=== PATIENT | male | born 1935 | race Caucasian/White ===

== ENCOUNTER → 2017-08-08 10:56 | Outpatient (CLI) | payer OTHER, MEDICARE, SELFPAY ==
[2017-08-08 13:11] LABS: Amphetamine Urine VISTA NEGATIVE (<1000 ng/mL); Barbiturate Urine VISTA NEGATIVE (< 200 ng/mL); Benzodiazepine Urine VISTA NEGATIVE (< 200 ng/mL); Cocaine Urine VISTA NEGATIVE (< 300 ng/mL); Ecstacy Urine VISTA NEGATIVE (< 500 ng/mL); Methadone Urine VISTA NEGATIVE (< 300 ng/mL); PCP Urine VISTA NEGATIVE (< 25 ng/mL); THC Urine VISTA NEGATIVE (< 50 ng/mL); Vista UDS pH Range 6
== END ==
PROVIDERS: Family Provider Family Medicine; PCP Family Medicine; Visit Provider Anesthesiology Pain Medicine
DX: F11.20 Opioid dependence, uncomplicated (principal)
CPT/HCPCS: 80307

== ENCOUNTER → 2017-08-26 12:12 | Outpatient (CLI) | payer OTHER, MEDICARE, SELFPAY ==
[2017-08-26 14:03] LABS: Absolute Neutrophil Count 4.4 X10^3/uL (2.0-7.7); Basophil# 0.07 X10^3/uL; Basophil% 0.9 % (0-1); Eosinophil# 0.27 X10^3/uL; Eosinophils% 3.4 % (0-5); Hematocrit 37.7 % (40-54); Hemoglobin 12.6 g/dl (13.0-16.5); Lymphocyte % 24.8 % (19-41); Mean Corp Hgb Conc 33.4 g/gl (32-36); Mean Corpuscular Hgb 29.9 pg (27.0-32.0); Mean Corpuscular Volume 89.5 fL (80-94); Mean Platelet Vol. 9.3 fl (6.2-12.0); Monocyte% 14.9 % (0-10); Neutrophil # 4.42 X10^3/uL (2.7-7.7); Neutrophil % 54.9 % (47-70); POSITIVE COUNT NO; POSITIVE DIFFERENTIAL NO; POSITIVE MORPHOLOGY NO; Platelet Count 464 K/mm3 (150-450); RBC Distribution Width CV 14.6 % (11.6-14.6); RBC Distribution Width SD 46.7 fl (35.1-43.9); Red Blood Count 4.21 M/mm3 (4.6-6.2); White Blood Count 8.1 K/mm3 (4.4-11.0)
[2017-08-26 14:40] LABS: ALB/GLOB Ratio 1.1 RATIO (0.9-2.4); AST(SGOT) 20 U/L (15-37); Alanine Aminotransfer ALT/SGPT 19 U/L (16-61); Albumin, Serum 3.7 g/dL (3.2-5.0); Alkaline Phosphatase 61 U/L (45-117); Anion Gap 9 (5-15); BUN 32 mg/dL (7-18); BUN/Creat Ratio 18.4 RATIO (10-20); Calcium,Total 8.6 mg/dL (8.5-10.1); Chloride 106 mmol/L (98-107); Creatinine, Serum 1.74 mg/dL (0.70-1.30); EST Glomerular Filtration Rate 40 mL/min (>60); Est Glom Filt Rate - Afr Amer 49 mL/min (>60); Globulin 3.3 g/dL (2.2-4.2); Glucose 85 mg/dL (74-106); Potassium 3.9 mmol/L (3.5-5.1); Sodium Level 140 mmol/L (136-145); Thyroid Stim Hormone (TSH) 2.58 uIU/mL (0.358-3.74)
== END ==
PROVIDERS: Family Provider Family Medicine; PCP Family Medicine; Visit Provider Family Medicine
DX: R60.0 Localized edema (principal)
CPT/HCPCS: 36415; 80053; 84443; 85025

== ENCOUNTER → 2017-09-03 14:06 | Outpatient (CLI) | payer OTHER, MEDICARE, SELFPAY ==
--- NOTE | 2017-09-03 14:11 | ECHOD_ITS ---
Reason For Study: PEDAL EDEMA Procedure This was a 2D Doppler, Color Flow transthoracic echocardiogram. The exam was of adequate technical quality. Exam performed in department. Left Ventricle Normal LV size. Mild concentric left ventricular hypertrophy. Left ventricular systolic function is normal. The estimated ejection fraction is 55 %. No evidence for diastolic dysfunction. No regional wall motion abnormalities noted. Right Ventricle Normal RV size. Normal systolic function. Atria Normal left atrium. Normal right atrium. No doppler evidence for ASD. Mitral Valve There is mild mitral annular calcification. Extension of the mitral annular calcification onto the base of the posterior mitral valve leaflet. Mild (1+) mitral valve insufficiency. Tricuspid Valve Normal tricuspid valve. Trivial tricuspid valve insufficiency. Right ventricular systolic pressure estimated to be 26 mmHg. Aortic Valve Trisinus/trileaflet aortic valve. Mild focal aortic valve calcification. Pulmonic Valve The pulmonic valve is not well visualized. Great Vessels Normal sized aortic root. Pericardium/Pleural No pericardial effusion. MMode/2D Measurements & Calculations LVIDd: 4.3 cm IVSd: 1.4 cm Ao root diam: 3.2 cm LVIDs: 3.1 cm LVPWd: 1.5 cm RVDd: 2.9 cm FS: 27.8 % LAV(MOD-bp): 64.0 ml EDV(MOD-sp4): 103.9 ml SV(MOD-sp4): 52.7 ml LAV(MOD-bp) Indexed: 32.4 ml/m2 ESV(MOD-sp4): 51.2 ml LAV(MOD-sp2): 61.5 ml EF(MOD-sp4): 50.7 % LAV(MOD-sp4): 54.3 ml LA A4 area: 19.6 cm2 RA A4 area: 11.0 cm2 Time Measurements MV dec time: 0.22 sec Doppler Measurements & Calculations MV E max andi: 87.5 cm/sec Med Peak E' Andi: 7.7 cm/sec Ao V2 max: 171.2 cm/sec MV A max andi: 126.8 cm/sec E/E' med: 11.4 Ao max P.7 mmHg MV E/A: 0.69 LV V1 max: 86.2 cm/sec PA V2 max: 140.4 cm/sec TR max andi: 237.0 cm/sec LV V1 max P.0 mmHg TR max P.8 mmHg Interpretation Summary Left ventricular systolic function is normal. The estimated ejection fraction is 55 %. Mild concentric left ventricular hypertrophy. There is mild mitral annular calcification. Extension of the mitral annular calcification onto the base of the posterior mitral valve leaflet. Mild (1+) mitral valve insufficiency. Trivial tricuspid valve insufficiency. Mild focal aortic valve calcification. Right ventricular systolic pressure estimated to be 26 mmHg. No evidence for diastolic dysfunction. Ordering Physician: Angeline Batista Referring Physician: Angeline Batista Performed By: Isabel Fowler RDCS
== END ==
PROVIDERS: Family Provider Family Medicine; PCP Family Medicine; Visit Provider Family Medicine
DX: R60.0 Localized edema (principal)
CPT/HCPCS: 93306

== ENCOUNTER → 2017-12-10 11:36 | Outpatient (CLI) | payer OTHER, MEDICARE, SELFPAY ==
[2017-12-10 12:28] LABS: Erythrocyte Sedimentation Rate 11 mm/hr (0-20)
[2017-12-10 12:29] LABS: Hematocrit 40.2 % (40-54); Hemoglobin 13.3 g/dl (13.0-16.5); Mean Corp Hgb Conc 33.1 g/gl (32-36); Mean Corpuscular Hgb 29.9 pg (27.0-32.0); Mean Corpuscular Volume 90.3 fL (80-94); Platelet Count 399 K/mm3 (150-450); RBC Distribution Width CV 15.2 % (11.6-14.6); RBC Distribution Width SD 48.9 fl (35.1-43.9); Red Blood Count 4.45 M/mm3 (4.6-6.2); Scan Indicated on CBC? Y/N NO; White Blood Count 11.2 K/mm3 (4.4-11.0)
[2017-12-10 12:51] LABS: D-Dimer Quantitative (DVT/PE) < 0.27 FEU/ug/m (0.27-0.49)
[2017-12-11 16:34] LABS: Angiotensin Convert Enzyme 24 U/L (14-82)
== END ==
PROVIDERS: Family Provider Family Medicine; PCP Family Medicine; Visit Provider Internal Medicine Pulmonary Disease
DX: D86.9 Sarcoidosis, unspecified (principal); R07.9 Chest pain, unspecified
CPT/HCPCS: 36415; 71046; 71100; 82164; 85027; 85379; 85652

== ENCOUNTER → 2017-12-24 12:14 | Outpatient (CLI) | payer OTHER, MEDICARE, SELFPAY ==
[2017-12-24 14:16] LABS: T4 Total, Thyroxin 12.4 ug/dL (4.5-12.1); Thyroid Stim Hormone (TSH) 0.34 uIU/mL (0.358-3.74)
== END ==
PROVIDERS: Family Provider Family Medicine; PCP Family Medicine; Visit Provider Family Medicine
DX: E03.9 Hypothyroidism, unspecified (principal)
CPT/HCPCS: 36415; 84436; 84443

== ENCOUNTER → 2018-05-06 14:15 | Outpatient (CLI) | payer OTHER, MEDICARE, SELFPAY ==
[2018-05-06 15:59] LABS: Amphetamine Urine VISTA NEGATIVE (<1000 ng/mL); Barbiturate Urine VISTA NEGATIVE (< 200 ng/mL); Benzodiazepine Urine VISTA NEGATIVE (< 200 ng/mL); Cocaine Urine VISTA NEGATIVE (< 300 ng/mL); Ecstacy Urine VISTA NEGATIVE (< 500 ng/mL); Methadone Urine VISTA NEGATIVE (< 300 ng/mL); PCP Urine VISTA NEGATIVE (< 25 ng/mL); THC Urine VISTA NEGATIVE (< 50 ng/mL); Vista UDS pH Range 7
== END ==
PROVIDERS: Family Provider Family Medicine; PCP Family Medicine; Referring Provider Anesthesiology Pain Medicine; Visit Provider Anesthesiology Pain Medicine
DX: F11.20 Opioid dependence, uncomplicated (principal)
CPT/HCPCS: 80307

== ENCOUNTER → 2018-06-23 10:52 | Outpatient (CLI) | payer OTHER, MEDICARE, SELFPAY ==
[2018-06-23 12:35] LABS: Absolute Lymphocyte Count 2.74 X10^3/ul (0.83-4.51); Absolute Neutrophil Count 7.6 X10^3/uL (2.0-7.7); Basophil# 0.06 X10^3/uL; Basophil% 0.5 % (0-1); Eosinophil# 0.31 X10^3/uL; Eosinophils% 2.5 % (0-5); Hematocrit 41.2 % (40-54); Hemoglobin 13.3 g/dl (13.0-16.5); Lymphocyte # 2.74 X10^3/ul (4.0); Lymphocyte % 21.8 % (19-41); Mean Corp Hgb Conc 32.3 g/gl (32-36); Mean Platelet Vol. 9.9 fl (6.2-12.0); Monocyte# 1.77 X10^3/uL; Monocyte% 14.1 % (0-10); Neutrophil # 7.63 X10^3/uL (2.7-7.7); Neutrophil % 60.5 % (47-70); Platelet Count 442 K/mm3 (150-450); RBC Distribution Width CV 14.9 % (11.6-14.6); RBC Distribution Width SD 49.1 fl (35.1-43.9); Red Blood Count 4.58 M/mm3 (4.6-6.2); White Blood Count 12.6 K/mm3 (4.4-11.0)
[2018-06-23 12:38] LABS: Differential Indicated SCAN CRITERIA MET; POSITIVE COUNT NO; POSITIVE DIFFERENTIAL YES; POSITIVE MORPHOLOGY NO
[2018-06-23 13:05] LABS: ALB/GLOB Ratio 1.2 RATIO (0.9-2.4); AST(SGOT) 17 U/L (15-37); Alanine Aminotransfer ALT/SGPT 18 U/L (16-61); Albumin, Serum 3.7 g/dL (3.2-5.0); Alkaline Phosphatase 84 U/L (45-117); Anion Gap 11 (5-15); BUN 31 mg/dL (7-18); BUN/Creat Ratio 17.4 RATIO (10-20); Chloride 103 mmol/L (98-107); Creatinine, Serum 1.78 mg/dL (0.70-1.30); EST Glomerular Filtration Rate 39 mL/min (>60); Est Glom Filt Rate - Afr Amer 47 mL/min (>60); Globulin 3.1 g/dL (2.2-4.2); Glucose 89 mg/dL (74-106); Potassium 4.5 mmol/L (3.5-5.1); Protein, Total 6.8 g/dL (6.4-8.2); Sodium Level 139 mmol/L (136-145); Thyroid Stim Hormone (TSH) 0.17 uIU/mL (0.358-3.74)
[2018-06-24 10:27] LABS: Pathologist Review Reviewed
== END ==
PROVIDERS: Family Provider Family Medicine; PCP Family Medicine; Referring Provider Family Medicine; Visit Provider Family Medicine
DX: R60.0 Localized edema (principal)
CPT/HCPCS: 36415; 80053; 84443; 85025

== ENCOUNTER → 2018-07-11 08:04 | Outpatient (CLI) | payer OTHER, MEDICARE, SELFPAY ==
[2018-07-11 09:39] LABS: Erythrocyte Sedimentation Rate 6 mm/hr (0-20)
[2018-07-16 11:55] LABS: Angiotensin Convert Enzyme 32 U/L (14-82)
== END ==
PROVIDERS: Family Provider Family Medicine; PCP Family Medicine; Referring Provider Internal Medicine Pulmonary Disease; Visit Provider Internal Medicine Pulmonary Disease
DX: D86.9 Sarcoidosis, unspecified (principal); R07.9 Chest pain, unspecified; R60.9 Edema, unspecified
CPT/HCPCS: 36415; 82164; 85652

== ENCOUNTER → 2018-07-21 07:39 | Outpatient (CLI) | payer OTHER, MEDICARE, SELFPAY ==
--- NOTE | 2018-07-21 07:43 | CT_ITS ---
STUDY: CT CHEST WITHOUT CONTRAST REASON FOR EXAM: Male, 83 years old. Left posterior rib pain. RADIATION DOSAGE (If Supplied By Facility): CTDIvol = ( 14.71 ) mGy, DLP = ( 584.57 ) mGycm TECHNIQUE: Transaxial imaging was performed without the administration of intravenous contrast material. Multiplanar coronal and sagittal images were reformatted. Individualized dose optimization techniques were used for this CT. COMPARISON: None. FINDINGS: Focal area of airspace disease in the superior segment of the right upper lobe. There is evidence of a bronchiectasis and increased markings at the lung bases with areas of confluence worse in the right lower lobe suggestive of a chronic scarring. There is no demonstrated pleural abnormality. There are calcifications of the coronary arteries. There are multiple small lymph nodes within the mediastinum, which are normal in size and morphology most compatible with reactive lymph hyperplasia. Normal hilar regions. Normal unenhanced pulmonary arteries. There is atherosclerotic calcification of the aortic arch with tortuosity and elongation of the aortic arch and descending thoracic aorta. There are multi-level degenerative changes of the thoracic spine. There is no demonstrated abnormality of the visualized upper abdomen. CT/Chest without Contrast IMPRESSION: Findings suggestive scarring with bronchiectasis in the lower lobes. Focal area of the airspace disease in the posterior aspect of the right upper lobe. Electronically Signed: Dipak Moran, at 9:16 EDT , Service support ,
== END ==
PROVIDERS: Family Provider Family Medicine; PCP Family Medicine; Referring Provider Internal Medicine Pulmonary Disease; Visit Provider Internal Medicine Pulmonary Disease
DX: R07.81 Pleurodynia (principal); D86.9 Sarcoidosis, unspecified
CPT/HCPCS: 71250

== ENCOUNTER → 2018-11-25 08:35 | Outpatient (CLI) | payer OTHER, MEDICARE, SELFPAY ==
--- NOTE | 2018-11-25 08:38 | RAD_ITS ---
STUDY: X-RAY - ESOPHAGUS (BARIUM SWALLOW) WITH FLUOROSCOPY REASON FOR EXAM: Male, 83 years old. Dysphagia. Recent esophageal dilatation. TECHNIQUE: view(s) of the esophagus were obtained following swallowing of barium. FLUOROSCOPY TIME (if supplied): (0:40) minutes/seconds COMPARISON: Comparison is made with prior study dated November 28, 2010. FINDINGS: There is no demonstrated esophageal foreign body. There is no demonstrated stricture or mucosal abnormality. There is a small hiatal hernia of the fundus of the stomach. The patient ingested a 12 mm tablet of barium. The tablet is temporarily trapped at the gastroesophageal junction. There is atherosclerotic calcification of the aortic arch with tortuosity of the descending aorta. Normal visualized pulmonary parenchyma. Normal visualized osseous structures of the thorax. RAD/Esophagus Only IMPRESSION: Normal plain film x-ray examination (barium swallow) of the esophagus. Electronically Signed: Dipak Moran, at 15:20 EDT , Service support ,
== END ==
PROVIDERS: Family Provider Family Medicine; PCP Family Medicine; Referring Provider Internal Medicine Gastroenterology; Visit Provider Internal Medicine Gastroenterology
DX: R13.10 Dysphagia, unspecified (principal)
CPT/HCPCS: 74220

== ENCOUNTER → 2019-09-08 09:56 | Outpatient (CLI) | payer OTHER, MEDICARE, SELFPAY ==
[2019-09-08 13:16] LABS: T4 Total, Thyroxin 10.3 ug/dL (4.5-12.1); Thyroid Stim Hormone (TSH) 5.28 uIU/mL (0.358-3.74)
== END ==
PROVIDERS: PCP Family Medicine; Visit Provider Family Medicine
DX: E03.9 Hypothyroidism, unspecified (principal)
CPT/HCPCS: 36415; 84436; 84443; 84481

== ENCOUNTER → 2019-10-13 09:57 | Outpatient (CLI) | payer OTHER, MEDICARE, SELFPAY ==
[2019-10-13 10:58] LABS: Amphetamine Urine VISTA NEGATIVE (<1000 ng/mL); Barbiturate Urine VISTA NEGATIVE (< 200 ng/mL); Benzodiazepine Urine VISTA NEGATIVE (< 200 ng/mL); Cocaine Urine VISTA NEGATIVE (< 300 ng/mL); Ecstacy Urine VISTA NEGATIVE (< 500 ng/mL); Methadone Urine VISTA NEGATIVE (< 300 ng/mL); PCP Urine VISTA NEGATIVE (< 25 ng/mL); THC Urine VISTA NEGATIVE (< 50 ng/mL); Vista UDS pH Range 5
== END ==
PROVIDERS: PCP Family Medicine; Referring Provider Anesthesiology Pain Medicine; Visit Provider Anesthesiology Pain Medicine
DX: F11.20 Opioid dependence, uncomplicated (principal)
CPT/HCPCS: 80307

== ENCOUNTER 2019-11-01 12:28 | Emergency (ER) | payer OTHER, MEDICARE, SELFPAY ==
[2019-11-01 12:30] VITALS: BP 149/71; PULSE 84; RESP 17; TEMP 36.6; O2SAT 96; BMI 29.5
--- NOTE | 2019-11-01 12:47 | CT_ITS ---
STUDY: CT CERVICAL SPINE WITHOUT CONTRAST REASON FOR EXAM: Male, 84 years old. PT STATED FALL TODAY, LACERATION TO HEAD, HX C SPINE SURGERY RADIATION DOSAGE (If Supplied By Facility): CTDIvol = ( 24.85 ) mGy, DLP = ( 640.76 ) mGycm TECHNIQUE: High resolution transaxial imaging was performed without contrast material. Sagittal and coronal images were reconstructed. Individualized dose optimization techniques were used for this CT. COMPARISON: CT cervical spine April 27, 2013 FINDINGS: Normal craniovertebral junction. There is hypertrophy of the transverse ligament of the atlas with mild posterior displacement of the superior and inferior longitudinal fibers of the cruciform ligament, producing minimal ventral thecal sac flattening, but without cervical cord impingement. There are mild degenerative changes in the anterior atlantoaxial articulation. Normal odontoid process. There is straightening of the normal cervical lordosis. There is a long cervical spine fusion with bilateral spinal rods and pedicle screws. C3, C4 C5 C6 laminectomy. C2-3: Normal endplates. There is mild disc space narrowing C2-C3 without neural foraminal narrowing or central stenosis.. Normal central canal and intervertebral neuroforamina. C3-4: There is posterior osteophytosis without neural foramina narrowing or central stenosis. C4-5: There is posterior osteophytosis as well as laminectomy. There is no significant central stenosis. C5-6: There is a fused appearance of C5-C6. There is a central osteophyte extending into the canal. There is mild neural foraminal narrowing. There is no significant central stenosis. C6-7: There is a partially calcified disc. There is minimal neural foraminal narrowing no significant central stenosis. C7-T1: There is spondylosis without neural foramina narrowing or central stenosis. There is atherosclerotic disease of the aorta. There are reactive appearing lymph nodes within the upper mediastinum. CT/Spine Cervical without Contras IMPRESSION: Status post cervical spine fusion laminectomy without visualized acute loss of height or alignment. Degenerative change, relatively stable since prior study. Electronically Signed: Saige Acharya MD at 13:34 EDT Tel , Service support ,
--- NOTE | 2019-11-01 12:47 | CT_ITS ---
STUDY: CT BRAIN WITHOUT CONTRAST REASON FOR EXAM: Male, 84 years old. PT STATED FALL TODAY, LACERATION TO HEAD, HX C SPINE SURGERY RADIATION DOSAGE (If Supplied By Facility): CTDIvol = ( 44.99 ) mGy, DLP = ( 762.36 ) mGycm TECHNIQUE: Transaxial CT imaging of the brain was performed without administration of intravenous contrast material. Individualized dose optimization techniques were used for this CT. COMPARISON: None. FINDINGS: There is cerebral atrophy with widening of the extra-axial spaces and ventricular dilatation. There are areas of decreased attenuation within the white matter tracts of the supratentorial brain, consistent with microvascular disease changes. There is no intracranial hemorrhage. There are no findings of an acute ischemic infarction. Normal soft tissue structures. Normal visualized paranasal sinuses. CT/Brain/Head without Contrast IMPRESSION: Chronic involutional changes of the brain. Electronically Signed: Kadeem Jackson MD at 13:23 EDT Tel , Service support ,
--- NOTE | 2019-11-01 12:56 | ED.DCSUM_ITS ---
- ER Visit Summary Date of Service: 11/01/19 Chief Complaint: Fall History of Present Illness: The patient is a [address] Batista. Patient reports that he is difficulties with his balance. Today he lost his balance while planting hoskins. He hit his head on a rock. He denies loss of consciousness. He is not on anticoagulants. He does report he has neck pain, but states that this is chronic from a prior cervical fusion. He denies any back, shoulder, wrist, or hip pain. His tetanus is up-to-date. Physical Examination: Vitals: Stable. Afebrile. Head: 4 cm Y-shaped laceration to the anterior portion of his scalp. There is no hair in this area. The white portion of this is approximately 4 mm wide and does appear to have good blood flow. Neck: Mild diffuse vertebral tenderness. No point tenderness. Limited range of motion secondary to his prior fusion. Back: No vertebral tenderness. General: A&O x 3. NAD. Cardiovascular exam: Regular rate and rhythm, no murmur, rub or gallop. Respiratory exam: Chest nontender. No crepitus. Clear to auscultation bilatera lly. No wheezes or stridor. Abdominal exam: Soft, nontender, nondistended, normal bowel sounds. No pain in RUQ or LUQ specifically. No peritoneal signs. Extremity: Full range of motion of his right wrist without pain. No pain with axial load at the wrist. 4 cm in diameter proximal right forearm skin tear. 8 cm in diameter distal right forearm skin tear that is irregular.. Test Results: Clinical Impression(s) from Imaging Studies Brain CT 11/01/19 12:47 IMPRESSION: Chronic involutional changes of the brain. Electronically Signed: Kadeem Jackson MD at 13:23 EDT Tel , Service support , Cervical Spine CT 11/01/19 12:47 IMPRESSION: Status post cervical spine fusion laminectomy without visualized acute loss of height or alignment. Degenerative change, relatively stable since prior study. Electronically Signed: Saige Acharya MD at 13:34 EDT Tel , Service support , Emergency Department Course and Treatment: Patient is unable to swallow pills due to a prior surgery. He was given Lortab elixir and is resting comfortably. Patient had his wound anesthetized repaired. He tolerated this well. Treatment Plan: Patient will be discharged instructions to follow-up with his primary care physician as needed. Return to the emergency department for any worsening symptoms. Disposition: To home in improved and stable condition. Impression: 1. Fall. 2. Scalp laceration, 4 cm, repaired. 3. Skin tears to right forearm. Procedure note: Wound was cleansed with chlorhexidine soap. Anesthetized with 1% lidocaine without epinephrine. Copiously irrigated with normal saline. Wound was explored there is no foreign material present. It was closed with 8 simple interrupted 5- 0 rapid Vicryl sutures. The patient tolerated it well. This note was generated with [employer] dictation software. It may contain incorrect words, spelling, and punctuation that were not noted in review of the chart prior to signing ED Disposition - Plan for ED Patient: Instructions: ED Wound Care Referrals: Angeline Batista MD [Primary Care Provider] - As Needed
== END 2019-11-01 14:03 | disposition home or self-care (01) ==
PROVIDERS: Emergency Provider Emergency Medicine; PCP Family Medicine
DX: S01.01XA Laceration without foreign body of scalp, initial encounter (principal); S51.811A Laceration without foreign body of right forearm, initial encounter; W01.10XA Fall on same level from slipping, tripping and stumbling with subsequent striking against unspecified object, initial encounter; Y93.H2 Activity, gardening and landscaping; Y92.9 Unspecified place or not applicable; Y99.9 Unspecified external cause status; D86.9 Sarcoidosis, unspecified; R05 Cough; M54.2 Cervicalgia; G89.29 Other chronic pain; Z79.899 Other long term (current) drug therapy; Z79.52 Long term (current) use of systemic steroids; Z98.1 Arthrodesis status
CPT/HCPCS: 12002; 70450; 72125; 99283

== ENCOUNTER → 2019-11-03 16:06 | Outpatient (CLI) | payer OTHER, MEDICARE, SELFPAY ==
[2019-11-01 12:30] VITALS: BMI 29.5
[2019-11-03 18:02] LABS: Anion Gap 5 (5-15); BUN 40 mg/dL (7-18); BUN/Creat Ratio 22.3 RATIO (10-20); Calcium,Total 8.2 mg/dL (8.5-10.1); Chloride 116 mmol/L (98-107); Creatinine, Serum 1.79 mg/dL (0.70-1.30); EST Glomerular Filtration Rate 39 mL/min (>60); Est Glom Filt Rate - Afr Amer 47 mL/min (>60); Glucose 140 mg/dL (74-106); Potassium 4.4 mmol/L (3.5-5.1); Sodium Level 144 mmol/L (136-145)
== END ==
PROVIDERS: PCP Family Medicine; Referring Provider Family Medicine; Visit Provider Family Medicine
DX: R94.4 Abnormal results of kidney function studies (principal)
CPT/HCPCS: 36415; 80048

== ENCOUNTER → 2019-12-15 09:47 | Outpatient (CLI) | payer OTHER, MEDICARE, SELFPAY ==
--- NOTE | 2019-12-15 09:50 | RAD_ITS ---
STUDY: X-RAY - ESOPHAGUS (BARIUM SWALLOW) WITH FLUOROSCOPY REASON FOR EXAM: Male, 84 years old. DYSPHAGIA, PROX ESOPH TECHNIQUE: 30 view(s) of the esophagus were obtained following swallowing of barium. FLUOROSCOPY TIME (if supplied): (0:55) minutes/seconds COMPARISON: Comparison is made with prior study dated 11/25/2018. FINDINGS: There is no demonstrated esophageal foreign body. There is no demonstrated stricture or mucosal abnormality. There is circumferential narrowing of the distal portion of the esophagus at the gastroesophageal junction. The patient was unable to swallow a 12 mm tablet of barium. There is atherosclerotic calcification of the aortic arch with tortuosity of the descending aorta. Normal visualized pulmonary parenchyma. Normal visualized osseous structures of the thorax. RAD/Esophagus Single Contrast IMPRESSION: Circumferential narrowing of the distal esophagus at the gastroesophageal junction. Patient was unable to swallow the 12 mm tablet of barium. Electronically Signed: Dipak Moran, at 9:31 EDT , Service support ,
== END ==
PROVIDERS: PCP Family Medicine; Referring Provider Family Medicine; Visit Provider Family Medicine
DX: R13.11 Dysphagia, oral phase (principal)
CPT/HCPCS: 74220

== ENCOUNTER → 2020-01-07 11:08 | Outpatient (CLI) | payer OTHER, MEDICARE, SELFPAY ==
[2020-01-07 13:25] LABS: Amphetamine Urine VISTA NEGATIVE (<1000 ng/mL); Barbiturate Urine VISTA NEGATIVE (< 200 ng/mL); Benzodiazepine Urine VISTA NEGATIVE (< 200 ng/mL); Cocaine Urine VISTA NEGATIVE (< 300 ng/mL); Ecstacy Urine VISTA NEGATIVE (< 500 ng/mL); Methadone Urine VISTA NEGATIVE (< 300 ng/mL); PCP Urine VISTA NEGATIVE (< 25 ng/mL); THC Urine VISTA NEGATIVE (< 50 ng/mL); Vista UDS pH Range 5
== END ==
PROVIDERS: PCP Family Medicine; Referring Provider Anesthesiology Pain Medicine; Visit Provider Anesthesiology Pain Medicine
DX: F11.20 Opioid dependence, uncomplicated (principal)
CPT/HCPCS: 80307

== ENCOUNTER → 2020-03-08 11:19 | Outpatient (CLI) | payer OTHER, MEDICARE, SELFPAY ==
[2020-03-08 15:28] LABS: ALB/GLOB Ratio 0.9 RATIO (0.9-2.4); AST(SGOT) 17 U/L (15-37); Alanine Aminotransfer ALT/SGPT 25 U/L (16-61); Albumin, Serum 3.3 g/dL (3.2-5.0); Alkaline Phosphatase 78 U/L (45-117); Anion Gap 7 (5-15); BUN 29 mg/dL (7-18); BUN/Creat Ratio 17.9 RATIO (10-20); Calcium,Total 8.5 mg/dL (8.5-10.1); Chloride 107 mmol/L (98-107); Creatinine, Serum 1.62 mg/dL (0.70-1.30); EST Glomerular Filtration Rate 43 mL/min (>60); Est Glom Filt Rate - Afr Amer 52 mL/min (>60); Globulin 3.5 g/dL (2.2-4.2); Glucose 91 mg/dL (74-106); Potassium 4.3 mmol/L (3.5-5.1); Protein, Total 6.8 g/dL (6.4-8.2); Sodium Level 141 mmol/L (136-145)
== END ==
PROVIDERS: PCP Family Medicine; Referring Provider Family Medicine; Visit Provider Family Medicine
DX: R60.9 Edema, unspecified (principal); E55.9 Vitamin D deficiency, unspecified
CPT/HCPCS: 36415; 80053; 82306

== ENCOUNTER → 2020-04-12 14:44 | Outpatient (CLI) | payer OTHER, MEDICARE, SELFPAY ==
[2020-04-12 17:51] LABS: Hematocrit 39.8 % (40-54); Hemoglobin 12.7 g/dL (13.0-16.5); Mean Corp Hgb Conc 31.9 g/dL (32-36); Mean Corpuscular Hgb 29.6 pg (27.0-32.0); Mean Corpuscular Volume 92.8 fL (80-94); Mean Platelet Vol. 9.8 fl (6.2-12.0); Platelet Count 466 K/mm3 (150-450); RBC Distribution Width SD 54.1 fl (35.1-43.9); Red Blood Count 4.29 M/mm3 (4.6-6.2); White Blood Count 10.9 K/mm3 (4.4-11.0)
[2020-04-12 18:28] LABS: Anion Gap 6 (5-15); BUN 35 mg/dL (7-18); BUN/Creat Ratio 19.1 RATIO (10-20); Calcium,Total 8.6 mg/dL (8.5-10.1); Chloride 105 mmol/L (98-107); Creatinine, Serum 1.83 mg/dL (0.70-1.30); EST Glomerular Filtration Rate 38 mL/min (>60); Est Glom Filt Rate - Afr Amer 46 mL/min (>60); Glucose 102 mg/dL (74-106); Potassium 4.2 mmol/L (3.5-5.1); Sodium Level 138 mmol/L (136-145); Thyroid Stim Hormone (TSH) 3.35 uIU/mL (0.358-3.74)
== END ==
PROVIDERS: PCP Family Medicine; Visit Provider Family Medicine
DX: N18.9 Chronic kidney disease, unspecified (principal); E03.9 Hypothyroidism, unspecified
CPT/HCPCS: 36415; 80048; 83735; 84443; 85027

== ENCOUNTER → 2020-04-26 08:22 | Outpatient (CLI) | payer OTHER, MEDICARE, SELFPAY ==
--- NOTE | 2020-04-26 08:39 | ECHOD_ITS ---
Reason For Study: AFIB Procedure This was a 2D Doppler, Color Flow transthoracic echocardiogram. The exam was of adequate technical quality. Exam performed in department. Left Ventricle Normal LV size. Sigmoid septum. Left ventricular systolic function is normal. The estimated ejection fraction is 55 %. Diastolic function is indeterminate. No regional wall motion abnormalities noted. Right Ventricle Normal RV size. Normal systolic function. Atria Normal left atrium. Normal right atrium. No doppler evidence for ASD. Mitral Valve There is mild mitral annular calcification. Extension of the mitral annular calcification onto the base of the posterior mitral valve leaflet. Trivial mitral valve insufficiency. Tricuspid Valve Normal tricuspid valve. Trivial tricuspid valve insufficiency. Right ventricular systolic pressure estimated to be 32 mmHg. Aortic Valve Trisinus/trileaflet aortic valve. Mild diffuse aortic valve thickening. Mild focal aortic valve calcification. Pulmonic Valve The pulmonic valve is not well visualized. Great Vessels Normal sized aortic root. Pericardium/Pleural No pericardial effusion. MMode/2D Measurements & Calculations LVIDd: 5.7 cm IVSd: 1.2 cm Ao root diam: 3.1 cm LVIDs: 4.2 cm LVPWd: 1.3 cm RVDd: 3.5 cm FS: 25.4 % LAV(MOD-bp): 52.0 ml LA A4 area: 18.2 cm2 LA dimension(2D): 4.0 cm LAV(MOD-bp) Indexed: 26.0 ml/m2 LAV(MOD-sp2): 56.3 ml LAV(MOD-sp4): 48.7 ml RA A4 area: 15.5 cm2 Time Measurements MV dec time: 0.21 sec Doppler Measurements & Calculations MV E max andi: 91.0 cm/sec Lat Peak E' Andi: 6.4 cm/sec Med Peak E' Andi: 5.1 cm/sec MV A max andi: 110.0 cm/sec E/E' lat: 14.2 E/E' med: 17.8 MV E/A: 0.83 Ao V2 max: 159.2 cm/sec LV V1 max: 76.6 cm/sec PA V2 max: 131.1 cm/sec Ao max P.1 mmHg LV V1 max P.3 mmHg TR max andi: 268.9 cm/sec TR max P.9 mmHg Interpretation Summary Left ventricular systolic function is normal. The estimated ejection fraction is 55 %. Sigmoid septum. Extension of the mitral annular calcification onto the base of the posterior mitral valve leaflet. Trivial mitral valve insufficiency. Trivial tricuspid valve insufficiency. Mild diffuse aortic valve thickening. Mild focal aortic valve calcification. Right ventricular systolic pressure estimated to be 32 mmHg. Diastolic function is indeterminate. Ordering Physician: Marciano Guaman Referring Physician: Marciano Guaman Performed By: Garth, Elsie, RDCS, RVT
== END ==
PROVIDERS: PCP Family Medicine; Referring Provider Family Medicine; Visit Provider Family Medicine
DX: I48.91 Unspecified atrial fibrillation (principal)
CPT/HCPCS: 93306

== ENCOUNTER → 2020-05-02 12:12 | Outpatient (CLI) | payer OTHER, MEDICARE, SELFPAY ==
[2020-05-02 14:00] VITALS: PULSE 72; PULSE 80; PULSE 83; PULSE 84; PULSE 85; PULSE 87; PULSE 88; O2SAT 89; O2SAT 90; O2SAT 92; O2SAT 93; O2SAT 94; O2SAT 95
--- NOTE | 2020-05-03 09:07 | PCM.PSN.6M ---
PSN 6 Minute Walk Test - 6 Minute Walk Test 6 Minute Walk Test: 6 Minute Walk Test PSN:6-Minute Walk Test Start: 05/02/20 14:00 Freq: Status: Active Protocol: RESP.6MINW Document 05/02/20 14:00 [facility] (Rec: 05/02/20 14:03 [facility] [id number]) 6 Minute Walk Test Date Performed 05/02/20 Time Performed 12:30 Height 5 ft 7.5 in Weight: 190 lb Weight in Pounds 190.[address]: Mickey Adames Assistive device used: None Pre-test Oxygen Delivery Method Room Air Pulse Ox (%) 95 Pulse Rate (60-100 beats/min) 72 Dyspnea Carmen Scale (0-10) 3 Reported Symptoms Increased Work of Breathing 1st minute Oxygen Delivery Method Room Air Pulse Ox (%) 93 Pulse Rate (60-100 beats/min) 80 Dyspnea Carmen Scale (0-10) 3 Number of Rests Taken 0 Reported Symptoms Increased Work of Breathing 2nd minute Oxygen Delivery Method Room Air Pulse Ox (%) 92 Pulse Rate (60-100 beats/min) 83 Dyspnea Carmen Scale (0-10) 3 Number of Rests Taken 0 Reported Symptoms Increased Work of Breathing 3rd minute Oxygen Delivery Method Room Air Pulse Ox (%) 93 Pulse Rate (60-100 beats/min) 85 Dyspnea Carmen Scale (0-10) 3 Number of Rests Taken 1 Reported Symptoms Increased Work of Breathing 4th minute Oxygen Delivery Method Room Air Pulse Ox (%) 94 Pulse Rate (60-100 beats/min) 84 Dyspnea Carmen Scale (0-10) 3 Number of Rests Taken 0 Reported Symptoms Increased Work of Breathing 5th minute Oxygen Delivery Method Room Air Pulse Ox (%) 90 Pulse Rate (60-100 beats/min) 87 Dyspnea Carmen Scale (0-10) 3 Number of Rests Taken 1 Reported Symptoms Increased Work of Breathing 6th minute Oxygen Delivery Method Room Air Pulse Ox (%) 89 Pulse Rate (60-100 beats/min) 88 Dyspnea Carmen Scale (0-10) 3 Number of Rests Taken 0 Reported Symptoms Increased Work of Breathing Post-test Oxygen Delivery Method Room Air Pulse Ox (%) 94 Pulse Rate (60-100 beats/min) 83 Dyspnea Carmen Scale (0-10) 3 Reported Symptoms Increased Work of Breathing Full Laps Walked 8 Partial Lap, Number of Tiles Walked 13 Total Distance Walked (ft) 485 - Interpretation Interpretation: The patient ambulated 485 feet over the course of 6 minutes beginning on room air without any assistive devices. Pretesting oxygen saturation was noted to be 95% on room air. With ambulation, the naya oxygen saturation was 89% at minute 6 of testing. This testing indicates the presence of impaired walk distance and significant exertional oxygen desaturation, consistent with a pulmonary limitation to exercise tolerance. - Recommendations Recommendations: There is no indication for the use of supplemental oxygen at this time. However, close interval follow-up is recommended, given the degree of oxygen desaturation noted during the study.
== END ==
PROVIDERS: PCP Family Medicine; Referring Provider Internal Medicine Critical Care Medicine; Visit Provider Internal Medicine Critical Care Medicine
DX: D86.9 Sarcoidosis, unspecified (principal)
CPT/HCPCS: 94618

== ENCOUNTER → 2020-05-03 08:16 | Outpatient (CLI) | payer OTHER, MEDICARE, SELFPAY ==
--- NOTE | 2020-05-05 13:11 | PFT ---
INTRODUCTION: The patient is an 85-year-old male that presents for pulmonary function studies secondary to a diagnosis of sarcoidosis. Respiratory therapy reported that the patient had difficulty comprehending and following proper technique to obtain lung volume data. Bronchodilators were used during testing. INTERPRETATION: Forced expiration spirometry demonstrates the presence of a mild large airways obstructive ventilatory defect. There was no significant response to aerosolized bronchodilators. Lung volumes are unable to be interpreted. Diffusing capacity by single breath CO was reduced at 53% of predicted. IMPRESSION: Irreversible mild large airways obstructive ventilatory defect with disproportionate reduction in diffusing capacity. Lung volumes were unable to be interpreted. There are no previous pulmonary function studies available for comparison.
== END ==
PROVIDERS: PCP Family Medicine; Visit Provider Internal Medicine Critical Care Medicine
DX: D86.9 Sarcoidosis, unspecified (principal)
CPT/HCPCS: 94060; 94726; 94729

== ENCOUNTER → 2020-06-21 13:28 | Outpatient (CLI) | payer OTHER, MEDICARE, SELFPAY ==
[2020-05-10 12:26] VITALS: BMI 30.2
[2020-06-21 14:20] LABS: Amphetamine Urine VISTA NEGATIVE (<1000 ng/mL); Barbiturate Urine VISTA NEGATIVE (< 200 ng/mL); Benzodiazepine Urine VISTA NEGATIVE (< 200 ng/mL); Cocaine Urine VISTA NEGATIVE (< 300 ng/mL); Ecstacy Urine VISTA NEGATIVE (< 500 ng/mL); Methadone Urine VISTA NEGATIVE (< 300 ng/mL); PCP Urine VISTA NEGATIVE (< 25 ng/mL); THC Urine VISTA NEGATIVE (< 50 ng/mL); Vista UDS pH Range 5
== END ==
PROVIDERS: PCP Family Medicine; Referring Provider Anesthesiology Pain Medicine; Visit Provider Anesthesiology Pain Medicine
DX: F11.20 Opioid dependence, uncomplicated (principal)
CPT/HCPCS: 80307

== ENCOUNTER → 2020-09-27 05:54 | Outpatient (CLI) | payer MEDICARE, SELFPAY ==
[2020-09-22 10:37] VITALS: BMI 26.2
--- NOTE | 2020-09-27 08:58 | STRESSREP ---
Stress Test Report Date: 09-27-2020 Procedure: Pharmacologic stress nuclear imaging study Indications: Abnormal ECG; atrial fibrillation; shortness of breath/dyspnea on exertion Consent: Per the patient Procedure: The patient underwent pharmacologic (Regadenoson 0.4mg ) evaluation with a peak heart rate of 88 beats per minute (65%predicted maximal heart rate) and a peak blood pressure of 138/82 mmHg. The baseline ECG demonstrated sinus rhythm/sinus arrhythmia. The peak pharmacologic ECG demonstrated no obvious ECG changes. There was a rare PAC/PVC during recovery. There was no complaint of chest discomfort during pharmacologic infusion or recovery. The examination was discontinued secondary to completion of protocol. Impression: 1. Pharmacologic (Regadenoson) evaluation 2. Peak pharmacologic ECG with no obvious ECG changes. 3. There was a rare PAC/PVC during recovery. 4. Nuclear images pending Myocardial perfusion imaging study: Technique: The patient was injected with 11.7 millicuries of technetium 99m Cardiolite and subsequently rest SPECT Cardiolite nuclear imaging was obtained in the horizontal long, vertical long, and short axis views. The patient underwent pharmacologic (Regadenoson) evaluation with a peak heart rate of 88 beats per minute (65% percent predicted maximal heart rate) and a peak blood pressure of 138/82 mmHg. The patient was injected with 32 point millicuries of technetium 99m Cardiolite and subsequently stress SPECT Cardiolite nuclear imaging was obtained in the horizontal long, vertical long, and short axis views. A gated Cardiolite study at peak stress was obtained. Interpretation: Rest and stress SPECT Cardiolite nuclear imaging status post realignment, normalization, and attenuation correction demonstrate relative uniform tracer uptake and myocardial perfusion appearing within normal limits. There is end systolic thickening and brightening. The gated Cardiolite study demonstrates myocardial thickening and inward wall motion. The reported LVEF is 69%. Impression: 1. Rest and stress SPECT Cardiolite nuclear imaging demonstrate relative uniform tracer uptake and myocardial perfusion appearing within normal limits. 2. The gated Cardiolite study reports an LVEF of 69%. This note was generated with [employer] software. It may contain incorrect words, spelling, and punctuation that were not noted in checking the note before signing.
== END ==
PROVIDERS: PCP Family Medicine; Referring Provider Internal Medicine Cardiovascular Disease; Visit Provider Internal Medicine Cardiovascular Disease
DX: I49.1 Atrial premature depolarization (principal); I48.91 Unspecified atrial fibrillation; I10 Essential (primary) hypertension; R06.00 Dyspnea, unspecified
CPT/HCPCS: 78452; 93017; 93225; 93226; A9500; A4216; J2785

== ENCOUNTER → 2020-10-25 15:54 | Outpatient (CLI) | payer MEDICARE, SELFPAY ==
[2020-10-25 06:03] VITALS: BMI 24.0
--- NOTE | 2020-10-25 15:56 | RAD_ITS ---
STUDY: X-RAY CHEST REASON FOR EXAM: Male, 85 years old. WEIGHT LOSS TECHNIQUE: PA and lateral views of the chest. COMPARISON: Comparison is made with prior study dated 12/10/2017. FINDINGS: Stable elevation of the right hemidiaphragm. Stable increased linear markings at the lung bases more prominent on the left side. This is suggestive of scarring. There is also evidence of a prior aspiration of barium in the left lower lobe. There is no demonstrated pleural abnormality. Normal size heart. Normal mediastinum and maurisio. Normal visualized pulmonary arteries. There is atherosclerotic calcification of the aortic arch with tortuosity. There are diffuse degenerative changes of the visualized thoracic spine. Normal visualized ribs, clavicles, and shoulders. There is no demonstrated abnormality of the visualized soft tissue structures of the upper abdomen. RAD/Chest PA and Lateral IMPRESSION: Stable examination suggests with scarring at the lung bases more prominent on the left side with evidence of prior barium aspiration in the left lower lobe. Electronically Signed: Dipak Moran MD at 13:35 EDT , Service support ,
[2020-10-25 18:16] LABS: Absolute Lymphocyte Count 2.86 X10^3/uL (0.83-4.51); Absolute Neutrophil Count 9.5 X10^3/uL (2.0-7.7); Basophil# 0.09 X10^3/uL; Basophil% 0.6 % (0-1); Eosinophil# 0.23 X10^3/uL; Eosinophils% 1.6 % (0-5); Hematocrit 36.2 % (40-54); Hemoglobin 11.4 g/dL (13.0-16.5); Lymphocyte # 2.86 X10^3/ul (0.83-4.51); Lymphocyte % 19.7 % (19-41); Mean Corp Hgb Conc 31.5 g/dL (32-36); Mean Corpuscular Hgb 29.2 pg (27.0-32.0); Mean Corpuscular Volume 92.6 fL (80-94); Mean Platelet Vol. 9.4 fl (6.2-12.0); Monocyte# 1.53 X10^3/uL; Monocyte% 10.6 % (0-10); NRBC Flagged by Analyzer 0 % (0-5); Neutrophil # 9.45 X10^3/uL (2.7-7.7); Neutrophil % 65.2 % (47-70); POSITIVE DIFFERENTIAL YES; Platelet Count 529 K/mm3 (150-450); RBC Distribution Width CV 15.9 % (11.6-14.6); RBC Distribution Width SD 53.7 fl (35.1-43.9); Red Blood Count 3.91 M/mm3 (4.6-6.2); White Blood Count 14.5 K/mm3 (4.4-11.0)
[2020-10-25 18:42] LABS: ALB/GLOB Ratio 0.7 RATIO (0.9-2.4); AST(SGOT) 21 U/L (15-37); Alanine Aminotransfer ALT/SGPT 23 U/L (16-61); Albumin, Serum 2.9 g/dL (3.2-5.0); Alkaline Phosphatase 103 U/L (45-117); Anion Gap 7 (5-15); BUN 36 mg/dL (7-18); BUN/Creat Ratio 24.2 RATIO (10-20); Calcium,Total 8.6 mg/dL (8.5-10.1); Chloride 106 mmol/L (98-107); Creatinine, Serum 1.49 mg/dL (0.70-1.30); EST Glomerular Filtration Rate 48 mL/min (>60); Est Glom Filt Rate - Afr Amer 58 mL/min (>60); Glucose 95 mg/dL (74-106); PSA,Total - Annual Screen 0.23 ng/mL (0.00-4.00); Potassium 4.3 mmol/L (3.5-5.1); Protein, Total 6.9 g/dL (6.4-8.2); Sodium Level 139 mmol/L (136-145)
[2020-10-25 18:50] LABS: Differential Indicated SCAN CRITERIA MET
[2020-10-25 19:03] LABS: Differential Comment SCANNED; Erythrocyte Sedimentation Rate 27 mm/hr (0-20)
[2020-10-26 12:10] LABS: Pathologist Review Reviewed
== END ==
PROVIDERS: PCP Family Medicine; Referring Provider Family Medicine; Visit Provider Family Medicine
DX: R63.4 Abnormal weight loss (principal); R60.9 Edema, unspecified; Z12.5 Encounter for screening for malignant neoplasm of prostate
CPT/HCPCS: 36415; 71046; 80053; 84153; 85025; 85652; 86141; G0103

== ENCOUNTER → 2020-11-01 | Outpatient (CLI) | payer MEDICARE, SELFPAY ==
[2020-10-25 06:03] VITALS: BMI 24.0
--- NOTE | 2020-11-01 13:15 | TISS_PTH ---
PATIENT: DEMETRIUS BURNS LOC: SUNDAY U#:[id number] AGE/SX: 85/M ROOM: RE11/01/[address]: Dr. Lars Carrington MD : [id number] BED: DIS: 11/01/2020 SPEC #: [id number] RECD: 11/01/20 17:59 STATUS: LUIS EDUARDO ALVAREZStaci #: [id number] MALA: 11/01/20 13:[address]: Lars Carrington DEPT: SURGICAL PATHOLOGY RECD BY: Aden Perez Tissues: Skin of eyelid, NOS Procedures: Surgery Specimen Level IV HEADER OPERATION: Pterygium left eye PRE-OP DIAGNOSIS: Increased size of left eye pterygium TISSUE SUBMITTED: Pterygium left eye MICROSCOPIC DIAGNOSIS Pterygium left eye, excision: Consistent with pterygium with focal calcifications. REGI:carolyn 11/03/2020 MICROSCOPIC DESCRIPTION Slides are reviewed. GROSS DESCRIPTION Received in fixative is one container labeled with the patient's name and designated pterygium left eye. The specimen consists of a piece of blackburn-white soft tissue measuring 0.3 x 0.2 x 0.1 cm. The entire specimen is submitted in one cassette. / SJ:carolyn 11/02/20 TC:5 CPT: [id number]
== END | disposition home or self-care (01) ==
LOC: LABSPEC 11-02 08:10
PROVIDERS: Referring Provider Ophthalmology; Visit Provider Ophthalmology
DX: H11.002 Unspecified pterygium of left eye (principal)
CPT/HCPCS: 88305

== ENCOUNTER → 2020-11-08 13:44 | Outpatient (CLI) | payer MEDICARE, SELFPAY ==
[2020-10-25 06:03] VITALS: BMI 24.0
--- NOTE | 2020-11-08 15:10 | ST.MBS ---
Modified Barium Swallow - Patient Information Study Date: 11/08/20 Study Time: 14:00 Direct Billable Minutes: 150 Total Minutes procedure & reportin Diagnosis: Dysphagia, unspecified Referring Physician: Angeline Batista Reason for Referral: Objectively assess swallow function and risk for aspiration. Medical History: The patient is a 85 year old male who reported the following PMH: swallowing difficulty lasting the past 10 years, multiple esophageal balloon dilations, s/p thyroid cancer with iodine treatment, 30 pound weight loss in the past 2-3 months, cervical fusion of C3-C6 (2002), and recent falls. He denies history of reflux or pneumonia. He has never been seen by speech therapy for dysphagia. He reported he primarily has trouble swallowing foods and stated he feels food become stuck in his throat often. 10/26/20 Chest X-ray IMPRESSION: Stable examination suggests with scarring at the lung bases more prominent on the left side with evidence of prior barium aspiration in the left lower lobe. Mental Status: WNL - Patient able to follow commands for trialing strategies with min repetition. Respiratory Status: Oxygenating on Room Air - Study Findings Consistencies: Thin Liquid, [place] Thick Liquid, Honey Thick Liquid, Pudding, Cookie - Penetration-Aspiration Scale Penetration-Aspiration Scale: OBJECTIVE ASSESSMENT OF SWALLOW FUNCTION (QUANTITATIVE ? PER TRIAL): PENETRATION / ASPIRATION SCALE (CARVER): 1 = does not enter airway 2 = enters airway/above vocal folds/ejected 3 = enters airway/above vocal folds/not ejected 4 = enters airway/contacts vocal folds/ejected 5 = enters airway/contacts vocal folds/not ejected 6 = enters airway/below vocal folds/ejected 7 = enters airway/below vocal folds/not ejected despite effort 8 = enters airway/below vocal folds/no effort VIDEOFLOROSCOPIC SCALE SCORE (CARVER): Grade I = aspiration of material that has penetrated into the laryngeal vestibule, intact cough reflex Grade II = aspiration < 10 % of the bolus, intact cough reflex Grade III = aspiration of < 10 % of the bolus, reduced cough reflex or aspiration of > 10 % of the bolus, intact cough reflex Grade IV = aspiration of > 10 % of the bolus, reduced cough reflex - Penetration-Aspiration Scale Score Thin Liquid via teaspoon Result: 7= enters airways/below vocal folds/not ejected despite effort Comment: Weak, ineffective cough observed Thin Liquid via 1/2 teaspoon with effortful swallow Result: 3= enters airways/above vocal folds/not ejected Thin Liquid via 1/2 teaspoon with effortful swallow Trial 2 Result: 2= enter airway/above vocal folds/ejected Thin Liquid via small single sip from cup Result: 3= enters airways/above vocal folds/not ejected [place] Thick Liquid via teaspoon Effortful swallow Result: 3= enters airways/above vocal folds/not ejected [place] Thick Liquid via small single sip from cup Result: 3= enters airways/above vocal folds/not ejected - SOLVENT PROCESS EXTRACTOR OPERATOR cued cough and re-swallow; however, cough was ineffective to clear contrast from airway. [place] Thick Liquid via small single sip from cup Chin tuck Result: 3= enters airways/above vocal folds/not ejected Thin Liquid via small single sip from cup Chin tuck Result: 3= enters airways/above vocal folds/not ejected Thin Liquid via small single sip from cup Super Supraglottic swallow Result: 3= enters airways/above vocal folds/not ejected Honey Thick Liquid via 1/2 teaspoon with multiple (3), effortful swallows Result: 2= enter airway/above vocal folds/ejected Pudding with multiple (3) swallows Result: 3= enters airways/above vocal folds/not ejected 1/4 Shortbread cookie coated in barium pudding Result: 5= enters airways/contacts vocal folds/not ejected - Pudding contrast appeared to penetrate to the vocal folds and no cough was elicited. Honey Liquid via 1/2 teaspoon Result: 3= enters airways/above vocal folds/not ejected [place] Liquid via 1/2 teaspoon Trial Result: 3= enters airways/above vocal folds/not ejected - Oral Phase Labial Seal: Interlabial escape, no progression to anterior lip Tongue Control During Bolus Hold: Posterior escape of less than half of bolus Bolus Preparation/Mastication: Disorganized chewing/mashing with solid pieces of bolus unchewed Bolus Transport/Lingual Motion: Repetitive/disorganized tongue motion Oral Residue: Residue collection on oral structures - Pharyngeal Phase Initiation of Pharyngeal Swallow: Bolus head in pyriforms Soft Palate Elevation: Trace column of contrast/air between soft palate and pharyngeal wall Laryngeal Elevation: Partial superior movement thyroid cart/partial apprx aryt-epig petiole Anterior Hyoid Excursion: Partial anterior movement Epiglottic Movement: Partial inversion Laryngeal Vestibule Closure at Height of Swallow: Incomplete; narrow column of air/contrast in laryngeal vestibule Pharyngeal Stripping Wave: Absent Pharyngoesophageal Segment Opening: Minimal distension and minimal duration; marked obstruction of flow Tongue Base Retraction: Wide column of contrast between tongue base & post. pharyngeal wall Pharyngeal Residue: Majority of contrast within or on pharyngeal structures - Treatment Strategies Effects of treatment strategies attemped:: Super-supraglottic swallow = not effective. Chin tuck = not effective. Multiple swallows = somewhat effective. Decreased bolus size = effective. - Diagnosis/Impression Diagnosis: Severe oropharyngeal dysphagia (R13.12) Impression: The oral phase is primarily marked by decreased bolus control due to decreased lingual coordination and strength resulting in premature posterior loss of bolus prior to swallow onset. The patient also has decreased mastication and presented with what appeared to be portions of unchewed cookie bolus in the vallecula after the swallow. He had mild oral residues observed after the swallow. The pharyngeal phase is primarily marked by decreased pharyngeal contraction, hyolaryngeal elevation and excursion, and UES opening/duration resulting in decreased airway closure and severe pharyngeal residues in the vallecula and pyriform sinuses after the swallow. The patient demonstrated aspiration of the initial teaspoon sip of thin liquids before and during the swallow with a weak, delayed, and ineffective cough reflex. The patient frequently demonstrated penetration of various consistencies when completing subsequent swallows to clear pharyngeal residues. Unable to determine if penetration of various consistencies fully ejected from the airway during the study, as the patient was unable to consistently clear contrast from the laryngeal vestibule, vocal folds, and airway with use of coughs and re-swallows. Could not rule out post prandial aspiration of thin, nectar, honey, and pudding thick residues. - Recommendations Diet: Puree Textures, Thin Liquids Compensatory Strategies: Small Bites, Small Sips, Liquid by Teaspoon Only - 1/2 Teaspoon sips, Multiple Swallows - At least 3 effortful swallows per each sip/bite, Alternate bites/solids and sips/liquids, Sitting upright, Remain sitting upright for 30 minutes after PO intake, Assist with verbal cues to use recommended strategies Supervision: Assist as needed Recommend Repeat Modified Barium Swallow: Yes - Would recommend repeat MBS study in 6-8 weeks. Need for Skilled Speech Therapy Services: Yes Comment: Patient requires intensive skilled speech-language intervention targeting ? continued diet texture management and preparation training ? training and implementation of recommended compensatory strategies - the patient may benefit from use of bolus control cup to maintain small sip size. ? training and implementation of recommended oropharyngeal strengthening exercises to facilitate improved lingual control / strength, swallow onset timing, hyolaryngeal elevation, pharyngeal motility, and UES opening/duration. Would consider patient for oropharyngeal strengthening in junction with neuromuscular electrical stimulation (NMES) / VitalStim. Would additionally consider training, implementation, and patient education regarding implementation of a modified FFWP consuming small sips by cup with use of multiple, effortful swallows at least 30-60 minutes following a meal to encourage improved hydration throughout his day. Recommended Referrals: GI Consult - Severe pharyngeal residues likely a result of poor opening/duration of the UES during the swallow., Dietitian Consult - Concerns for patient's ability to get sufficient caloric intake and nutrition by mouth given the severity of the patient's dysphagia and recent 30 pound weight loss. Education Completed: 1. Described result of evaluation., 4. Family/caregivers understand evaluation & agree w/ goals & tx plan. - Spoke with patient's , Gabriella, on the phone to review results of MBS study and recommendations., 7. Pt requires further education on strategies & risks. - Status Active ST Patient: Active - Contact Information [facility] Speech Therapy:: Jocy Kaye M.A., [facility] PROCESS EXTRACTOR OPERATOR Speech Language Pathologist [facility] [address] [place] [address] [email or web address] [phone]
== END ==
PROVIDERS: PCP Family Medicine; Referring Provider Family Medicine; Visit Provider Family Medicine
DX: R13.11 Dysphagia, oral phase (principal)
CPT/HCPCS: 74230; 92611

== ENCOUNTER 2020-11-08 18:03 | Inpatient (IN) | payer MEDICARE, SELFPAY ==
[2020-10-25 06:03] VITALS: BMI 24.0
--- NOTE | 2020-11-08 | CT_ITS ---
STUDY: CT BRAIN WITHOUT CONTRAST REASON FOR EXAM: Male, 85 years old. trauma RADIATION DOSAGE (If Supplied By Facility): CTDIvol = ( 44.99 ) mGy, DLP = ( 779.24 ) mGycm TECHNIQUE: Transaxial CT imaging of the brain was performed without administration of intravenous contrast material. Individualized dose optimization techniques were used for this CT. COMPARISON: 11/01/2019. FINDINGS: Normal soft tissue structures. Normal calvarium. Calcific plaquing of the cavernous carotids. Mild atrophy and periventricular white matter ischemic changes.. Normal basal ganglia and thalami. Normal brainstem. Normal cerebellum. There is no intracranial hemorrhage. There are no findings of an acute ischemic infarction. Postsurgical changes of the orbits. Normal visualized paranasal sinuses. CT/Brain/Head without Contrast IMPRESSION: Mild atrophy and periventricular white matter ischemic changes.. No evidence for acute intracranial bleed Electronically Signed: Lars Simmons MD at 20:21 EDT , Service support ,
[2020-11-08 18:04] VITALS: BP 165/78; PULSE 48; RESP 16; TEMP 38.7; O2SAT 94; BMI 26.4
--- NOTE | 2020-11-08 18:21 | EKG12_ITS ---
Test Reason : FALL Blood Pressure : / mmHG Vent. Rate : 114 BPM Atrial Rate : 114 BPM P-R Int : 160 ms QRS Dur : 076 ms QT Int : 330 ms P-R-T Axes : 059 029 046 degrees QTc Int : 454 ms Sinus tachycardia with frequent Premature ventricular complexes Otherwise normal ECG Confirmed by ANGELLA BERG, STEVE ([id number]), editor news JANETT AMBRIZ ([id number]) on 11/11/2020 10:01:20 AM Referred By: HEYDI Confirmed By:STEVE PERALES MD
--- NOTE | 2020-11-08 18:26 | EDS_ITS ---
HPI HPI - Fall History of Present Illness Chief Complaint: Fall Informant: patient Occured/Mechanism Occurred: Today Mechanism/Context: Yes same level fall Narrative: States he got out of the car and took a step backward, falling to the ground backwards Pain/Injury Pain Location: head and other (Tailbone) Quality of Pain: Aching Current Severity: Mild Maximum Severity: Mild Worsened by: Palpation Relieved by: Leaving alone Associated Symptoms Associated Symptoms: Negative for Parasthesias, Weakness, Loss of function, Inability to ambulate, Loss of consciousness and Amnesia Narrative Narrative: Patient states he took a step backwards and lost his balance falling to the ground. No systemic symptoms or prodromal symptoms. This is his third fall in several weeks/months. He and his state we should never have gotten our Covid vaccines back in June, this is all clearly related. He has had a cough lately, he was scheduled for a swallow evaluation for the possibility of aspiration. He denies any dyspnea, fevers at home although he has when here in triage, trouble urinating, or change in his cough recently, which waxes and wanes. [facility] Medical History Abnormal EKG Anemia Atrial fibrillation Cat bite Chronic steroid use CRF (chronic renal failure) Elevated serum creatinine Essential hypertension GERD (gastroesophageal reflux disease) History of esophageal stricture History of thyroid cancer Hyperglycemia Hypothyroidism Osteoarthritis PAC (premature atrial contraction) Sarcoid arthropathy Sarcoidosis Sarcoidosis of lung Home Medications famotidine 20 mg tablet 40 mg PO DAILY tab 04/12/20 [History Last Taken Unknown] levothyroxine 200 mcg tablet 200 mcg PO DAILY 04/12/20 [History Last Taken Unknown] oxycodone 5 mg capsule 5 mg PO BID PRN 04/12/20 [History Last Taken Unknown] pantoprazole 40 mg tablet,delayed release 40 mg PO DAILY 04/12/20 [History Last Taken Unknown] apixaban 2.5 mg tablet 2.5 mg PO BID 09/20/20 [History Last Taken Unknown] furosemide 20 mg tablet 20 mg PO DAILY PRN 09/20/20 [History Last Taken Unknown] metoprolol succinate 25 mg tablet,extended release 24 hr 25 mg PO BID 09/20/20 [History Last Taken Unknown] oxybutynin chloride 5 mg tablet 5 mg PO BID tab 09/20/20 [History Last Taken Unknown] azithromycin 250 mg PO QHS #4 tablet 11/08/20 [Rx Last Taken Unknown] Allergy/AdvReac Type Severity Reaction Status Date / Time No Known Allergies Allergy Verified 11/08/20 18:04 Family History Other CVA (cerebral vascular accident) Surgical History History of spinal surgery History of thyroidectomy S/P TURP (status post transurethral resection of prostate) Social History Smoking Status: Never smoker alcohol intake: current details: occasional substance use type: does not use caffeine: Yes Type: coffee Number of servings: 4 ROS ROS ED Constitutional Constitutional ED: Denies chills or fever(s) Eyes Eyes: Denies change in vision or diplopia ENT ENT ED: Denies rhinorrhea or sore throat Cardiovascular Cardiovascular: Denies chest pain or palpitations Respiratory/Chest Respiratory/Chest: Reports as per HPI, cough and other Details: 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 ; Denies dyspnea Gastrointestinal Gastrointestinal: Denies abdominal pain, diarrhea, nausea or vomiting Genitourinary Genitourinary ED: Denies dysuria or hematuria Musculoskeletal Musculoskeletal: Reports back pain; Denies neck pain Integumentary Reports laceration; Denies abscess or rash Neurologic Neurologic: Reports headache(s); Denies paresthesias or weakness Psychiatric Psychiatric: Denies anxiety or suicidal thoughts EXAM Physical Exam Const Vital Signs: 11/08/20 18:04 11/08/20 18:11 Temperature 101.6 F H Temperature Source Oral Pulse Rate 48 L Respiratory Rate 16 Respiratory Effort Normal Respiratory Depth Normal Respiratory Pattern Normal Blood Pressure 165/78 H Blood Pressure Mean 107 Pulse Ox 94 Oxygen Delivery Method Room Air Room Air Positive well nourished and well developed General Appearance ED: well developed and NAD HEENT Reports moist mucous membranes normocephalic and atraumatic Eyes PERRL and EOMs intact bilaterally Neck full ROM and supple General: Negative for tenderness Resp normal respiratory effort and clear to auscultation bilaterally Cardio regular rate, regular rhythm and no murmurs Cardio Narrative: Occasional irregularity in rhythm GI non-tender and non-distended Auscultation: normoactive bowel sounds Palpation: soft Back/Spine no CVA tenderness Back/Spine Narrative: Mildly tender at coccyx without deformity or bleeding, no other midline spinal tenderness General Back: other FROM Extremity normal to inspection General Extremety ED: Negative for edema, pulses abnormal or tenderness General Extremity: Negative for edema or pulses abnormal Neuro oriented x3, CN's II-XII intact bilaterally and no sensory deficits noted Tamera Coma Scale: document GCS findings Spontaneous Obeys Commands Oriented 15 Sensorium / Orientation: awake and alert Motor Exam: strength 5/5 throughout Skin no rashes or lesions noted and no wounds Skin Narrative: 5 cm full-thickness irregular, stellate laceration left occipital scalp without crepitance or depression MDM MDM MDM Narrative Medical decision making narrative: From an injury standpoint, CT head and neck are unremarkable, x-ray of his coccyx and sacrum were also unremarkable. His chest x-ray shows a left lower lobe infiltrate, this may explain his fever and minor cough. He is not hypoxic, and feeling relatively well and not acutely dyspneic. His temperature was treated with Tylenol, he was started on antibiotics Rocephin and Zithromax. He meets criteria for sepsis, however he feels well, is not hypoxic, is not dyspneic at rest, and although I offered admission does not want to stay. He will be prescribed Zithromax to finish the course, advised to follow-up with his doctor in 5 days for reevaluation of his pneumonia, vital signs, and his wound to have tiana possibly removed. Lab Data Attestation: I reviewed the patient's lab results. Labs: Laboratory Results - last 24 hr 11/08/20 11/08/20 11/08/20 18:55 18:55 18:55 WBC 17.0 H RBC 3.71 L Hgb 10.7 L Hct 33.6 L MCV 90.6 MCH 28.8 MCHC 31.8 L RDW Std Deviation 50.1 H RDW Coeff of Juan 15.2 H Plt Count 449 MPV 8.7 Immature Gran % (Auto) 2.600 H Neut % (Auto) 68.7 Lymph % (Auto) 16.8 L [place] % (Auto) 10.8 H Eos % (Auto) 0.6 Baso % (Auto) 0.5 Absolute Neuts (auto) 11.7 H Absolute Lymphs (auto) 2.86 Nucleated RBC % 0 Differential Comment Diff Path Review May foll Sodium 138 Potassium 4.0 Chloride 103 Carbon Dioxide 29.0 Anion Gap 6 BUN 22 H Creatinine 1.28 Estim Creat Clear Calc 39.45 Est GFR (MDRD) Af Amer 69 Est GFR (MDRD) Non-Af 57 L BUN/Creatinine Ratio 17.2 Glucose 118 H Lactic Acid 1.1 Calcium 8.3 L Troponin I High Sens 23.3 Urine Color Urine Clarity Urine pH Ur Specific [place] Urine Protein Urine Glucose (UA) Urine Ketones Urine Occult Blood Urine Nitrite Urine Bilirubin Urine Urobilinogen Ur Leukocyte Esterase Urine RBC Urine WBC Ur Squamous Epith Cells Urine Bacteria Urine Mucus 11/08/20 19:40 WBC RBC Hgb Hct MCV MCH MCHC RDW Std Deviation RDW Coeff of Juan Plt Count MPV Immature Gran % (Auto) Neut % (Auto) Lymph % (Auto) [place] % (Auto) Eos % (Auto) Baso % (Auto) Absolute Neuts (auto) Absolute Lymphs (auto) Nucleated RBC % Differential Comment Diff Path Review Sodium Potassium Chloride Carbon Dioxide Anion Gap BUN Creatinine Estim Creat Clear Calc Est GFR (MDRD) Af Amer Est GFR (MDRD) Non-Af BUN/Creatinine Ratio Glucose Lactic Acid Calcium Troponin I High Sens Urine Color Yellow Urine Clarity Clear Urine pH 5.0 Ur Specific [place] 1.010 Urine Protein 15 H Urine Glucose (UA) Normal Urine Ketones Negative Urine Occult Blood Negative Urine Nitrite Negative Urine Bilirubin Negative Urine Urobilinogen Normal Ur Leukocyte Esterase 25 H Urine RBC 0 SEEN Urine WBC 0-5 SEEN Ur Squamous Epith Cells 0 SEEN Urine Bacteria 0 SEEN Urine Mucus 0 SEEN Radiography Diagnostic Testing: Radiology Impression Brain CT 11/08/20 00:00 IMPRESSION: Mild atrophy and periventricular white matter ischemic changes.. No evidence for acute intracranial bleed Electronically Signed: Lars Simmons MD at 20:21 EDT , Service support , Sacrum and Coccyx X-Ray 11/08/20 18:26 IMPRESSION: Normal x-rays of the sacrum and coccyx. Electronically Signed: Lars Simmons MD at 20:31 EDT , Service support , Cervical Spine CT 11/08/20 19:06 IMPRESSION: No evidence for acute fracture or other significant bony pathology. Status post multilevel laminectomy and posterior fusion. Electronically Signed: Lars Simmons MD at 20:27 EDT , Service support , Chest X-Ray 11/08/20 19:20 IMPRESSION: Left lower lobe pneumonic infiltrate Electronically Signed: Lars Simmons MD at 20:31 EDT , Service support , EKG Initial EKG: Attestation: I personally reviewed and interpreted this EKG as follows: Interpretation: No Acute Injury Pattern and Sinus Tachycardia Comments: Frequent PVCs Procedures Lacerations Occipital scalp: Length: 5 cm Depth: Sub Q (Down to but not involving galea) Shape: Stellate Prep: Sterile Conditions and Chlorhexadine Laceration repair: Lidocaine with epi (4 cc) and Local Irrigated (ml): 50 Number of Sutures/Tiana: 7 Suture Information: - (Skin tiana) Discharge Plan Triage Chief Complaint: Fall ED Provider: Solis Holcomb Dx/Rx/DC Orders Clinical Impression: Sepsis due to pneumonia, Accidental fall, Closed head injury without loss of consciousness, Occipital scalp laceration, Coccygeal contusion Instructions: ED Head Injury (Adult), ED Laceration Scalp Stitches or [place], ED Pneumonia (Adult) Prescriptions: New azithromycin [azithromycin] 250 MG tablet 250 mg PO QHS Qty: 4 RF: 0 No Action levothyroxine 200 mcg tablet 200 mcg PO DAILY RF: 0 pantoprazole 40 mg tablet,delayed release (DR/EC) 40 mg PO DAILY RF: 0 famotidine 20 mg tablet 40 mg PO DAILY RF: 0 oxycodone 5 mg capsule 5 mg PO BID PRNRF: 0 furosemide 20 mg tablet 20 mg PO DAILY PRN (Reason: edema) RF: 0 oxybutynin chloride 5 mg tablet 5 mg PO BID RF: 0 Eliquis 2.5 mg tablet 2.5 mg PO BID RF: 0 metoprolol succinate 25 mg tablet extended release 24 hr 25 mg PO BID RF: 0 Primary Care Provider: Angeline Batista Referrals: Angeline Batista MD [Primary Care Provider] - 5 Days for suture removal Disposition Disposition: Home, Self Care
--- NOTE | 2020-11-08 18:26 | RAD_ITS ---
STUDY: X-RAY - SACRUM/COCCYX REASON FOR EXAM: Male, 85 years old. fall/injury TECHNIQUE: 4 view(s) of the sacrum and coccyx were obtained. COMPARISON: None. FINDINGS: Normal bilateral sacroiliac joints. Normal visualized sacral ala and fused sacral bodies. Normal sacrococcygeal junction with a normal angulation. Normal coccygeal segments. The presacral soft tissue structures are unremarkable. RAD/Sacrum-Coccyx min 2 Views IMPRESSION: Normal x-rays of the sacrum and coccyx. Electronically Signed: Lars Simmons MD at 20:31 EDT , Service support ,
[2020-11-08] MEDS: Acetaminophen 325 MG Tablet 650 MG PO (18:43)
[2020-11-08] MEDS: Lidocaine/Epi/Tetracaine 50 ML 1 APPLIC TOPICAL (18:51)
[2020-11-08 19:05] LABS: Absolute Lymphocyte Count 2.86 X10^3/uL (0.83-4.51); Absolute Neutrophil Count 11.7 X10^3/uL (2.0-7.7); Basophil# 0.09 X10^3/uL; Basophil% 0.5 % (0-1); Eosinophils% 0.6 % (0-5); Hematocrit 33.6 % (40-54); Hemoglobin 10.7 g/dL (13.0-16.5); Lymphocyte # 2.86 X10^3/ul (0.83-4.51); Lymphocyte % 16.8 % (19-41); Mean Corp Hgb Conc 31.8 g/dL (32-36); Mean Corpuscular Hgb 28.8 pg (27.0-32.0); Mean Corpuscular Volume 90.6 fL (80-94); Mean Platelet Vol. 8.7 fl (6.2-12.0); Monocyte# 1.84 X10^3/uL; Monocyte% 10.8 % (0-10); NRBC Flagged by Analyzer 0 % (0-5); Neutrophil # 11.65 X10^3/uL (2.7-7.7); Neutrophil % 68.7 % (47-70); POSITIVE DIFFERENTIAL YES; Platelet Count 449 K/mm3 (150-450); RBC Distribution Width CV 15.2 % (11.6-14.6); RBC Distribution Width SD 50.1 fl (35.1-43.9); Red Blood Count 3.71 M/mm3 (4.6-6.2)
--- NOTE | 2020-11-08 19:06 | CT_ITS ---
STUDY: CT CERVICAL SPINE WITHOUT CONTRAST REASON FOR EXAM: Male, 85 years old. fall RADIATION DOSAGE (If Supplied By Facility): CTDIvol = ( 16.30 ) mGy, DLP = ( 348.85 ) mGycm TECHNIQUE: High resolution transaxial imaging was performed without contrast material. Sagittal and coronal images were reconstructed. Individualized dose optimization techniques were used for this CT. COMPARISON: 11/01/2019 FINDINGS: Normal craniovertebral junction. Normal anterior atlantoaxial articulation. Normal odontoid process. 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 Decreased cervical lordosis. Normal vertebral bodies and posterior osseous elements. C2-3: Normal endplates. Normal disc height and morphology. Normal central canal and intervertebral neuroforamina. C3-4: Normal endplates. Normal disc height and morphology. Normal central canal and intervertebral neuroforamina. C4-5: Normal endplates. Normal disc height and morphology. Mild central canal stenosis secondary to posterior longitudinal ligament ossification. Normal bilateral intervertebral neuroforamina. C5-6: Normal endplates. Normal disc height and morphology. Mild central canal stenosis secondary to ossification of posterior longitudinal ligament. Mild bilateral neuroforaminal encroachment secondary to bony hypertrophy. C6-7: Normal endplates. Normal disc height and morphology. Normal central canal. Minor bilateral neuroforaminal encroachment secondary to bony hypertrophy C7-T1: Mild endplate spurring.. Normal disc height and morphology. Normal central canal and intervertebral neuroforamina. Normal visualized soft tissue structures. CT/Spine Cervical without Contras IMPRESSION: No evidence for acute fracture or other significant bony pathology. Status post multilevel laminectomy and posterior fusion. Electronically Signed: Lars Simmons MD at 20:27 EDT , Service support ,
--- NOTE | 2020-11-08 19:20 | RAD_ITS ---
STUDY: X-RAY CHEST REASON FOR EXAM: Male, 85 years old. cough, fever TECHNIQUE: AP portable COMPARISON: 10/25/2020 FINDINGS: Elevated right hemidiaphragm and mild basilar atelectasis. Focal atelectasis or infiltrate in left lower lobe.. There is no demonstrated pleural abnormality. Normal size heart. Normal mediastinum and maurisio. Normal visualized pulmonary arteries. Mildly calcified aortic arch and descending thoracic aorta. Dorsal spine and shoulders demonstrate degenerative change Normal visualized ribs and, clavicles. Residual contrast noted within the transverse colon.. RAD/Chest 1 View (Portable) IMPRESSION: Left lower lobe pneumonic infiltrate Electronically Signed: Lars Simmons MD at 20:31 EDT , Service support ,
[2020-11-08 19:41] LABS: Lactic Acid 1.1 mmol/L (0.4-1.9)
[2020-11-08 19:43] LABS: Anion Gap 6 (5-15); BUN 22 mg/dL (7-18); BUN/Creat Ratio 17.2 RATIO (10-20); Calcium,Total 8.3 mg/dL (8.5-10.1); Chloride 103 mmol/L (98-107); Creatinine, Serum 1.28 mg/dL (0.70-1.30); EST Glomerular Filtration Rate 57 mL/min (>60); Est Glom Filt Rate - Afr Amer 69 mL/min (>60); Estimated Creatinine Clearance 39.45 ml/min; Glucose 118 mg/dL (74-106); Sodium Level 138 mmol/L (136-145); Troponin-I HS 23.3 pg/mL (3.0-78.5)
[2020-11-08 19:45] LABS: Bacteria 0 SEEN /hpf (None Seen); Mucous, Urine 0 SEEN /hpf (<or=2+); Red Blood Cells-Urine 0 SEEN /hpf (0-5); Squamous Epithelial Cells - UA 0 SEEN /hpf (0-5)
[2020-11-08 19:55] LABS: Differential Indicated SCAN CRITERIA MET
[2020-11-08 20:01] LABS: Color, Urine Yellow (Yellow); Glucose, Dipstick Normal (Normal); Ketone-Dipstick Negative (Negative); Leukocyte Esterase-Dipstick 25 /ul (Negative); Nitrite-Dipstick Negative (Negative); Occult Blood-Urine Negative /ul (Negative); Protein-Dipstick 15 mg/dl (Negative); Urine Bilirubin Dipstick Negative (Negative); Urine Clarity Clear (Clear); Urine Urobilinogen Normal (Normal)
[2020-11-08 20:11] LABS: White Blood Cells 0-5 SEEN /hpf (0-5)
[2020-11-08] MEDS: Lidocaine 1% /Epi 1:100 (50ml) 50 ML VIAL INFILT (22:34)
[2020-11-08 22:36] VITALS: BP 158/68; PULSE 73; RESP 18; O2SAT 96
[2020-11-08 23:07] VITALS: BP 161/80; PULSE 81; RESP 17; TEMP 37.2; O2SAT 96
--- NOTE | 2020-11-08 23:18 | HP.PCM.HOS_ITS ---
HPI - General General Date of Admission: 11/08/20 HPI Narrative DEMETRIUS BURNS, is a 85 M with a significant history of hypertension; atrial fibrillation and Sarcoidosis who presents to the emergency department with fall. Patient got up from the car and he fell backwards hitting and injuring his head. His head was stapled at the emergency department. Also patient reports a chronic cough and chronic shortness of breath. At the emergency part the patient was found to have a fever; leukocytosis and abnormal chest x-ray. The plan was to discharge patient home. However patient was too weak to stand and a decision was made to admit patient. [facility] Medical History Abnormal EKG Anemia Atrial fibrillation Cat bite Chronic steroid use CRF (chronic renal failure) Elevated serum creatinine Essential hypertension GERD (gastroesophageal reflux disease) History of esophageal stricture History of thyroid cancer Hyperglycemia Hypothyroidism Osteoarthritis PAC (premature atrial contraction) Sarcoid arthropathy Sarcoidosis Sarcoidosis of lung Home Medications famotidine 20 mg tablet 40 mg PO DAILY tab 04/12/20 [History Last Taken Unknown] levothyroxine 200 mcg tablet 200 mcg PO DAILY 04/12/20 [History Last Taken Unknown] oxycodone 5 mg capsule 5 mg PO BID PRN 04/12/20 [History Last Taken Unknown] pantoprazole 40 mg tablet,delayed release 40 mg PO DAILY 04/12/20 [History Last Taken Unknown] apixaban 2.5 mg tablet 2.5 mg PO BID 09/20/20 [History Last Taken Unknown] furosemide 20 mg tablet 20 mg PO DAILY PRN 09/20/20 [History Last Taken Unknown] metoprolol succinate 25 mg tablet,extended release 24 hr 25 mg PO BID 09/20/20 [History Last Taken Unknown] oxybutynin chloride 5 mg tablet 5 mg PO BID tab 09/20/20 [History Last Taken Unknown] azithromycin 250 mg PO QHS #4 tablet 11/08/20 [Rx Last Taken Unknown] Allergy/AdvReac Type Severity Reaction Status Date / Time No Known Allergies Allergy Verified 11/08/20 18:04 Family History Other CVA (cerebral vascular accident) Surgical History History of spinal surgery History of thyroidectomy S/P TURP (status post transurethral resection of prostate) Social History Smoking Status: Never smoker alcohol intake: current details: occasional substance use type: does not use caffeine: Yes Type: coffee Number of servings: 4 ROS ROS Narrative 12 point review of system is negative except as stated in HPI. Vital Signs Vital Signs Vital Signs: 11/08/20 18:04 11/08/20 18:11 11/08/20 22:36 Temperature 101.6 F H Temperature Source Oral Pulse Rate 48 L 73 Respiratory Rate 16 18 Respiratory Effort Normal Respiratory Depth Normal Respiratory Pattern Normal Blood Pressure 165/78 H 158/68 H Blood Pressure Mean 107 98 Pulse Ox 94 96 Oxygen Delivery Method Room Air Room Air Room Air 11/08/20 23:07 Temperature 99 F Temperature Source Oral Pulse Rate 81 Respiratory Rate 17 Respiratory Effort Respiratory Depth Respiratory Pattern Blood Pressure 161/80 H Blood Pressure Mean 107 Pulse Ox 96 Oxygen Delivery Method Room Air Weight Weight: 76.5 kg Body Mass Index (BMI) 26.4 Physical Exam Narrative Physical exam: General: Well-nourished, well-developed, no acute distress Head: Normocephalic, stapled parietal area Eyes: PERRLA, EOMI ENT, no trauma, moist mucous membranes, no rhinorrhea Neck: Nontender, full range of motion, no spinal tenderness, deformities, step- off CVS: Regular rate and rhythm Respiratory no acute distress, clear to auscultation bilaterally, chest wall n ontender, no wheezing Abdomen: Soft, nontender, nondistended, normal bowel sounds, no masses : Deferred Extremities: Nontender full range of motion, no trauma. 3+ bilateral leg edema. Skin: Normal color, no trauma, abrasions Neuro: Alert, oriented, cranial nerves II through XII grossly intact. Results Lab / Micro Data Result Diagrams: 11/08/20 18:55 11/08/20 18:55 Labs: Laboratory Results - last 24 hr 11/08/20 18:55: WBC 17.0 H, RBC 3.71 L, Hgb 10.7 L, Hct 33.6 L, MCV 90.6, MCH 28.8, MCHC 31.8 L, RDW Std Deviation 50.1 H, RDW Coeff of Juan 15.2 H, Plt Count 449, MPV 8.7, Immature Gran % (Auto) 2.600 H, Neut % (Auto) 68.7, Lymph % (Auto) 16.8 L, [place] % (Auto) 10.8 H, Eos % (Auto) 0.6, Baso % (Auto) 0.5, Absolute Neuts (auto) 11.7 H, Absolute Lymphs (auto) 2.86, Nucleated RBC % 0, Differential Comment , Diff Path Review August11/08/20 18:55: Sodium 138, Potassium 4.0, Chloride 103, Carbon Dioxide 29.0, Anion Gap 6, BUN 22 H, Creatinine 1.28, Estim Creat Clear Calc 39.45, Est GFR (MDRD) Af Amer 69, Est GFR (MDRD) Non-Af 57 L, BUN/Creatinine Ratio 17.2, Glucose 118 H, Calcium 8.3 L, Troponin I High Sens 23.3 11/08/20 18:55: Lactic Acid 1.1 11/08/20 19:40: Urine Color Yellow, Urine Clarity Clear, Urine pH 5.0, Ur Specific [place] 1.010, Urine Protein 15 H, Urine Glucose (UA) Normal, Urine Ketones Negative, Urine Occult Blood Negative, Urine Nitrite Negative, Urine Bilirubin Negative, Urine Urobilinogen Normal, Ur Leukocyte Esterase 25 H, Urine RBC 0 SEEN, Urine WBC 0-5 SEEN, Ur Squamous Epith Cells 0 SEEN, Urine Bacteria 0 SEEN, Urine Mucus 0 SEEN Radiology Impression Brain CT 11/08/20 00:00 IMPRESSION: Mild atrophy and periventricular white matter ischemic changes.. No evidence for acute intracranial bleed Electronically Signed: Lars Simmons MD at 20:21 EDT , Service support , Sacrum and Coccyx X-Ray 11/08/20 18:26 IMPRESSION: Normal x-rays of the sacrum and coccyx. Electronically Signed: Lars Simmons MD at 20:31 EDT , Service support , Cervical Spine CT 11/08/20 19:06 IMPRESSION: No evidence for acute fracture or other significant bony pathology. Status post multilevel laminectomy and posterior fusion. Electronically Signed: Lars Simmons MD at 20:27 EDT , Service support , Chest X-Ray 11/08/20 19:20 IMPRESSION: Left lower lobe pneumonic infiltrate Electronically Signed: Lars Simmons MD at 20:31 EDT , Service support , Assessment & Plan Assessment/Plan (1) Sepsis due to pneumonia: (2) Accidental fall: QUALIFIERS: Encounter type: initial encounter Qualified Code(s): W19.XXXA - Unspecified fall, initial encounter (3) Debility: PLAN: Sepsis secondary pneumonia Gram-positive or gram-negative. SIRS criteria: Temperature of 101.6 Fahrenheit; white count of 17.0 with 2.6% bandemia. Review of records show that on 10/25/2020 his white count was 14.5 and with a 2.3% bandemia. Impression of chest x-ray by radiology: Left lower lobe pneumonic infiltrate. Actual chest x-ray image independently visualized and compared to previous was not remarkable. Will check procalcitonin. Lactic acid: 1.1 Blood culture ?2 is pending; follow. Urinalysis was unrevealing. Antibiotics: Received ceftriaxone and azithromycin in the emergency department and continued. Albuterol as needed Legionella antigen screen and Strep antigen ordered CBC and BMP ordered. Accidental fall/debility Cervical spine CT with no acute abnormality. Sacrum and coccyx x-ray: No acute abnormality. Patient has no remember his last tetanus shot. Tdap ordered. PT and OT to work with patient. Atrial fibrillation Stable Eliquis continued. Bilateral lower extremity swelling Patient is on home Lasix as needed. Home Lasix ordered. Supplement potassium. DVT prophylaxis: Not indicated since patient is on Eliquis. Charges/Coding Multi Select Codes Visit Charges Visit Charges: 96942 Init Hosp L3
[2020-11-09] VITALS (14 sets, daily range): BP systolic 111–145; BP diastolic 53–111; PULSE 95–114; RESP 16–18; TEMP 36.9–37.3; O2SAT 95–100; BMI 24.0
--- NOTE | 2020-11-09 01:17 | NURSING ---
Pt had Covid vaccine at [facility], doesn't remember which vaccine but think he had it done in July. can bring it in.
[2020-11-09] MEDS: oxyCODONE 5 MG Tablet PO ×3 (01:37→22:41)
[2020-11-09] MEDS: Diphth,Pertuss(Acell),Tet Vac 0.5 ML Vial IM (03:15)
[2020-11-09] MEDS: Levothyroxine 100 MCG Tablet 200 MCG PO (05:07)
[2020-11-09] MEDS: Senna/Docusate Sodium 1 Tablet 2 TABLET PO (05:07)
--- NOTE | 2020-11-09 06:34 | NURSING ---
Lab called floor to make RN aware that when data transcriber was drawing pt's AM labs the CBC was not able to be collected with the first stick. Pt refused a second attempt. Notified Hospitalist, aware of situation.
[2020-11-09 06:50] LABS: Anion Gap 6 (5-15); BUN 19 mg/dL (7-18); BUN/Creat Ratio 16.1 RATIO (10-20); Calcium,Total 8.1 mg/dL (8.5-10.1); Chloride 104 mmol/L (98-107); Creatinine, Serum 1.18 mg/dL (0.70-1.30); EST Glomerular Filtration Rate 62 mL/min (>60); Est Glom Filt Rate - Afr Amer 75 mL/min (>60); Glucose 114 mg/dL (74-106); Potassium 4.1 mmol/L (3.5-5.1); Sodium Level 135 mmol/L (136-145)
[2020-11-09] MEDS: Acetaminophen 325 MG Tablet 650 MG PO ×2 (07:52→20:27)
[2020-11-09] MEDS: Potassium Chloride Oral Tablet 10 MEQ PO (08:27)
[2020-11-09 08:37] LABS: Procalcitonin 0.19 ng/mL (0.00-0.09)
[2020-11-09] MEDS: guaiFENesin 1,200 MG Tablet 1200 MG PO ×2 (09:18→21:20)
[2020-11-09] MEDS: Furosemide 20 MG Tablet PO (09:18)
[2020-11-09] MEDS: Metoprolol(XL)Succ 25 MG Tablet PO ×2 (09:18→21:20)
[2020-11-09] MEDS: Famotidine 20 MG Tablet 40 MG PO (09:18)
[2020-11-09] MEDS: Oxybutynin 5 MG Tablet PO ×2 (09:18→21:20)
[2020-11-09] MEDS: APIXABAN 2.5 MG TABLET PO ×2 (09:18→21:20)
--- NOTE | 2020-11-09 09:20 | PCM.PN.HOSP ---
Subjective Subjective Patient was seen and made. He complains of feeling sore. He admits to a syncopal episode prior to fall. History of monitoring with Holter. EKG shows sinus tachycardia with PVCs. Objective Data Objective Data Vital Signs: Vital Signs Temp Pulse Resp BP Pulse Ox 98.9 F 98 16 134/53 H 96 11/09/20 05:10 11/09/20 05:10 11/09/20 05:10 11/09/20 05:10 11/09/20 05:10 Oxygen Delivery Method Room Air Weight: 69.3 kg Body Mass Index (BMI) 24.0 Intake & Output: Intake and Output for Last 24 Hours 11/07/20 11/08/20 11/09/20 23:59 23:59 23:59 Intake Total 50 / 50 555 / 555 Balance 50 555 / 555 Lab / Micro Data Result Diagrams: 11/08/20 18:55 11/09/20 05:48 Labs: Laboratory Results - last 24 hr 11/08/20 18:55: WBC 17.0 H, RBC 3.71 L, Hgb 10.7 L, Hct 33.6 L, MCV 90.6, MCH 28.8, MCHC 31.8 L, RDW Std Deviation 50.1 H, RDW Coeff of Juan 15.2 H, Plt Count 449, MPV 8.7, Immature Gran % (Auto) 2.600 H, Neut % (Auto) 68.7, Lymph % (Auto) 16.8 L, [place] % (Auto) 10.8 H, Eos % (Auto) 0.6, Baso % (Auto) 0.5, Absolute Neuts (auto) 11.7 H, Absolute Lymphs (auto) 2.86, Nucleated RBC % 0, Differential Comment , Diff Path Review August11/08/20 18:55: Sodium 138, Potassium 4.0, Chloride 103, Carbon Dioxide 29.0, Anion Gap 6, BUN 22 H, Creatinine 1.28, Estim Creat Clear Calc 39.45, Est GFR (MDRD) Af Amer 69, Est GFR (MDRD) Non-Af 57 L, BUN/Creatinine Ratio 17.2, Glucose 118 H, Calcium 8.3 L, Troponin I High Sens 23.3 11/08/20 18:55: Lactic Acid 1.1 11/08/20 19:40: Urine Color Yellow, Urine Clarity Clear, Urine pH 5.0, Ur Specific [place] 1.010, Urine Protein 15 H, Urine Glucose (UA) Normal, Urine Ketones Negative, Urine Occult Blood Negative, Urine Nitrite Negative, Urine Bilirubin Negative, Urine Urobilinogen Normal, Ur Leukocyte Esterase 25 H, Urine RBC 0 SEEN, Urine WBC 0-5 SEEN, Ur Squamous Epith Cells 0 SEEN, Urine Bacteria 0 SEEN, Urine Mucus 0 SEEN 11/09/20 05:48: Procalcitonin 0.19 H 11/09/20 05:48: Sodium 135 L, Potassium 4.1, Chloride 104, Carbon Dioxide 25.0, Anion Gap 6, BUN 19 H, Creatinine 1.18, Estim Creat Clear Calc 41.30, Est GFR (MDRD) Af Amer 75, Est GFR (MDRD) Non-Af 62, BUN/Creatinine Ratio 16.1, Glucose 114 H, Calcium 8.1 L Radiography Diagnostic Testing: Radiology Impression Brain CT 11/08/20 00:00 IMPRESSION: Mild atrophy and periventricular white matter ischemic changes.. No evidence for acute intracranial bleed Electronically Signed: Lars Simmons MD at 20:21 EDT , Service support , Sacrum and Coccyx X-Ray 11/08/20 18:26 IMPRESSION: Normal x-rays of the sacrum and coccyx. Electronically Signed: Lars Simmons MD at 20:31 EDT , Service support , Cervical Spine CT 11/08/20 19:06 IMPRESSION: No evidence for acute fracture or other significant bony pathology. Status post multilevel laminectomy and posterior fusion. Electronically Signed: Lars Simmons MD at 20:27 EDT , Service support , Chest X-Ray 11/08/20 19:20 IMPRESSION: Left lower lobe pneumonic infiltrate Electronically Signed: aLrs Simmons MD at 20:31 EDT , Service support , Physical Exam Narrative Physical exam: General: Alert, Oriented x3, Cooperative, No apparent distress, Well developed HEENT: Dressing over occiput Oral: Moist Mucosa Neck: Supple Lungs: Clear to auscultation Cardiovascular: HS I+II, regular, no murmurs Abdomen: Bowel Sounds Present, Soft, Non Tender Extremities: Bilateral leg edema +1 Assessment & Plan Assessment/Plan (1) Sepsis due to pneumonia: (2) Debility: (3) Coccygeal contusion: QUALIFIERS: Encounter type: subsequent encounter Qualified Code(s): S30.0XXD - Contusion of lower back and pelvis, subsequent encounter (4) Occipital scalp laceration: QUALIFIERS: Encounter type: subsequent encounter Qualified Code(s): S01.01XD - Laceration without foreign body of scalp, subsequent encounter (5) Closed head injury without loss of consciousness: QUALIFIERS: Encounter type: subsequent encounter Qualified Code(s): S09.90XD - Unspecified injury of head, subsequent encounter (6) Syncope: QUALIFIERS: Syncope type: unspecified Qualified Code(s): R55 - Syncope and collapse (7) Sarcoidosis of lung: (8) Essential hypertension: (9) Hypothyroidism: QUALIFIERS: Hypothyroidism type: postoperative Qualified Code(s): E89.0 - Postprocedural hypothyroidism PLAN: 1. 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 Sepsis secondary to pneumonia, continue on IV ceftriaxone and azithromycin 3. Hypomagnesemia, magnesium is 1.6, replaced 4. Debility, multifactorial, likely related to #2 and 3, PT and OT to evaluate and treat 5. Rest of chronic medical conditions remained stable including sarcoidosis, hypertension, paroxysmal atrial fibrillation, hypothyroidism Continue on apixaban, Charges/Coding Visit Charges Inpatient E&M: 70272 Subs Hosp L3
--- NOTE | 2020-11-09 09:38 | EKG12_ITS ---
Test Reason : NEAR SYCOPE Blood Pressure : / mmHG Vent. Rate : 116 BPM Atrial Rate : 116 BPM P-R Int : 164 ms QRS Dur : 076 ms QT Int : 316 ms P-R-T Axes : 057 040 070 degrees QTc Int : 439 ms Sinus tachycardia with Premature supraventricular complexes Otherwise normal ECG When compared with ECG of 08-NOV-2020 18:37, MANUAL COMPARISON REQUIRED, DATA IS UNCONFIRMED Confirmed by ESTHELA BERG, PATRICK ([id number]), international editorial producer JANETT AMBRIZ ([id number]) on 11/11/2020 10:26:13 AM Referred By: Confirmed By:PATRICK PROCTOR MD
--- NOTE | 2020-11-09 12:19 | CASEMGMT ---
CAROL MCCORMICK Assessment: Face to Face with pt for initial transition planning/care coordination assessment. RN JACE introduced self and role at [facility], pt voices understanding and consents to assessment. Pt is A/O x4 and answers all questions appropriately at this time. Pt sitting up in chair with lunch on side table. Pt had been napping. Care providers, pharmacy, and demographics verified/updated. 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 LNOK: Gabriella Burnette, Living Arrangements: Pt lives with in a two story apartment with no steps to enter. Pt states he is I in ADL's and denies concerns at home. Transportation: Pt does not drive but transports him to medical appts. DME/HHC/SNF: Pt has a cane at home. He is aware that therapy recommended a walker but he denies need for this. Pt denies previous HHC or SNF stays. Pt states he does not feel he needs any therapy at home. Discussed the option of therapy coming to the home. He declined. He is aware that should he get home and change his mind he can call to see about getting it ordered. He verbalized understanding. Pt states no concerns with going home at time of dc. Pt states no further concerns/needs. CM to follow. Advised pt to ask CM if any further question/concerns/needs arise, voices understanding. Pt Goal: Home Plan: Home with support.
[2020-11-09] MEDS: 0.9% Normal Saline 1,000 ML 75 ML IV (13:24)
[2020-11-09] MEDS: 0.9% Saline Lock 10 ML Syringe IV (13:25)
[2020-11-09 13:34] LABS: Magnesium 1.6 mg/dL (1.6-2.6)
[2020-11-09 13:49] LABS: Pathologist Review Reviewed
[2020-11-09] MEDS: Ceftriaxone 1 GM/50 ML BAG IV (21:06)
[2020-11-10] VITALS (10 sets, daily range): BP systolic 104–144; BP diastolic 52–73; PULSE 73–107; RESP 12–18; TEMP 36.9–37.2; O2SAT 93–98
[2020-11-10] MEDS: oxyCODONE 5 MG Tablet PO (05:01)
[2020-11-10] MEDS: Levothyroxine 100 MCG Tablet 200 MCG PO (05:01)
[2020-11-10 06:24] LABS: Absolute Lymphocyte Count 3.05 X10^3/uL (0.83-4.51); Basophil# 0.06 X10^3/uL; Basophil% 0.3 % (0-1); Eosinophils% 1.2 % (0-5); Hematocrit 33.3 % (40-54); Hemoglobin 10.6 g/dL (13.0-16.5); Lymphocyte # 3.05 X10^3/ul (0.83-4.51); Lymphocyte % 17.6 % (19-41); Mean Corp Hgb Conc 31.8 g/dL (32-36); Mean Platelet Vol. 9.2 fl (6.2-12.0); Monocyte# 1.69 X10^3/uL; Monocyte% 9.7 % (0-10); NRBC Flagged by Analyzer 0 % (0-5); Neutrophil # 11.96 X10^3/uL (2.7-7.7); POSITIVE DIFFERENTIAL YES; Platelet Count 455 K/mm3 (150-450); RBC Distribution Width CV 15.1 % (11.6-14.6); RBC Distribution Width SD 50.4 fl (35.1-43.9); Red Blood Count 3.66 M/mm3 (4.6-6.2); White Blood Count 17.4 K/mm3 (4.4-11.0)
[2020-11-10 06:31] LABS: Differential Indicated SCAN CRITERIA MET
[2020-11-10 06:55] LABS: Differential Comment SCANNED
[2020-11-10 07:07] LABS: BUN 26 mg/dL (7-18); Creatinine, Serum 1.38 mg/dL (0.70-1.30); Estimated Creatinine Clearance 35.32 ml/min; Glucose 102 mg/dL (74-106)
[2020-11-10 07:08] LABS: ALB/GLOB Ratio 0.5 RATIO (0.9-2.4); AST(SGOT) 15 U/L (15-37); Alanine Aminotransfer ALT/SGPT 18 U/L (16-61); Albumin, Serum 2.1 g/dL (3.2-5.0); Alkaline Phosphatase 92 U/L (45-117); Anion Gap 6 (5-15); BUN/Creat Ratio 18.8 RATIO (10-20); Calcium,Total 8.3 mg/dL (8.5-10.1); Chloride 100 mmol/L (98-107); EST Glomerular Filtration Rate 52 mL/min (>60); Est Glom Filt Rate - Afr Amer 63 mL/min (>60); Globulin 4.1 g/dL (2.2-4.2); Magnesium 2.2 mg/dL (1.6-2.6); Protein, Total 6.2 g/dL (6.4-8.2); Sodium Level 135 mmol/L (136-145)
[2020-11-10] MEDS: guaiFENesin 1,200 MG Tablet 1200 MG PO (08:40)
[2020-11-10] MEDS: Oxybutynin 5 MG Tablet PO (08:40)
[2020-11-10] MEDS: APIXABAN 2.5 MG TABLET PO (08:40)
[2020-11-10] MEDS: Furosemide 20 MG Tablet PO (08:40)
[2020-11-10] MEDS: Metoprolol(XL)Succ 25 MG Tablet PO (08:40)
[2020-11-10] MEDS: Potassium Chloride Oral Tablet 10 MEQ PO (08:40)
[2020-11-10] MEDS: Famotidine 20 MG Tablet 40 MG PO (08:40)
--- NOTE | 2020-11-10 10:10 | PCM.DC ---
Discharge Instructions Diet Discharge Diet: Low fat / Low cholesterol and 2000 mg Sodium Diet Activity Discharge Activity: Return to Normal Activity Follow Up Care Test Results: Test results from this visit will be discussed in further detail at your follow-up appointment, if applicable. Discharge Plan Admission Admit Date/Time: 11/08/20 23:17 Primary Reason for Your Visit: Sepsis secondary to pneumonia Attending Provider: Becki Casper Primary Care Provider: Angeline Batista Instructions Patient Instructions: ED Head Injury (Adult), ED Laceration Scalp Stitches or [place], ED Pneumonia (Adult) Additional Instructions / Restrictions: Complete your antibiotics. Keep yourself hydrated. You will be discharged with a 30-day monitor. Follow-up with cardiology in 1 month. Discharge Orders/Prescriptions Prescriptions: New azithromycin [azithromycin] 250 MG tablet 250 mg PO QHS Qty: 4 RF: 0 amoxicillin-pot clavulanate [Augmentin] 875-125 mg tablet 1 tab PO BID Qty: 10 RF: 0 Continued levothyroxine 200 mcg tablet 200 mcg PO DAILY RF: 0 pantoprazole 40 mg tablet,delayed release (DR/EC) 40 mg PO DAILY RF: 0 famotidine 20 mg tablet 40 mg PO DAILY RF: 0 oxycodone 5 mg capsule 5 mg PO BID PRN (Reason: Pain) RF: 0 furosemide 20 mg tablet 20 mg PO DAILY PRN (Reason: edema) RF: 0 oxybutynin chloride 5 mg tablet 5 mg PO BID RF: 0 Eliquis 2.5 mg tablet 2.5 mg PO BID RF: 0 metoprolol succinate 25 mg tablet extended release 24 hr 25 mg PO BID RF: 0 Referrals / Follow Up: Angeline Batista MD [Primary Care Provider] - 5 Days for suture removal Disposition Disposition (needs filled in before D/C Order can be placed): Home, Self Care
--- NOTE | 2020-11-10 10:19 | DS.PCM_ITS ---
Providers Date of Admission: 11/08/20 Date of Discharge: 11/10/20 Primary Care Physician: Dr. Angeline Batista MD Reason For Visit: SEPSIS SECONDARY TO PNEUMONIA Diagnosis Discharge Diagnosis (1) Sepsis due to pneumonia: Status: Acute Code(s): J18.9 - Pneumonia, unspecified organism; A41.9 - Sepsis, unspecified organism (2) Debility: Status: Acute Code(s): R53.81 - Other malaise (3) Coccygeal contusion: Status: Acute Code(s): S30.0XXA - Contusion of lower back and pelvis, initial encounter Qualifiers: Encounter type: subsequent encounter Qualified Code(s): S30.0XXD - Contusion of lower back and pelvis, subsequent encounter (4) Occipital scalp laceration: Status: Acute Code(s): S01.01XA - Laceration without foreign body of scalp, initial encounter Qualifiers: Encounter type: subsequent encounter Qualified Code(s): S01.01XD - Laceration without foreign body of scalp, subsequent encounter (5) Closed head injury without loss of consciousness: Status: Acute Code(s): S09.90XA - Unspecified injury of head, initial encounter Qualifiers: Encounter type: subsequent encounter Qualified Code(s): S09.90XD - Unspecified injury of head, subsequent encounter (6) Syncope: Status: Acute Code(s): R55 - Syncope and collapse Qualifiers: Syncope type: unspecified Qualified Code(s): R55 - Syncope and collapse (7) Sarcoidosis of lung: Status: Acute Code(s): D86.0 - Sarcoidosis of lung (8) Essential hypertension: Status: Acute Code(s): I10 - Essential (primary) hypertension (9) Hypothyroidism: Status: Chronic Code(s): E03.9 - Hypothyroidism, unspecified Qualifiers: Hypothyroidism type: postoperative Qualified Code(s): E89.0 - Postprocedural hypothyroidism Medications at Discharge Home Medications famotidine 20 mg tablet 40 mg PO DAILY tab 04/12/20 levothyroxine 200 mcg tablet 200 mcg PO DAILY 04/12/20 oxycodone 5 mg capsule 5 mg PO BID PRN 04/12/20 pantoprazole 40 mg tablet,delayed release 40 mg PO DAILY 04/12/20 apixaban 2.5 mg tablet 2.5 mg PO BID 06/01/21 furosemide 20 mg tablet 20 mg PO DAILY PRN 09/20/20 metoprolol succinate 25 mg tablet,extended release 24 hr 25 mg PO BID 09/20/20 oxybutynin chloride 5 mg tablet 5 mg PO BID tab 09/20/20 azithromycin 250 mg PO QHS #4 tablet 11/08/20 amoxicillin-pot clavulanate [Augmentin] 1 tab PO BID #10 tab 11/10/20 Hospital Course Operations None Procedures None Summary of Care Provided Minutes Spent on Discharge: 55 Hospital Course: 85-year-old male with past medical history of hypertension, paroxysmal atrial fibrillation, sarcoidosis, history of neck surgery, walks with a walker who presents after a fall. Patient was getting out of her car, he stepped backwards and fell hitting his head. He had a laceration on the occipital aspect of his head. This was stapled in the emergency department. Work-up in the ED was significant for fever and leukocytosis. Chest x-ray showed a left lower lobe pneumonia. Patient was admitted to the [facility] floor and managed as sepsis secondary to pneumonia. He was started on IV ceftriaxone azithromycin. Patient continued to improve. He was without oxygen. An EKG done on the floor showed normal sinus rhythm, PVCs. His magnesium was 1.6. This was replaced. Patient continued to improve and was discharged the next day on Augmentin. He was also discharged with a 30-day monitor. Follow-up with cardiology in a month. He needs to follow-up with his primary care doctor within a week. Physical Exam Narrative Physical exam: General: Alert, Oriented x3, Cooperative, No apparent distress, Well developed HEENT: Tiana over his occiput Oral: Moist Mucosa Neck: Supple Lungs: Clear to auscultation Cardiovascular: HS I+II, regular, no murmurs Abdomen: Bowel Sounds Present, Soft, Non Tender Extremities: Bilateral leg edema +1 Medical Records Data Medical Nutrition Assessment Dietitian: Nutrition Therapy Diagnosis Start: 11/09/20 13:42 Freq: Status: Active Protocol: Document 11/09/20 15:26 AG (Rec: 11/09/20 15:27 [id number]) Nutrition Malnutrition Evidence of Malnutrition Exists Yes Malnutrition (severe): Acute Illness/Injury Evidenced By Suboptimal Energy Intake ( Severe),Weight Loss (Severe) Clinical Problem Acute Disease or Injury Related Malnutrition Etiology severe malnutrition r/t inadequate oral intake d/t swallowing difficulty Signs/Symptoms as evidenced by pt meeting </= 50% of estimated energy needs x45 days, unintended weight loss of 35#/18% x45 days. Status Active Problem Recommendation Dietitian Recommendations/Changes Continue regular/general diet- texture/consistency modifications per [employer] SALES REPRESENTATIVE. Continue ensure enlive 120mL PO 4x/day at [email or web address]. Magic Cup w/dinners. Weight / BMI Weight Weight: 69.3 kg Body Mass Index (BMI) 24.0 ABG / Lab / Microbiology Data Result Diagrams: 11/10/20 05:30 11/10/20 05:30 Laboratory: Laboratory Results - last 24 hr 11/08/20 18:55: Diff Path Review Reviewed 11/09/20 05:48: Magnesium 1.6 11/10/20 05:30: WBC 17.4 H, RBC 3.66 L, Hgb 10.6 L, Hct 33.3 L, MCV 91.0, MCH 29.0, MCHC 31.8 L, RDW Std Deviation 50.4 H, RDW Coeff of Juan 15.1 H, Plt Count 455 H, MPV 9.2, Immature Gran % (Auto) 2.200 H, Neut % (Auto) 69.0, Lymph % (Auto) 17.6 L, [place] % (Auto) 9.7, Eos % (Auto) 1.2, Baso % (Auto) 0.3, Absolute Neuts (auto) 12.0 H, Absolute Lymphs (auto) 3.05, Nucleated RBC % 0, Differential Comment SCANNED, Diff Path Review August11/10/20 05:30: Sodium 135 L, Potassium 4.0, Chloride 100, Carbon Dioxide 29.0, Anion Gap 6, BUN 26 H, Creatinine 1.38 H, Estim Creat Clear Calc 35.32, Est GFR (MDRD) Af Amer 63, Est GFR (MDRD) Non-Af 52 L, BUN/Creatinine Ratio 18.8, Glucose 102, Calcium 8.3 L, Magnesium 2.2, Total Bilirubin 0.40, AST 15, ALT 18, Alkaline Phosphatase 92, Total Protein 6.2 L, Albumin 2.1 L, Globulin 4.1, Albumin/Globulin Ratio 0.5 L Microbiology: Microbiology 11/09/20 17:08 Interface Orders Streptococcus pneumoniae Antigen (M - Final 11/09/20 17:08 Interface Orders Legionella Antigen - Final D/C Instructions Discharge Diet: Low fat / Low cholesterol and 2000 mg Sodium Diet Meaningful Use Info Meaningful Use Diagnoses (Choose all that apply): None applicable Discharge Plan Admission Admit Date/Time: 11/08/20 23:17 Primary Reason for Your Visit: Sepsis secondary to pneumonia Attending Provider: Becki Casper Primary Care Provider: Angeline Batista Instructions Patient Instructions: ED Head Injury (Adult), ED Laceration Scalp Stitches or Tiana, ED Pneumonia (Adult) Additional Instructions / Restrictions: Complete your antibiotics. Keep yourself hydrated. You will be discharged with a 30-day monitor. Follow-up with cardiology in 1 month. Discharge Orders/Prescriptions Prescriptions: New azithromycin [azithromycin] 250 MG tablet 250 mg PO QHS Qty: 4 RF: 0 amoxicillin-pot clavulanate [Augmentin] 875-125 mg tablet 1 tab PO BID Qty: 10 RF: 0 Continued levothyroxine 200 mcg tablet 200 mcg PO DAILY RF: 0 pantoprazole 40 mg tablet,delayed release (DR/EC) 40 mg PO DAILY RF: 0 famotidine 20 mg tablet 40 mg PO DAILY RF: 0 oxycodone 5 mg capsule 5 mg PO BID PRN (Reason: Pain) RF: 0 furosemide 20 mg tablet 20 mg PO DAILY PRN (Reason: edema) RF: 0 oxybutynin chloride 5 mg tablet 5 mg PO BID RF: 0 Eliquis 2.5 mg tablet 2.5 mg PO BID RF: 0 metoprolol succinate 25 mg tablet extended release 24 hr 25 mg PO BID RF: 0 Other Ambulatory Orders: 30-Day Event Recorder (Routine) Location: None Selected Ordered By: Dr. Becki Casper Referrals / Follow Up: Angeline Batista MD [Primary Care Provider] - 5 Days for suture removal (HAVE CALL PER [facility] IN [facility].) Arnaldo Meek MD [STAFF PHYSICIAN] - Within 2 Weeks Disposition Disposition (needs filled in before D/C Order can be placed): Home, Self Care Charges/Coding Visit Charges Inpatient E&M: 13308 Disch Hosp
--- NOTE | 2020-11-10 11:25 | CASEMGMT ---
RN CM updated that patient would like outpatient therapy and FWW at discharge. RN CM received scripts for outpatient therapy and FWW. RN CM in to discuss with patient. Patient was provided a list of DME providers including quality and resource use data and consistent with the patient?s preferred geographic region, medical needs, and insurance network. Patient prefers that RN CM discuss with , Julia. CAROL MCCORMICK called Julia to discuss DME and outpatient therapy. CAROL MCCORMICK provided list of in-network providers for DME and agreeable to [facility]. Julia voiced understanding of following up with [facility] to schedule outpatient therapy. CAROL CM faxed referral to [facility] and arranged for walker to be delivered to patient's room. , Julia had no further questions or concerns at this time.
[2020-11-10 12:35] LABS: Pathologist Review Reviewed
--- NOTE | 2020-11-10 14:23 | NURSING ---
This RN reviewed SN charting
== END 2020-11-10 14:40 | disposition home or self-care (01) | DRG 983 ==
LOC: ED 22:40 → MS3 23:22
PROVIDERS: Admitting Provider Hospitalist; Emergency Provider Emergency Medicine; PCP Family Medicine; Visit Provider Internal Medicine
DX: J18.9 Pneumonia, unspecified organism (principal); R13.11 Dysphagia, oral phase; S01.01XA Laceration without foreign body of scalp, initial encounter; S30.0XXA Contusion of lower back and pelvis, initial encounter; Z23 Encounter for immunization; E83.42 Hypomagnesemia; I49.1 Atrial premature depolarization; D86.0 Sarcoidosis of lung; D86.86 Sarcoid arthropathy; I48.0 Paroxysmal atrial fibrillation; I12.9 Hypertensive chronic kidney disease with stage 1 through stage 4 chronic kidney disease, or unspecified chronic kidney disease; N18.9 Chronic kidney disease, unspecified; I49.3 Ventricular premature depolarization; E89.0 Postprocedural hypothyroidism; M19.90 Unspecified osteoarthritis, unspecified site; K21.9 Gastro-esophageal reflux disease without esophagitis; V48.4XXA Person boarding or alighting a car injured in noncollision transport accident, initial encounter; Y93.9 Activity, unspecified; Y92.9 Unspecified place or not applicable; Y99.9 Unspecified external cause status; Z68.24 Body mass index [BMI] 24.0-24.9, adult; Z79.01 Long term (current) use of anticoagulants; Z79.52 Long term (current) use of systemic steroids; Z79.890 Hormone replacement therapy; Z79.899 Other long term (current) drug therapy; Z85.850 Personal history of malignant neoplasm of thyroid
CPT/HCPCS: 36415; 70450; 71045; 72125; 72220; 74230; 80048; 80053; 81001; 83605; 83735; 84145; 84484; 85025; 87040; 87449; 90715; 92610; 92611; 93005; 97110; 97162; 97166; 97530; 97802; 99285; J7030; A4216; J0696

== ENCOUNTER → 2020-11-16 14:29 | Outpatient (CLI) | payer MEDICARE, SELFPAY ==
[2020-11-09 00:53] VITALS: BMI 24.0
--- NOTE | 2020-11-16 14:31 | RAD_ITS ---
STUDY: X-RAY CHEST REASON FOR EXAM: Male, 85 years old. PNEUMONIA TECHNIQUE: PA and lateral views of the chest. COMPARISON: Comparison is made with prior study dated 11/08/2020. FINDINGS: Stable elevation of the right hemidiaphragm. There has been improved aeration of the right lung base as compared to prior study. Mild residual changes are seen in the left lung base. This may be related to scarring. There is no demonstrated pleural abnormality. Normal size heart. Normal mediastinum and maurisio. Normal visualized pulmonary arteries. There is atherosclerotic calcification of the aortic arch with tortuosity. There are diffuse degenerative changes of the visualized thoracic spine. Normal visualized ribs, clavicles, and shoulders. There is no demonstrated abnormality of the visualized soft tissue structures of the upper abdomen. RAD/Chest PA and Lateral IMPRESSION: Improved aeration of the left lung base as compared to prior study. Electronically Signed: Dipak Moran MD at 22:30 EDT , Service support ,
== END ==
PROVIDERS: PCP Family Medicine; Referring Provider Family Medicine; Visit Provider Family Medicine
DX: J18.9 Pneumonia, unspecified organism (principal)
CPT/HCPCS: 71046

== ENCOUNTER 2020-11-23 11:07 | Inpatient (IN) | payer MEDICARE, SELFPAY ==
[2020-11-09 00:53] VITALS: BMI 24.0
[2020-11-23] VITALS (11 sets, daily range): BP systolic 124–144; BP diastolic 61–90; PULSE 89–120; RESP 16–22; TEMP 36.6–37.2; O2SAT 94–97; BMI 25.5; BMI 24.6
--- NOTE | 2020-11-23 11:20 | EKG12_ITS ---
Test Reason : WEAKNESS Blood Pressure : / mmHG Vent. Rate : 090 BPM Atrial Rate : 090 BPM P-R Int : 186 ms QRS Dur : 066 ms QT Int : 352 ms P-R-T Axes : 073 059 064 degrees QTc Int : 430 ms Sinus rhythm with Premature atrial complexes Septal infarct , age undetermined Abnormal ECG Confirmed by ANGELLA BERG, STEVE ([id number]), editor book JANETT AMBRIZ ([id number]) on 11/28/2020 9:34:39 AM Referred By: DICK Confirmed By:STEVE PERALES MD
--- NOTE | 2020-11-23 11:21 | EDS_ITS ---
HPI History of Present Illness Chief Complaint: Weakness Detail of Chief Complaint: Generalized weakness x4 days Informant: patient and spouse/S.O. Narrative Narrative: Patient presents to the emergency department via EMS from home. Patient has been having hard time getting out of a chair over the last 4 days. states she cannot care for him as she cannot lift him and cannot leave him alone at home. She called primary care physician who told him to come to the ER for evaluation. Patient was admitted to this hospital 3 weeks ago for sepsis pneumonia. He has history of sarcoid but denies being any more short of breath than usual. He is not on home O2. He denies fever. He denies urinary symptoms. Patient has had his Covid vaccines. He denies any chest pain. Patient denies abdominal pain. He denies blood in stool or black tarry stools. Patient is on apixaban for history of A. fib. Prior similar symptoms: No PFSH [facility] Medical History (Updated 11/23/20 @ 15:[address] Mariela Wells, ) Abnormal EKG Anemia Atrial fibrillation Cancer Cat bite Chest pain Chronic pain Chronic steroid use CRF (chronic renal failure) Elevated serum creatinine Essential hypertension Former smoker GERD (gastroesophageal reflux disease) History of esophageal stricture History of thyroid cancer Hyperglycemia Hypothyroidism Irregular heart beat Osteoarthritis PAC (premature atrial contraction) Sarcoid arthropathy Sarcoidosis Sarcoidosis of lung Home Medications famotidine 20 mg tablet 40 mg PO DAILY tab 04/12/20 [History Last Taken Unknown] levothyroxine 200 mcg tablet 200 mcg PO DAILY 04/12/20 [History Last Taken Unknown] oxycodone 5 mg capsule 5 mg PO BID PRN 04/12/20 [History Last Taken Unknown] pantoprazole 40 mg tablet,delayed release 40 mg PO DAILY 04/12/20 [History Last Taken Unknown] apixaban 2.5 mg tablet 2.5 mg PO BID 09/20/20 [History Last Taken Unknown] furosemide 20 mg tablet 20 mg PO DAILY PRN 09/20/20 [History Last Taken Unknown] metoprolol succinate 25 mg tablet,extended release 24 hr 25 mg PO BID 09/20/20 [History Last Taken Unknown] oxybutynin chloride 5 mg tablet 5 mg PO BID tab 09/20/20 [History Last Taken Unknown] azithromycin 250 mg PO QHS #4 tablet 11/08/20 [Rx Last Taken Unknown] amoxicillin-pot clavulanate [Augmentin] 1 tab PO BID #10 tab 11/10/20 [Rx Last Taken Unknown] Allergy/AdvReac Type Severity Reaction Status Date / Time No Known Allergies Allergy Verified 11/23/20 11:13 Family History Other CVA (cerebral vascular accident) Surgical History History of spinal surgery History of thyroidectomy S/P TURP (status post transurethral resection of prostate) Social History Smoking Status: Former smoker alcohol intake: current details: occasional substance use type: does not use caffeine: Yes Type: coffee Number of servings: 4 ROS ROS ED ROS Narrative Generalized weakness Constitutional Constitutional ED: Reports systems reviewed and no addt'l complaints, except as documented; Denies body ache(s), change in weight or chills Eyes Eyes: Denies acute decrease in peripheral vision, change in vision, double vision or loss of vision ENT ENT ED: Reports none; Denies ear pain, lip swelling, loss taste/smell, neck pain, otalgia or sore throat Cardiovascular Cardiovascular: Reports none; Denies abdominal pain, chest pain with activity, leg edema, lightheadedness, palpitations, rapid heart rate or syncope Respiratory/Chest Respiratory/Chest: Reports none; Denies change in mental status, dry cough, dyspnea, hemoptysis, shortness of breath at rest or shortness of breath with exertion Gastrointestinal Gastrointestinal: Reports none; Denies abdominal pain, change in stool character, diarrhea, hematemesis, hematochezia, melena, rectal bleeding or vomiting Genitourinary Genitourinary ED: Reports none; Denies abdominal discomfort, anuria, dysuria, genital pain or polyuria Musculoskeletal Musculoskeletal: Reports none; Denies arthralgias, back pain, difficulty walking, extremity pain, muscle weakness or myalgias Integumentary Reports none; Denies abscess or rash Neurologic Neurologic: Reports none; Denies abnormal gait, confusion, focal weakness, frequent falls, headache(s), loss of vision, numbness, paresthesias, radicular pain, vertigo or weakness Psychiatric Psychiatric: Reports systems reviewed and no addt'l complaints, except as documented and none; Denies behavioral changes, confusion, difficulty concentrating, hallucinations, suicidal ideation, tactile hallucinations or visual hallucinations Endocrine Endocrinology: Denies none, cold intolerance, excessive sweating, fatigue or heat intolerance Hematologic/Lymphatic Hematologic/Lymphatic: Reports none; Denies anemia, easy bleeding or easy bruising Allergic/Immunologic Allergic/Immunologic ED: Denies as per HPI, none, lip swelling, mouth swelling, throat swelling, tongue swelling or hives EXAM Physical Exam Const Vital Signs: 11/23/20 11:08 11/23/20 11:13 11/23/20 11:35 Temperature 98 F 98.9 F Temperature Source Oral Temporal Pulse Rate 96 93 Respiratory Rate 18 19 H Respiratory Effort Short of Breath Blood Pressure 142/66 H 144/65 H Blood Pressure Mean 91 91 Pulse Ox 94 97 Oxygen Delivery Method Room Air Room Air 11/23/20 12:39 11/23/20 13:56 Temperature 98.3 F 98.7 F Temperature Source Temporal Oral Pulse Rate 89 104 H Respiratory Rate 18 21 H Respiratory Effort Blood Pressure 124/61 H 141/70 H Blood Pressure Mean 82 93 Pulse Ox 97 97 Oxygen Delivery Method Room Air Room Air Positive well nourished and well developed General Appearance ED: well developed and NAD HEENT Reports TM's clear and moist mucous membranes normocephalic and atraumatic; Negative for trauma or tenderness Tympanic Membrane ED: Yes TM's clear Eyes PERRL and EOMs intact bilaterally General Eye ED: Negative for pale conjunctiva or scleral icterus Neck no lymphadenopathy, supple and no JVD General: Negative for tenderness Chest Wall inspection of chest normal and palpation of chest normal Chest: Negative for tenderness Resp normal respiratory effort and clear to auscultation bilaterally Effort and Inspection: Negative for respiratory distress or pain with movement Auscultation: Negative for rhonchi, wheezes or diminished lung sounds Cardio S1 normal heart sound, S2 normal heart sound and no murmurs Rate: other Other Details: Irregularly irregular Peripheral Pulses: pulses 2+ throughout GI normal to inspection, nondistended, normoactive bowel sounds, soft to palpation, non-tender, non-distended and no masses Back/Spine no CVA tenderness and no thoracic nor lumbar tenderness Extremity normal to inspection Extremity Narrative: Patient has +2 edema left lower extremity and +1 edema right lower extremity. General Extremety ED: Negative for edema General Extremity: Negative for edema Neuro oriented x3, CN's II-XII intact bilaterally, no sensory deficits noted and gait normal Sensorium / Orientation: awake, alert, oriented to person, oriented to place and oriented to time Motor Exam: strength 5/5 throughout and strength abnormal Psych mental status grossly normal Skin no rashes or lesions noted and no wounds MDM MDM MDM Narrative Medical decision making narrative: Results discussed with patient. Etiology of his weakness is unclear. Patient does have signs of acute kidney injury and states he is just not been eating or drinking last couple of days. Patient will be admitted for possible placement. Lab Data Attestation: I reviewed the patient's lab results. Labs: Laboratory Results - last 24 hr 11/23/20 11/23/20 11/23/20 09:25 09:25 11:25 WBC 14.8 H RBC 3.55 L Hgb 10.2 L Hct 33.1 L MCV 93.2 MCH 28.7 MCHC 30.8 L RDW Std Deviation 52.1 H RDW Coeff of Juan 15.1 H Plt Count 658 H MPV 8.8 Immature Gran % (Auto) 2.000 H Neut % (Auto) 68.6 Lymph % (Auto) 15.2 L [place] % (Auto) 12.6 H Eos % (Auto) 1.0 Baso % (Auto) 0.6 Absolute Neuts (auto) 10.2 H Absolute Lymphs (auto) 2.25 Nucleated RBC % 0 Differential Comment SCANNED Diff Path Review May foll Sodium 137 Potassium 4.0 Chloride 101 Carbon Dioxide 33.0 H Anion Gap 3 L BUN 48 H Creatinine 2.13 H Estim Creat Clear Calc 23.71 Est GFR (MDRD) Af Amer 38 L Est GFR (MDRD) Non-Af 32 L BUN/Creatinine Ratio 22.5 H Glucose 112 H Lactic Acid 1.7 Calcium 8.7 Total Bilirubin 0.40 AST 29 ALT 26 Alkaline Phosphatase 148 H Troponin I High Sens 27.1 Total Protein 7.5 Albumin 2.4 L Globulin 5.1 H Albumin/Globulin Ratio 0.5 L Urine Color Urine Clarity Urine pH Ur Specific [place] Urine Protein Urine Glucose (UA) Urine Ketones Urine Occult Blood Urine Nitrite Urine Bilirubin Urine Urobilinogen Ur Leukocyte Esterase Urine RBC Urine WBC Ur Squamous Epith Cells Urine Bacteria Urine Mucus 11/23/20 13:54 WBC RBC Hgb Hct MCV MCH MCHC RDW Std Deviation RDW Coeff of Juan Plt Count MPV Immature Gran % (Auto) Neut % (Auto) Lymph % (Auto) [place] % (Auto) Eos % (Auto) Baso % (Auto) Absolute Neuts (auto) Absolute Lymphs (auto) Nucleated RBC % Differential Comment Diff Path Review Sodium Potassium Chloride Carbon Dioxide Anion Gap BUN Creatinine Estim Creat Clear Calc Est GFR (MDRD) Af Amer Est GFR (MDRD) Non-Af BUN/Creatinine Ratio Glucose Lactic Acid Calcium Total Bilirubin AST ALT Alkaline Phosphatase Troponin I High Sens Total Protein Albumin Globulin Albumin/Globulin Ratio Urine Color Yellow Urine Clarity Clear Urine pH 5.0 Ur Specific [place] 1.015 Urine Protein Negative Urine Glucose (UA) Normal Urine Ketones Negative Urine Occult Blood Negative Urine Nitrite Negative Urine Bilirubin Negative Urine Urobilinogen Normal Ur Leukocyte Esterase Negative Urine RBC 0 SEEN Urine WBC 0-5 SEEN Ur Squamous Epith Cells 0-5 SEEN Urine Bacteria RARE Urine Mucus 0 SEEN Radiography Chest X-Ray - ED: 1 View Diagnostic Testing: Radiology Impression Chest X-Ray 11/23/20 12:05 IMPRESSION: Normal x-ray examination of the chest. Electronically Signed: Bert Peterson MD at 12:53 EDT Tel , Service support , 1 view chest x-ray obtained interpreted by myself as no acute disease process. Radiology in agreement. EKG Initial EKG: Attestation: I personally reviewed and interpreted this EKG as follows: Comments: Sinus rhythm with occasional PACs and old septal infarct Discharge Plan Triage Chief Complaint: Weakness ED Provider: Mariela Wells Dx/Rx/DC Orders Clinical Impression: Weakness, Acute kidney injury Prescriptions: No Action levothyroxine 200 mcg tablet 200 mcg PO DAILY RF: 0 pantoprazole 40 mg tablet,delayed release (DR/EC) 40 mg PO DAILY RF: 0 famotidine 20 mg tablet 40 mg PO DAILY RF: 0 oxycodone 5 mg capsule 5 mg PO BID PRN (Reason: Pain) RF: 0 furosemide 20 mg tablet 20 mg PO DAILY PRN (Reason: edema) RF: 0 oxybutynin chloride 5 mg tablet 5 mg PO BID RF: 0 Eliquis 2.5 mg tablet 2.5 mg PO BID RF: 0 metoprolol succinate 25 mg tablet extended release 24 hr 25 mg PO BID RF: 0 azithromycin [azithromycin] 250 MG tablet 250 mg PO QHS Qty: 4 RF: 0 amoxicillin-pot clavulanate [Augmentin] 875-125 mg tablet 1 tab PO BID Qty: 10 RF: 0 Primary Care Provider: Angeline Batista Referrals: Angeline Batista MD [Primary Care Provider] - Disposition Disposition: Acute Care Hospital [facility]
[2020-11-23 11:28] LABS: Absolute Lymphocyte Count 2.25 X10^3/uL (0.83-4.51); Absolute Neutrophil Count 10.2 X10^3/uL (2.0-7.7); Basophil# 0.09 X10^3/uL; Basophil% 0.6 % (0-1); Eosinophil# 0.15 X10^3/uL; Hematocrit 33.1 % (40-54); Hemoglobin 10.2 g/dL (13.0-16.5); Lymphocyte # 2.25 X10^3/ul (0.83-4.51); Lymphocyte % 15.2 % (19-41); Mean Corp Hgb Conc 30.8 g/dL (32-36); Mean Corpuscular Hgb 28.7 pg (27.0-32.0); Mean Corpuscular Volume 93.2 fL (80-94); Mean Platelet Vol. 8.8 fl (6.2-12.0); Monocyte# 1.87 X10^3/uL; Monocyte% 12.6 % (0-10); NRBC Flagged by Analyzer 0 % (0-5); Neutrophil # 10.16 X10^3/uL (2.7-7.7); Neutrophil % 68.6 % (47-70); POSITIVE DIFFERENTIAL YES; Platelet Count 658 K/mm3 (150-450); RBC Distribution Width CV 15.1 % (11.6-14.6); RBC Distribution Width SD 52.1 fl (35.1-43.9); Red Blood Count 3.55 M/mm3 (4.6-6.2); White Blood Count 14.8 K/mm3 (4.4-11.0)
[2020-11-23 11:31] LABS: Differential Indicated SCAN CRITERIA MET
[2020-11-23] MEDS: 0.9% Normal Saline 1,000 ML 150 ML IV ×2 (11:34→17:23)
[2020-11-23 11:46] LABS: Differential Comment SCANNED
[2020-11-23 11:50] LABS: ALB/GLOB Ratio 0.5 RATIO (0.9-2.4); AST(SGOT) 29 U/L (15-37); Alanine Aminotransfer ALT/SGPT 26 U/L (16-61); Albumin, Serum 2.4 g/dL (3.2-5.0); Alkaline Phosphatase 148 U/L (45-117); Anion Gap 3 (5-15); BUN 48 mg/dL (7-18); BUN/Creat Ratio 22.5 RATIO (10-20); Calcium,Total 8.7 mg/dL (8.5-10.1); Chloride 101 mmol/L (98-107); Creatinine, Serum 2.13 mg/dL (0.70-1.30); EST Glomerular Filtration Rate 32 mL/min (>60); Est Glom Filt Rate - Afr Amer 38 mL/min (>60); Estimated Creatinine Clearance 23.71 ml/min; Globulin 5.1 g/dL (2.2-4.2); Glucose 112 mg/dL (74-106); Protein, Total 7.5 g/dL (6.4-8.2); Sodium Level 137 mmol/L (136-145); Troponin-I HS 27.1 pg/mL (3.0-78.5)
[2020-11-23 11:59] LABS: Lactic Acid 1.7 mmol/L (0.4-1.9)
--- NOTE | 2020-11-23 12:05 | RAD_ITS ---
STUDY: X-RAY CHEST REASON FOR EXAM: Male, 85 years old. weakness TECHNIQUE: Single PA view of the chest. COMPARISON: 11/16/2020 FINDINGS: The lungs are clear and expanded. There is no demonstrated pleural abnormality. Normal size heart. Normal mediastinum and maurisio. Normal visualized pulmonary arteries. Normal visualized aortic arch and descending thoracic aorta. Normal visualized thoracic spine. Normal visualized ribs, clavicles, and shoulders. There is no demonstrated abnormality of the visualized soft tissue structures of the upper abdomen. RAD/Chest 1 View (Portable) IMPRESSION: Normal x-ray examination of the chest. Electronically Signed: Bert Peterson MD at 12:53 EDT Tel , Service support ,
--- NOTE | 2020-11-23 12:43 | ED.RN ---
sepsis alert activated. dr patel made aware. no source at this time. [place] [id number]
[2020-11-23 13:59] LABS: Mucous, Urine 0 SEEN /hpf (<or=2+); Red Blood Cells-Urine 0 SEEN /hpf (0-5)
[2020-11-23 14:04] LABS: Color, Urine Yellow (Yellow); Glucose, Dipstick Normal (Normal); Ketone-Dipstick Negative (Negative); Leukocyte Esterase-Dipstick Negative /ul (Negative); Nitrite-Dipstick Negative (Negative); Occult Blood-Urine Negative /ul (Negative); Protein-Dipstick Negative (Negative); Specific Gravity, Urine 1.015 (1.002-1.030); Urine Bilirubin Dipstick Negative (Negative); Urine Clarity Clear (Clear); Urine Urobilinogen Normal (Normal)
[2020-11-23 14:11] LABS: Bacteria RARE /hpf (None Seen); Squamous Epithelial Cells - UA 0-5 SEEN /hpf (0-5); White Blood Cells 0-5 SEEN /hpf (0-5)
--- NOTE | 2020-11-23 15:33 | HP.PCM.HOS_ITS ---
HPI - General General Date of Service: 11/23/20 Chief Complaint: weakness HPI Narrative DEMETRIUS BURNS, is a 85 M who presents with weakness. Patient has been having difficulty getting up over the past 4 days.. Patient's is been unable to get him up to the walker. Patient was admitted recently with pneumonia and had fallen and sustained a head contusion. He was ordered to get a an event monitor which he had just recently received has not had a chance to use that yet. They say the day after he was discharged he had fallen while going to the bathroom gas station. He has had no further falls but is using a walker but over the past several days, he has been having more and more difficulty getting up. He denies any fever chills just feels weak. Over the past few days, he is also just not eaten much. [facility] Medical History Abnormal EKG Anemia Atrial fibrillation Cancer Cat bite Chest pain Chronic pain Chronic steroid use CRF (chronic renal failure) Elevated serum creatinine Essential hypertension Former smoker GERD (gastroesophageal reflux disease) History of esophageal stricture History of thyroid cancer Hyperglycemia Hypothyroidism Irregular heart beat Osteoarthritis PAC (premature atrial contraction) Sarcoid arthropathy Sarcoidosis Sarcoidosis of lung Home Medications famotidine 20 mg tablet 40 mg PO DAILY tab 04/12/20 [History Last Taken 11/23/20] levothyroxine 200 mcg tablet 200 mcg PO DAILY 04/12/20 [History Last Taken 11/23/20] apixaban 2.5 mg tablet 2.5 mg PO BID 09/20/20 [History Last Taken Unknown] furosemide 20 mg tablet 20 mg PO DAILY PRN 09/20/20 [History Last Taken 11/23/20] metoprolol succinate 25 mg tablet,extended release 24 hr 25 mg PO BID 09/20/20 [History Last Taken 11/23/20] oxybutynin chloride 5 mg tablet 5 mg PO BID tab 09/20/20 [History Last Taken 11/23/20] acetaminophen [Tylenol Extra Strength] 500 mg PO BID 11/23/20 [History Last Taken 11/23/20] oxycodone 5 mg PO BID 11/23/20 [History Last Taken 11/23/20] Allergy/AdvReac Type Severity Reaction Status Date / Time No Known Allergies Allergy Verified 11/23/20 11:13 Family History Other CVA (cerebral vascular accident) Surgical History History of spinal surgery History of thyroidectomy S/P TURP (status post transurethral resection of prostate) Social History Smoking Status: Former smoker alcohol intake: current details: occasional substance use type: does not use caffeine: Yes Type: coffee Number of servings: 4 ROS ROS Narrative No fever chills. Intermittent chronic chest pain. No shortness of breath. No abdominal pain, no nausea or vomiting. Patient does have lower extremity edema. ROS Vital Signs Vital Signs Vital Signs: 11/23/20 11:08 11/23/20 11:13 11/23/20 11:35 Temperature 36.6 C 37.2 C Temperature Source Oral Temporal Pulse Rate 96 93 Respiratory Rate 18 19 H Respiratory Effort Short of Breath Blood Pressure 142/66 H 144/65 H Blood Pressure Mean 91 91 Pulse Ox 94 97 Oxygen Delivery Method Room Air Room Air 11/23/20 12:39 11/23/20 13:56 11/23/20 15:00 Temperature 36.8 C 37.1 C 37.1 C Temperature Source Temporal Oral Temporal Pulse Rate 89 104 H 103 H Respiratory Rate 18 21 H 21 H Respiratory Effort Blood Pressure 124/61 H 141/70 H 128/69 H Blood Pressure Mean 82 93 88 Pulse Ox 97 97 97 Oxygen Delivery Method Room Air Room Air Room Air Weight Weight: 74 kg Body Mass Index (BMI) 25.5 Physical Exam Const alert General Appearance: cooperative HEENT normocephalic HEENT Narrative: Mucous membranes dry Eyes Eyes Narrative: No icterus Neck no lymphadenopathy Neck Narrative: No thyromegaly Resp normal respiratory effort, no retractions, no use of accessory muscles and clear to auscultation bilaterally Cardio regular rate, regular rhythm, S1 normal heart sound and S2 normal heart sound GI normal to inspection, nondistended, normoactive bowel sounds, soft to palpation and non-distended Extremity Extremity Narrative: Bilateral 2+ lower extremity edema. Skin Skin Narrative: Skin abrasions on right arm. Neuro no focal motor deficits Sensorium / Orientation: awake and alert Speech: speech normal Psych affect normal Results Lab / Micro Data Attestation: I reviewed the patient's lab results. Result Diagrams: 11/23/20 09:25 11/23/20 09:25 Labs: Laboratory Results - last 24 hr 11/23/20 09:25: WBC 14.8 H, RBC 3.55 L, Hgb 10.2 L, Hct 33.1 L, MCV 93.2, MCH 28.7, MCHC 30.8 L, RDW Std Deviation 52.1 H, RDW Coeff of Juan 15.1 H, Plt Count 658 H, MPV 8.8, Immature Gran % (Auto) 2.000 H, Neut % (Auto) 68.6, Lymph % (Auto) 15.2 L, [place] % (Auto) 12.6 H, Eos % (Auto) 1.0, Baso % (Auto) 0.6, Absolute Neuts (auto) 10.2 H, Absolute Lymphs (auto) 2.25, Nucleated RBC % 0, Differential Comment SCANNED, Diff Path Review May foll 11/23/20 09:25: Sodium 137, Potassium 4.0, Chloride 101, Carbon Dioxide 33.0 H, Anion Gap 3 L, BUN 48 H, Creatinine 2.13 H, Estim Creat Clear Calc 23.71, Est GFR (MDRD) Af Amer 38 L, Est GFR (MDRD) Non-Af 32 L, BUN/Creatinine Ratio 22.5 H , Glucose 112 H, Calcium 8.7, Total Bilirubin 0.40, AST 29, ALT 26, Alkaline Phosphatase 148 H, Troponin I High Sens 27.1, Total Protein 7.5, Albumin 2.4 L, Globulin 5.1 H, Albumin/Globulin Ratio 0.5 L 11/23/20 11:25: Lactic Acid 1.7 11/23/20 13:54: Urine Color Yellow, Urine Clarity Clear, Urine pH 5.0, Ur Specific [place] 1.015, Urine Protein Negative, Urine Glucose (UA) Normal, Urine Ketones Negative, Urine Occult Blood Negative, Urine Nitrite Negative, Urine Bilirubin Negative, Urine Urobilinogen Normal, Ur Leukocyte Esterase Negative, Urine RBC 0 SEEN, Urine WBC 0-5 SEEN, Ur Squamous Epith Cells 0-5 SEEN, Urine Bacteria RARE, Urine Mucus 0 SEEN Radiology Impression Chest X-Ray 11/23/20 12:05 IMPRESSION: Normal x-ray examination of the chest. Electronically Signed: Bert Peterson MD at 12:53 EDT Tel , Service support , Assessment & Plan Assessment/Plan (1) Acute kidney injury: (2) Weakness: PLAN: 1. Acute kidney injury Creatinine 2.13, up from 1.38 on 722 Clinically, I suspect that this is likely prerenal Plan: Hold furosemide and give a liter of IV fluids and reevaluate. 2. Debility This is likely a progression the patient that is already debilitated using a walker and has just not been eating much over the past few days and is clinically dehydrated. PT OT evaluate and treat Did discuss a fci facility with the patient and his that that may be necessary. 3. Paroxysmal atrial fibrillation Currently in sinus rhythm. Continue with apixaban and metoprolol succinate 4. Hypothyroidism Stable Continue levothyroxine 5. VTE prophylaxis: Not indicated as patient is already on anticoagulation 6. Advanced directives: Discussed with the patient. Patient was to be full CODE STATUS at this time. Anticipated hospitalization will be 48 to 72 hours. Charges/Coding Visit Charges Inpatient E&M: 23613 Init Hosp L3
[2020-11-23] MEDS: Metoprolol(XL)Succ 25 MG Tablet PO (21:46)
[2020-11-23] MEDS: Oxybutynin 5 MG Tablet PO (21:46)
[2020-11-23] MEDS: oxyCODONE 5 MG Tablet PO (21:46)
[2020-11-23] MEDS: Acetaminophen 500 MG Tablet PO (21:46)
[2020-11-24] VITALS (15 sets, daily range): BP systolic 108–146; BP diastolic 46–75; PULSE 70–124; RESP 16–20; TEMP 36.7–37.7; O2SAT 95–100
[2020-11-24] MEDS: Metoprolol Tartrate 25 MG Tablet PO (00:21)
[2020-11-24] MEDS: Levothyroxine 100 MCG Tablet 200 MCG PO (05:25)
[2020-11-24 06:41] LABS: Absolute Lymphocyte Count 2.08 X10^3/uL (0.83-4.51); Basophil# 0.05 X10^3/uL; Basophil% 0.4 % (0-1); Eosinophil# 0.08 X10^3/uL; Eosinophils% 0.6 % (0-5); Hemoglobin 9.7 g/dL (13.0-16.5); Lymphocyte # 2.08 X10^3/ul (0.83-4.51); Lymphocyte % 15.7 % (19-41); Mean Corp Hgb Conc 31.3 g/dL (32-36); Mean Corpuscular Hgb 28.3 pg (27.0-32.0); Mean Corpuscular Volume 90.4 fL (80-94); Mean Platelet Vol. 8.9 fl (6.2-12.0); Monocyte# 1.88 X10^3/uL; Monocyte% 14.2 % (0-10); NRBC Flagged by Analyzer 0 % (0-5); Neutrophil # 8.99 X10^3/uL (2.7-7.7); Neutrophil % 67.7 % (47-70); POSITIVE DIFFERENTIAL YES; Platelet Count 607 K/mm3 (150-450); RBC Distribution Width CV 15.2 % (11.6-14.6); Red Blood Count 3.43 M/mm3 (4.6-6.2); White Blood Count 13.3 K/mm3 (4.4-11.0)
[2020-11-24 06:48] LABS: Differential Indicated SCAN CRITERIA MET
[2020-11-24 07:07] LABS: Anion Gap 9 (5-15); BUN 44 mg/dL (7-18); BUN/Creat Ratio 27.3 RATIO (10-20); Calcium,Total 8.3 mg/dL (8.5-10.1); Chloride 104 mmol/L (98-107); Creatinine, Serum 1.61 mg/dL (0.70-1.30); EST Glomerular Filtration Rate 44 mL/min (>60); Est Glom Filt Rate - Afr Amer 53 mL/min (>60); Estimated Creatinine Clearance 31.36 ml/min; Glucose 120 mg/dL (74-106); Magnesium 1.8 mg/dL (1.6-2.6); Potassium 3.7 mmol/L (3.5-5.1); Sodium Level 140 mmol/L (136-145)
--- NOTE | 2020-11-24 10:05 | CASEMGMT ---
Addendum entered by Rosa Moreland 11/24/20 13:32: Dr. Gomez is agreeable to palliative referral. Order placed and referral faxed. Katarina MEDINA CM Original Note: Readmission chart review: Pt was came in on 11/08/20 for fall w/ recent hx of same and found to be SOB with sepsis secondary to pna and was admitted to [facility] for same. See CM assessment completed by Jerica MEDINA CM on 11/09/20. Therapy recommended OP/HHC and FWW, which pt initially declined all but then agreed to OP and FWW. Pt was to f/u with PCP in 5 days to get felton removed from head s/p fall. Pt was sent back to [facility] ED by Dr. Anthony on 11/23/20 for increased weakness x2 weeks, incontinent stool/urine. Per , she is unable to get pt up at home. Sarai Harris SW aware and CM to follow PT/OT evals and for any further discharge planning/needs. Pt does qualify for palliative referral and this RN CM will f/u with Dr. Gomez regarding same. Katarina MEDINA CM
--- NOTE | 2020-11-24 10:43 | PN.HOSP_ITS ---
Documented by User: MATTHIEU Hobbs 11/24/20 11:06 Subjective Subjective Patient seen and examined. Patient states that he is overall feeling better however he is having increased neck pain Objective Data Objective Data Vital Signs: Vital Signs Temp Pulse Resp BP Pulse Ox 98.5 F 94 16 131/65 H 97 11/24/20 10:41 11/24/20 10:41 11/24/20 10:41 11/24/20 10:41 11/24/20 10:41 Oxygen Delivery Method Room Air Weight: 157 lb 3.033 oz Body Mass Index (BMI) 24.6 Intake & Output: Intake and Output for Last 24 Hours 11/22/20 11/23/20 11/24/20 23:59 23:59 23:59 Intake Total 1692.5 / 1692.5 Balance 1692.5 / 1692.5 Lab / Micro Data Result Diagrams: 11/24/20 06:20 11/24/20 06:20 Labs: Laboratory Results - last 24 hr 11/23/20 09:25: WBC 14.8 H, RBC 3.55 L, Hgb 10.2 L, Hct 33.1 L, MCV 93.2, MCH 28.7, MCHC 30.8 L, RDW Std Deviation 52.1 H, RDW Coeff of Juan 15.1 H, Plt Count 658 H, MPV 8.8, Immature Gran % (Auto) 2.000 H, Neut % (Auto) 68.6, Lymph % (Auto) 15.2 L, [place] % (Auto) 12.6 H, Eos % (Auto) 1.0, Baso % (Auto) 0.6, Absolute Neuts (auto) 10.2 H, Absolute Lymphs (auto) 2.25, Nucleated RBC % 0, Differential Comment SCANNED, Diff Path Review August11/23/20 09:25: Sodium 137, Potassium 4.0, Chloride 101, Carbon Dioxide 33.0 H, Anion Gap 3 L, BUN 48 H, Creatinine 2.13 H, Estim Creat Clear Calc 23.71, Est GFR (MDRD) Af Amer 38 L, Est GFR (MDRD) Non-Af 32 L, BUN/Creatinine Ratio 22.5 H , Glucose 112 H, Calcium 8.7, Total Bilirubin 0.40, AST 29, ALT 26, Alkaline Phosphatase 148 H, Troponin I High Sens 27.1, Total Protein 7.5, Albumin 2.4 L, Globulin 5.1 H, Albumin/Globulin Ratio 0.5 L 11/23/20 11:25: Lactic Acid 1.7 11/23/20 13:54: Urine Color Yellow, Urine Clarity Clear, Urine pH 5.0, Ur Specific [place] 1.015, Urine Protein Negative, Urine Glucose (UA) Normal, Urine Ketones Negative, Urine Occult Blood Negative, Urine Nitrite Negative, Urine Bilirubin Negative, Urine Urobilinogen Normal, Ur Leukocyte Esterase Negative, Urine RBC 0 SEEN, Urine WBC 0-5 SEEN, Ur Squamous Epith Cells 0-5 SEEN, Urine Bacteria RARE, Urine Mucus 0 SEEN 11/24/20 06:20: WBC 13.3 H, RBC 3.43 L, Hgb 9.7 L, Hct 31.0 L, MCV 90.4, MCH 28.3, MCHC 31.3 L, RDW Std Deviation 50.0 H, RDW Coeff of Juan 15.2 H, Plt Count 607 H, MPV 8.9, Immature Gran % (Auto) 1.400 H, Neut % (Auto) 67.7, Lymph % (Auto) 15.7 L, [place] % (Auto) 14.2 H, Eos % (Auto) 0.6, Baso % (Auto) 0.4, Absolute Neuts (auto) 9.0 H, Absolute Lymphs (auto) 2.08, Nucleated RBC % 0, Diff Path Review August11/24/20 06:20: Sodium 140, Potassium 3.7, Chloride 104, Carbon Dioxide 27.0, Anion Gap 9, BUN 44 H, Creatinine 1.61 H, Estim Creat Clear Calc 31.36, Est GFR (MDRD) Af Amer 53 L, Est GFR (MDRD) Non-Af 44 L, BUN/Creatinine Ratio 27.3 H, Glucose 120 H, Calcium 8.3 L, Magnesium 1.8 Micro: Microbiology 11/23/20 15:47 Mucosa - Nose SARS-CoV-2 Antigen (Rapid) - Final Radiography Diagnostic Testing: Radiology Impression Chest X-Ray 11/23/20 12:05 IMPRESSION: Normal x-ray examination of the chest. Electronically Signed: Bert Peterson MD at 12:53 EDT Tel , Service support , Physical Exam Const alert, oriented x3 and no apparent distress General Appearance: cooperative HEENT normocephalic and head/scalp atraumatic Eyes conjunctivae normal and no scleral icterus Eyes Narrative: No icterus Neck supple and no JVD Neck Narrative: No thyromegaly General: trachea midline Chest inspection of chest normal and palpation of chest normal Resp normal respiratory effort, normal air movement and clear to auscultation bilaterally Cardio regular rate, regular rhythm, S1 normal heart sound and S2 normal heart sound Peripheral Pulses: pulses 2+ throughout GI normal to inspection, nondistended, normoactive bowel sounds, soft to palpation and non-tender Extremity normal to inspection, full ROM, normal capillary refill and no clubbing, cyanosis or edema Extremity Narrative: Bilateral 2+ lower extremity edema. Skin Skin Narrative: Skin abrasions on right arm. Wound Narrative: Skin abrasions to right arm Neuro oriented x3, moves all extremities, no focal motor deficits and no sensory deficits noted Sensorium / Orientation: awake and alert Speech: speech normal Psych mental status grossly normal, thought process normal, cooperative, affect normal and speech normal Assessment & Plan Assessment/Plan (1) Acute kidney injury: (2) Weakness: PLAN: 1. Acute kidney injury -Creatinine improved to 1.61 today, will continue daily BMP to trend -Due to improvement with IV fluids and holding furosemide most likely source is prerenal from dehydration 2. Debility -Likely progression of patient's already debilitated state, as patient has histo ry of multiple falls and injuries. -PT/OT evaluate and treat -Discussed a group home facility with the patient and patient seems receptive. 3. Paroxysmal atrial fibrillation -Patient currently sinus rhythm upon review of telemetry -Eliquis and metoprolol 4. Hypothyroidism -Continue levothyroxine DVT prophylaxis: No pharmacological prophylaxis due to chronic anticoagulation Documented by User: Dr. Den Gomez DO 11/24/20 14:34 Objective Data Lab / Micro Data Result Diagrams: 11/24/20 06:20 11/24/20 06:20 Physical Exam Const alert General Appearance: cooperative and comfortable Eyes PERRL and EOMs intact bilaterally Neck no lymphadenopathy and no meningeal signs Chest inspection of chest normal Resp normal respiratory effort, normal air movement, no retractions and no use of accessory muscles Cardio regular rate, regular rhythm, S1 normal heart sound and S2 normal heart sound GI normal to inspection, nondistended, normoactive bowel sounds, non-tender and non-distended Extremity Extremity Narrative: edema in LE Neuro oriented x3 Sensorium / Orientation: awake and alert Assessment & Plan Assessment/Plan (1) Acute kidney injury: PLAN: 1. Acute kidney injury improved Creatinine 2.13, up from 1.38 on 11/10 Clinically, I suspect that this is likely prerenal Plan: Hold furosemide and give a liter of IV fluids and reevaluate. 2. Debility This is likely a progression the patient that is already debilitated using a walker and has just not been eating much over the past few days and is clinically dehydrated. PT OT evaluate and treat Did discuss a group home facility with the patient and his that that may be necessary. 3. Paroxysmal atrial fibrillation Currently in sinus rhythm. Continue with apixaban and metoprolol succinate 4. Hypothyroidism Stable Continue levothyroxine 5. VTE prophylaxis: Not indicated as patient is already on anticoagulation 6. Advanced directives: Discussed with the patient. Patient was to be full CODE STATUS at this time. 7. Dysphagia has had issues swallowing following his cervical spine surgery Discussed comfort feeds with modified diet v NPO and alternate means of nutrition (i.e., PEG). I discouraged PEG, he agrees. Start thickened liquids with pureed foods. Continue ST. Charges/Coding Visit Charges Inpatient E&M: 93341 Subs Hosp L3
[2020-11-24] MEDS: Menthol/Lanolin/Calamine/Znox 113 GM Tube 1 APPLIC TOPICAL ×2 (10:52→21:49)
[2020-11-24] MEDS: Nystatin Powder 15gm Bottle 1 APPLIC TOPICAL ×2 (10:52→21:48)
[2020-11-24 11:58] LABS: Pathologist Review Reviewed
[2020-11-24 11:59] LABS: Pathologist Review Reviewed
[2020-11-24] MEDS: Metoprolol(XL)Succ 50 MG Tablet PO ×2 (12:23→21:48)
[2020-11-24] MEDS: oxyCODONE 5 MG Tablet PO ×2 (12:23→21:46)
[2020-11-24] MEDS: Acetaminophen 500 MG Tablet PO ×2 (12:24→21:47)
[2020-11-24] MEDS: Oxybutynin 5 MG Tablet PO ×2 (12:24→21:48)
[2020-11-24] MEDS: Famotidine 20 MG Tablet PO (12:24)
--- NOTE | 2020-11-24 14:45 | CASEMGMT ---
Social Work Referral: Placement Referral Source: RN JACE. Met with patient in room. Introduced self and social work coordinator role. Patient is agreeable to speaking with this social work coordinator. This social work coordinator broached topic of [facility] placement for patient. Patient agrees that patient needs therapy. Therapy evaluations are currently pending BUT patient was unable to get up at home and has been using a walker for the past few days. Patient reports to have been independent prior. This social work coordinator provide patient with in-network nursing facilities in relationship to patient geographical region. Patient request TCU at [facility] to be first choice. Patient agreeable to this social work coordinator contacting patient spouse, Gabriella in regards to discharge plan pending therapy evaluations. Telephone call to Gabriella Quiroz updated on above information. Gabriella agreeable to discharge plan and also expresses concerns of patient being able to function in the home. Telephone call to [facility]. Referral made. No open beds until Saturday. Patient currently not medically cleared. Celia to place patient on list. Will continue to follow. Sarai BUTTS, MELISSA
--- NOTE | 2020-11-24 15:15 | CASEMGMT ---
Social Work Per therapy, patient requires intermediate home placement for strengthening and endurance. Will continue to follow for placement. Sarai Harris MSW, MAME-S
[2020-11-24] MEDS: APIXABAN 2.5 MG TABLET PO (21:48)
[2020-11-25] VITALS (13 sets, daily range): BP systolic 113–148; BP diastolic 57–80; PULSE 89–115; RESP 16–18; TEMP 36.8–37; O2SAT 93–98
[2020-11-25] MEDS: Levothyroxine 100 MCG Tablet 200 MCG PO (05:10)
[2020-11-25] MEDS: oxyCODONE 5 MG Tablet PO ×2 (10:26→21:16)
[2020-11-25] MEDS: Acetaminophen 500 MG Tablet PO ×2 (10:26→21:08)
[2020-11-25] MEDS: Metoprolol(XL)Succ 50 MG Tablet PO ×2 (10:26→21:08)
[2020-11-25] MEDS: Famotidine 20 MG Tablet PO (10:26)
[2020-11-25] MEDS: Oxybutynin 5 MG Tablet PO ×2 (10:27→21:08)
[2020-11-25] MEDS: Menthol/Lanolin/Calamine/Znox 113 GM Tube 1 APPLIC TOPICAL ×2 (10:27→21:09)
[2020-11-25] MEDS: APIXABAN 2.5 MG TABLET PO ×2 (10:27→21:08)
[2020-11-25] MEDS: Nystatin Powder 15gm Bottle 1 APPLIC TOPICAL ×2 (10:27→21:09)
--- NOTE | 2020-11-25 11:18 | PCM.CONS.P ---
Assessment & Plan Assessment/Plan (1) Acute kidney injury: (2) Debility: (3) Generalized weakness: (4) Atrial fibrillation: QUALIFIERS: Atrial fibrillation type: unspecified Qualified Code(s): I48.91 - Unspecified atrial fibrillation (5) GERD (gastroesophageal reflux disease): QUALIFIERS: Esophagitis presence: without esophagitis Qualified Code(s): K21.9 - Gastro-esophageal reflux disease without esophagitis (6) Sarcoidosis of lung: (7) Essential hypertension: (8) CRF (chronic renal failure): QUALIFIERS: Chronic kidney disease stage: stage 3 (moderate) Chronic kidney disease stage 3 subtype: stage 3b (GFR 30-44) Qualified Code(s): N18.32 - Chronic kidney disease, stage 3b (9) History of esophageal stricture: (10) Hyperglycemia: (11) Hypothyroidism: QUALIFIERS: Hypothyroidism type: postoperative Qualified Code(s): E89.0 - Postprocedural hypothyroidism (12) Osteoarthritis: QUALIFIERS: Osteoarthritis location: multiple joints Osteoarthritis type: unspecified Qualified Code(s): M15.9 - Polyosteoarthritis, unspecified (13) History of thyroid cancer: (14) Chronic steroid use: (15) Anemia: QUALIFIERS: Anemia type: unspecified type Qualified Code(s): D64.9 - Anemia, unspecified (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 Seen today for palliative care consultation regarding his weakness and chronic comorbid conditions. 1. Weakness and debility: He is participating in therapy and plans to go to TCU upon discharge. Then plans on returning home with his . Suggested palliative could assist with care coordination and close follow-up when he returns home with his . He states his handles most everything, so talk to her. Goals would be to reduce symptoms, improve overall quality of life, and avoid hospitalizations if possible. 2. Weight loss: Patient has very poor appetite. He is becoming weaker. Has some dysphagia issues and does not like altered diet. He will continue with speech therapy at this time. 3. Chronic back and neck pain: He has had surgery in the past. Follows with Dr. Taylor for pain management. He has oxycodone 5 mg twice daily scheduled here in the hospital. Defer management to Dr. Taylor. 4. OA/esophageal stricture/hypothyroidism/CKD stage III/HTN/sarcoidosis/chronic A. fib/anemia/history of thyroid cancer/chronic steroid use: Complicates overall care, management, recovery, and prognosis. Continue follow-up with PCP and specialist. We will assist with chronic symptom management as indicated. Patient would benefit from supportive care through palliative. Thank you for the opportunity to participate in this patient's care, please do not hesitate to contact [facility] with any further questions or concerns. Palliative direct line is [phone]. We will follow up after discharge and will discuss palliative services further at that time. Patient would like us to call his , Gabriella. A community health planning director will be in touch soon. Greater than 50% of F2F visit dedicated to education and counseling of palliative care services, medications, comorbid conditions and potential assistance with management, and plan of care moving forward. Start time: 1118 End time: 1150 HPI Consult Data Date of Consult: 11/25/20 HPI Narrative HPI Narrative: DEMETRIUS BURNS, is a 85 M who presents to [facility] 11/23/2020 with complaints of generalized weakness for several days. He was unable to get up out of his chair and could not care for him. Patient was just discharged 11/10 for sepsis pneumonia, as well as syncope with head contusion. He was ordered an event monitor at that time, however has not yet been utilized. Chest x-ray in the ED showed nothing acute. Patient was admitted to PCU for further evaluation and management of his weakness. He did have an YONIS. Patient has very poor appetite and has been dehydrated. He is a full code. Yesterday he was having increased neck pain. He has a history of cervical spine surgery with subsequent dysphagia. He is on thickened liquids and pur?ed foods and following with speech therapy. He has declined a PEG tube. [facility]. Patient lives with spouse in a two-story apartment, no steps to enter. States he is typically independent with his ADLs. He does not drive but is able to transport him to appointments. Patient follows with a formula clerk but unclear who that may be. Uses [facility] for pharmacy. Patient denies any N/V/D. Denies constipation or abdominal pain. Denies shortness of breath, cough, chest pain, sputum production. Says he wheezes on occasion. No dizziness or syncope since his last episode. States his appetite is pretty good. Eating better recently. Has some occasional numbness and tingling to his feet. He does have chronic lower extremity edema which is pitting. There is some discoloration and coolness to his legs, which is also chronic. Denies dysuria, does have some chronic frequency but takes oxybutynin. [facility] Medical History Abnormal EKG Anemia Atrial fibrillation Cancer Cat bite Chest pain Chronic pain Chronic steroid use CRF (chronic renal failure) Elevated serum creatinine Essential hypertension Former smoker GERD (gastroesophageal reflux disease) History of esophageal stricture History of thyroid cancer Hyperglycemia Hypothyroidism Irregular heart beat Osteoarthritis PAC (premature atrial contraction) Sarcoid arthropathy Sarcoidosis Sarcoidosis of lung Home Medications famotidine 20 mg tablet 40 mg PO DAILY tab 04/12/20 [History Last Taken 11/23/20] levothyroxine 200 mcg tablet 200 mcg PO DAILY 04/12/20 [History Last Taken 11/23/20] apixaban 2.5 mg tablet 2.5 mg PO BID 09/20/20 [History Last Taken Unknown] furosemide 20 mg tablet 20 mg PO DAILY PRN 09/20/20 [History Last Taken 11/23/20] metoprolol succinate 25 mg tablet,extended release 24 hr 25 mg PO BID 09/20/20 [History Last Taken 11/23/20] oxybutynin chloride 5 mg tablet 5 mg PO BID tab 09/20/20 [History Last Taken 11/23/20] acetaminophen [Tylenol Extra Strength] 500 mg PO BID 11/23/20 [History Last Taken 11/23/20] oxycodone 5 mg PO BID 11/23/20 [History Last Taken 11/23/20] Allergy/AdvReac Type Severity Reaction Status Date / Time No Known Allergies Allergy Verified 11/23/20 11:13 Family History Other CVA (cerebral vascular accident) Surgical History History of spinal surgery History of thyroidectomy S/P TURP (status post transurethral resection of prostate) Social History Smoking Status: Former smoker alcohol intake: current details: occasional substance use type: does not use caffeine: Yes Type: coffee Number of servings: 4 ROS ROS Narrative Review of systems otherwise negative from a constitutional, HEENT, respiratory, cardiovascular, GI, genitourinary, musculoskeletal, skin, neurologic, psychiatric and hematologic system unless stated above. Physical Exam Const alert and no apparent distress General Appearance: cooperative and frail Nutritional Appearance: cachectic HEENT normocephalic and head/scalp atraumatic Neck supple General: trachea midline Lymph Lymphatic: no lymphadenopathy noted Resp Effort and Inspection: able to speak in complete sentences and symmetric chest movement Auscultation: rhonchi and diminished lung sounds Cardio S1 normal heart sound and S2 normal heart sound Rate: tachycardic Rhythm: abnormal rhythm GI normal to inspection, nondistended, normoactive bowel sounds Back/Spine no CVA tenderness Cervical Spine: Negative for cervical ROM normal, cervical spine tenderness, paracervical muscle tenderness and trapevius muscle tenderness Extremity General Extremity: edema bilateral lower extremity (1-2+ pitting); Negative for cyanosis Skin General Skin Exam: no breakdown and dry skin; Negative for erythema Neuro CN's II-XII intact bilaterally and no focal motor deficits Psych mental status grossly normal, cooperative and affect normal Insight: fair
--- NOTE | 2020-11-25 13:08 | CASEMGMT ---
Social Work Telephone call [place] [facility] ( ) to initiate skilled services. Voicemail left. Clinical information faxed to . Will continue to follow. Sarai BUTTS, MELISSA
--- NOTE | 2020-11-25 13:33 | PN_ITS ---
Documented by User: Lisbeth Benitez NP-C 11/25/20 13:40 Subjective Subjective Patient seen and examined. Patient sitting in chair, no distress noted. Patient states he is having continued pain however this is chronic for him and does not report an increase in pain over his baseline. Objective Data Objective Data Vital Signs: Vital Signs Temp Pulse Resp BP Pulse Ox 98.3 F 107 H 18 120/68 95 11/25/20 12:14 11/25/20 12:14 11/25/20 12:14 11/25/20 12:14 11/25/20 12:14 Oxygen Flow Rate (L/min) 2 Oxygen Delivery Method Nasal Cannula Weight: 157 lb 3.033 oz Body Mass Index (BMI) 24.6 Intake & Output: Intake and Output for Last 24 Hours 11/23/20 11/24/20 11/25/20 23:59 23:59 23:59 Intake Total 1692.5 / 1692.5 960 / 960 1320 / 1320 Balance 1692.5 / 1692.5 960 / 960 1320 / 1320 Medical Nutrition Assessment Dietitian: Nutrition Therapy Diagnosis Start: 11/24/20 13:49 Freq: Status: Active Protocol: Document 11/24/20 13:49 RMA (Rec: 11/24/20 13:49 RMA [id number]) Nutrition Malnutrition Evidence of Malnutrition Exists Yes Malnutrition (severe): Chronic Evidenced By Suboptimal Energy Intake ( Severe),Weight Loss (Severe), Physical Changes (Moderate) Clinical Problem Chronic Disease or Condition Related Malnutrition Etiology severe protein-calorie malnutrition in the context of chronic disease r/t inadequate oral intake d/t swallowing difficulty and advanced age/debility Signs/Symptoms as evidenced by pt meeting </= 50% of estimated energy needs x3-4 month, unintentional weight loss of 16% x3-4 month. Status Active Problem Recommendation Dietitian Recommendations/Changes Continue regular/general diet. Consistency per [employer], currently pureed with honey thick liquids. Continue ensure enlive 120mL PO 4x/day at [facility] (provides 700 calories, 40g protein). Add ensure pudding BID at lunch and dinner (340 calories , 8g protein). Assess need for Lonnie pending further staging of wounds. Susu Mendoza MS, RDN, LD Lab / Micro Data Result Diagrams: 11/24/20 06:20 11/24/20 06:20 Micro: Microbiology 11/23/20 11:25 Blood Culture (Wb) - Anticubital Right Blood Culture - Preliminary No growth in 48 hours. 11/23/20 12:00 Blood Culture (Wb) - Anticubital Left Blood Culture - Preliminary No growth in 48 hours. 11/23/20 15:47 Mucosa - Nose SARS-CoV-2 Antigen (Rapid) - Final Physical Exam Const alert, oriented x3 and no apparent distress General Appearance: cooperative and comfortable HEENT normocephalic and head/scalp atraumatic Eyes PERRL, EOMs intact bilaterally, conjunctivae normal and no scleral icterus Eyes Narrative: No icterus Neck no lymphadenopathy, supple, no meningeal signs and no JVD Neck Narrative: No thyromegaly General: trachea midline Chest inspection of chest normal and palpation of chest normal Resp normal respiratory effort, normal air movement, no retractions, no use of accessory muscles and clear to auscultation bilaterally Cardio regular rate, regular rhythm, S1 normal heart sound and S2 normal heart sound Peripheral Pulses: pulses 2+ throughout GI normal to inspection, nondistended, normoactive bowel sounds, soft to palpation, non-tender and non-distended Extremity normal to inspection, full ROM, normal capillary refill and no clubbing, cyanosis or edema Extremity Narrative: edema in LE Skin Skin Narrative: Skin abrasions on right arm. Wound Narrative: Skin abrasions to right arm Neuro oriented x3, moves all extremities, no focal motor deficits and no sensory deficits noted Sensorium / Orientation: awake and alert Speech: speech normal Psych mental status grossly normal, thought process normal, cooperative, affect normal and speech normal Assessment & Plan Assessment/Plan (1) Weakness: (2) Acute kidney injury: PLAN: 1. Acute kidney injury -Due to improvement with IV fluids and holding furosemide most likely source is prerenal from dehydration -Continue to hold Lasix 2. Debility -Likely progression of patient's already debilitated state, as patient has history of multiple falls and injuries. -PT/OT continue to treat -Discussed a residential facility with the patient and patient seems receptive. plan is for patient to be discharged to TCU on Saturday due to bed availability. 3. Paroxysmal atrial fibrillation -Patient currently sinus rhythm upon review of telemetry -Eliquis and metoprolol 4. Hypothyroidism -Continue levothyroxine DVT prophylaxis: No pharmacological prophylaxis due to chronic anticoagulation Documented by User: Dr. Den Gomez, DO 11/25/20 14:26 Subjective Subjective Patient not doing well with speech therapy. They still express concerned because he is aspirating we will with the thickened liquids. Objective Data Lab / Micro Data Result Diagrams: 11/24/20 06:20 11/24/20 06:20 Physical Exam Narrative Hypophonia. Afebrile. Resp normal respiratory effort Resp Narrative: Right lower lobe crackles Cardio regular rate, regular rhythm, S1 normal heart sound and S2 normal heart sound GI normal to inspection, nondistended, normoactive bowel sounds, non-tender and non-distended Extremity General Extremity: edema Assessment & Plan Assessment/Plan (1) Weakness: (2) Acute kidney injury: PLAN: 1. Acute kidney injury improved Creatinine 2.13, up from 1.38 on 11/10 Clinically, I suspect that this is likely prerenal Plan: Hold furosemide and give a liter of IV fluids and reevaluate. 2. Debility This is likely a progression the patient that is already debilitated using a walker and has just not been eating much over the past few days and is c linically dehydrated. PT OT evaluate and treat Did discuss a residential facility with the patient and his that that may be necessary. 3. Paroxysmal atrial fibrillation Currently in sinus rhythm. Continue with apixaban and metoprolol succinate 4. Hypothyroidism Stable Continue levothyroxine 5. VTE prophylaxis: Not indicated as patient is already on anticoagulation 6. Advanced directives: Discussed with the patient. Patient was to be full CODE STATUS at this time. 7. Dysphagia has had issues swallowing following his cervical spine surgery Discussed comfort feeds with modified diet v NPO and alternate means of nutrition (i.e., PEG). I discouraged PEG, he agrees. Start thickened liquids with pureed foods. Continue ST. Advanced care planning: Spent greater than 50 minutes discussing with the patient about advance directives including full code and DNR Comfort Care arrest. Trained the patient that if he is having cover feeds that he is can to be at ongoing risk for aspiration and higher likelihood of cardiac arrest. I did tell the patient that I am not concerned acutely about cardiac arrest but certainly in the future as there is no clear reason from my standpoint that he has this dysphagia. I strongly discouraged CPR as I do not feel that he would survive it and if he were to survive it he still can have a swallowing issues any degree profoundly weaker. He does not have a definitive answer but I did encourage him to speak with his family. Charges/Coding Visit Charges Inpatient E&M: 50737 Subs Hosp L2 Procedures Hospitalists Procedures: 24888 Advncd Care Plan 30 Min
--- NOTE | 2020-11-25 14:31 | CASEMGMT ---
Social Work Telephone call from [facility] at [facility]. Lulú provided this social services assistant with temporary auth#[id number]. Per Lulú temp. auth is good until Saturday (11/29/2020) and patient is able to transition to SNF if medically cleared prior to Saturday. Telephone call to TCU, [facility]. Celia updated on above information. TCU is able to accept patient Saturday but not before. Will continue to follow. Sarai BUTTS, MELISSA
[2020-11-25] MEDS: 0.9% Saline Lock 10 ML Syringe IV (16:24)
[2020-11-26] VITALS (13 sets, daily range): BP systolic 114–126; BP diastolic 61–72; PULSE 99–121; RESP 16–18; TEMP 36.6–37.3; O2SAT 92–96
[2020-11-26] MEDS: Levothyroxine 100 MCG Tablet 200 MCG PO (05:46)
[2020-11-26 06:10] LABS: Absolute Lymphocyte Count 2.17 X10^3/uL (0.83-4.51); Absolute Neutrophil Count 13.1 X10^3/uL (2.0-7.7); Basophil# 0.07 X10^3/uL; Basophil% 0.4 % (0-1); Eosinophil# 0.22 X10^3/uL; Eosinophils% 1.3 % (0-5); Hematocrit 34.5 % (40-54); Hemoglobin 10.5 g/dL (13.0-16.5); Lymphocyte # 2.17 X10^3/ul (0.83-4.51); Lymphocyte % 12.6 % (19-41); Mean Corp Hgb Conc 30.4 g/dL (32-36); Mean Corpuscular Hgb 28.2 pg (27.0-32.0); Mean Corpuscular Volume 92.7 fL (80-94); Mean Platelet Vol. 8.7 fl (6.2-12.0); Monocyte% 8.2 % (0-10); NRBC Flagged by Analyzer 0 % (0-5); Neutrophil # 13.05 X10^3/uL (2.7-7.7); Platelet Count 679 K/mm3 (150-450); RBC Distribution Width CV 15.2 % (11.6-14.6); RBC Distribution Width SD 51.7 fl (35.1-43.9); Red Blood Count 3.72 M/mm3 (4.6-6.2); White Blood Count 17.2 K/mm3 (4.4-11.0)
[2020-11-26 06:55] LABS: Anion Gap 7 (5-15); BUN 46 mg/dL (7-18); BUN/Creat Ratio 25.6 RATIO (10-20); Calcium,Total 8.6 mg/dL (8.5-10.1); Chloride 103 mmol/L (98-107); EST Glomerular Filtration Rate 38 mL/min (>60); Est Glom Filt Rate - Afr Amer 46 mL/min (>60); Estimated Creatinine Clearance 28.05 ml/min; Glucose 149 mg/dL (74-106); Potassium 3.7 mmol/L (3.5-5.1); Sodium Level 139 mmol/L (136-145)
[2020-11-26] MEDS: Metoprolol(XL)Succ 50 MG Tablet PO ×2 (09:25→20:59)
[2020-11-26] MEDS: APIXABAN 2.5 MG TABLET PO ×2 (09:25→21:00)
[2020-11-26] MEDS: Nystatin Powder 15gm Bottle 1 APPLIC TOPICAL ×2 (09:26→20:59)
[2020-11-26] MEDS: Famotidine 20 MG Tablet PO (09:26)
[2020-11-26] MEDS: Oxybutynin 5 MG Tablet PO ×2 (09:26→21:00)
[2020-11-26] MEDS: Acetaminophen 500 MG Tablet PO ×2 (09:27→20:59)
[2020-11-26] MEDS: Menthol/Lanolin/Calamine/Znox 113 GM Tube 1 APPLIC TOPICAL ×2 (09:27→20:59)
[2020-11-26] MEDS: oxyCODONE 5 MG Tablet PO ×2 (09:33→21:00)
--- NOTE | 2020-11-26 10:19 | PN_ITS ---
Documented by User: Lisbeth Benitez NP-C 11/26/20 10:26 Subjective Subjective Patient seen and examined. Patient sitting in bed no distress noted. Patient denies complaints other than chronic pain. Discussed plan of care with patient regarding going to TCU on Saturday and patient was agreeable. Objective Data Objective Data Vital Signs: Vital Signs Temp Pulse Resp BP Pulse Ox 98.5 F 107 H 18 125/61 H 92 11/26/20 09:20 11/26/20 09:25 11/26/20 09:20 11/26/20 09:25 11/26/20 09:20 Oxygen Flow Rate (L/min) 2 Oxygen Delivery Method Room Air Weight: 157 lb 3.033 oz Body Mass Index (BMI) 24.6 Intake & Output: Intake and Output for Last 24 Hours 11/24/20 11/25/20 11/26/20 23:59 23:59 23:59 Intake Total 960 / 960 1720 / 1720 Balance 960 / 960 1720 / 1720 Medical Nutrition Assessment Dietitian: Nutrition Therapy Diagnosis Start: 11/24/20 13:49 Freq: Status: Active Protocol: Document 11/24/20 13:49 RMA (Rec: 11/24/20 13:49 RMA [id number]) Nutrition Malnutrition Evidence of Malnutrition Exists Yes Malnutrition (severe): Chronic Evidenced By Suboptimal Energy Intake ( Severe),Weight Loss (Severe), Physical Changes (Moderate) Clinical Problem Chronic Disease or Condition Related Malnutrition Etiology severe protein-calorie malnutrition in the context of chronic disease r/t inadequate oral intake d/t swallowing difficulty and advanced age/debility Signs/Symptoms as evidenced by pt meeting </= 50% of estimated energy needs x3-4 month, unintentional weight loss of 16% x3-4 month. Status Active Problem Recommendation Dietitian Recommendations/Changes Continue regular/general diet. Consistency per [employer], currently pureed with honey thick liquids. Continue ensure enlive 120mL PO 4x/day at [facility] (provides 700 calories, 40g protein). Add ensure pudding BID at lunch and dinner (340 calories , 8g protein). Assess need for Lonnie pending further staging of wounds. Susu Mendoza MS, RDN, LD Lab / Micro Data Result Diagrams: 11/26/20 05:46 11/26/20 05:46 Labs: Laboratory Results - last 24 hr 11/26/20 05:46: WBC 17.2 H, RBC 3.72 L, Hgb 10.5 L, Hct 34.5 L, MCV 92.7, MCH 28.2, MCHC 30.4 L, RDW Std Deviation 51.7 H, RDW Coeff of Juan 15.2 H, Plt Count 679 H, MPV 8.7, Immature Gran % (Auto) 1.500 H, Neut % (Auto) 76.0 H, Lymph % (Auto) 12.6 L, [place] % (Auto) 8.2, Eos % (Auto) 1.3, Baso % (Auto) 0.4, Absolute Neuts (auto) 13.1 H, Absolute Lymphs (auto) 2.17, Nucleated RBC % 0 11/26/20 05:46: Sodium 139, Potassium 3.7, Chloride 103, Carbon Dioxide 29.0, Anion Gap 7, BUN 46 H, Creatinine 1.80 H, Estim Creat Clear Calc 28.05, Est GFR (MDRD) Af Amer 46 L, Est GFR (MDRD) Non-Af 38 L, BUN/Creatinine Ratio 25.6 H, Glucose 149 H, Calcium 8.6 Micro: Microbiology 11/23/20 11:25 Blood Culture (Wb) - Anticubital Right Blood Culture - Preliminary No growth in 48 hours. 11/23/20 12:00 Blood Culture (Wb) - Anticubital Left Blood Culture - Preliminary No growth in 48 hours. 11/23/20 15:47 Mucosa - Nose SARS-CoV-2 Antigen (Rapid) - Final Physical Exam Narrative Hypophonia. Afebrile. Const alert, oriented x3 and no apparent distress General Appearance: cooperative and comfortable HEENT normocephalic and head/scalp atraumatic Eyes conjunctivae normal and no scleral icterus Eyes Narrative: No icterus Neck no lymphadenopathy, supple, no meningeal signs and no JVD Neck Narrative: No thyromegaly General: trachea midline Chest inspection of chest normal and palpation of chest normal Resp normal respiratory effort, normal air movement, no retractions and no use of accessory muscles Resp Narrative: Right lower lobe crackles Auscultation: diminished lung sounds diffuse Cardio regular rate, regular rhythm, S1 normal heart sound and S2 normal heart sound Peripheral Pulses: pulses 2+ throughout GI normal to inspection, nondistended, normoactive bowel sounds, soft to palpation, non-tender and non-distended Extremity normal to inspection, full ROM, normal capillary refill and no clubbing, cy anosis or edema Extremity Narrative: edema in LE General Extremity: edema Skin Skin Narrative: Skin abrasions on right arm. Wound Narrative: Skin abrasions to right arm Neuro oriented x3, moves all extremities, no focal motor deficits and no sensory deficits noted Sensorium / Orientation: awake and alert Speech: speech normal Psych mental status grossly normal, thought process normal, cooperative, affect normal and speech normal Assessment & Plan Assessment/Plan (1) Weakness: (2) Acute kidney injury: PLAN: 1. Acute kidney injury -Creatinine slightly increased today 1.61 to 1.80 will continue to monitor with daily BMP -Continue to hold Lasix 2. Debility -Likely progression of patient's already debilitated state, as patient has history of multiple falls and injuries. -PT/OT continue to treat -Discussed a long-term facility with the patient and patient seems receptive. plan is for patient to be discharged to TCU on Saturday due to bed availability. 3. Paroxysmal atrial fibrillation -Patient currently sinus rhythm upon review of telemetry -Continue Eliquis and metoprolol 4. Hypothyroidism -Continue levothyroxine DVT prophylaxis: No pharmacological prophylaxis due to chronic anticoagulation Documented by User: Dr. Den Gomez DO 11/26/20 12:13 Objective Data Lab / Micro Data Result Diagrams: 11/26/20 05:46 11/26/20 05:46 Assessment & Plan Assessment/Plan (1) Acute kidney injury: Charges/Coding Addendum Addendum: Patient seen and examined independently. Data reviewed. I agree with the above note by the nurse practitioner. No new events per the patient. No acute distress and afebrile. Heart rate regular rate and rhythm plus S1-S2 with a murmurs Rubs. Lungs Are Clear to Auscultation Bilaterally. Bilateral Lower Extremity Edema. Hypophonia. [facility] [id number] [place] [address] Progress Note11/25/20 1333MR#: [id number]:[id number]:DEMETRIUS BURNS [facility] #:[id number]: [id number]: Lisbeth Benitez [employer]-CPCP:Dr. Angeline Batista MD Status:ADM IN Location: [place] [address] Documented by User: Lisbeth Benitez NP-C 11/25/20 13:40 Subjective Subjective Patient seen and examined. Patient sitting in chair, no distress noted. Patient states he is having continued pain however this is chronic for him and does not report an increase in pain over his baseline. Objective Data Objective Data Vital Signs: Vital Signs Temp Pulse Resp BP Pulse Ox 98.3 F 107 H 18 120/68 95 11/25/20 12:14 11/25/20 12:14 11/25/20 12:14 11/25/20 12:14 11/25 12:14 Oxygen Flow Rate (L/min) 2 Oxygen Delivery Method Nasal Cannula Weight: 157 lb 3.033 oz Body Mass Index (BMI) 24.6 Intake & Output:Intake and Output for Last 24 Hours 11/23/20 11/24/20 11/25/20 23:59 23:59 23:59 Intake Total 1692.5 / 1692.5 960 / 960 1320 / 1320 Balance 1692.5 / 1692.5 960 / 960 1320 / 1320 Medical Nutrition Assessment Dietitian: Nutrition Therapy Diagnosis Start: 11/24/20 13:49 Freq: Status: Active Protocol: Document 11/24/20 13:49 RMA (Rec: 11/24/20 13:49 RMA [id number]) Nutrition Malnutrition Evidence of Malnutrition Exists Yes Malnutrition (severe): Chronic Evidenced By Suboptimal Energy Intake ( Severe),Weight Loss (Severe), Physical Changes (Moderate) Clinical Problem Chronic Disease or Condition Related Malnutrition Etiology severe protein-calorie malnutrition in the context of chronic disease r/t inadequate oral intake d/t swallowing difficulty and advanced age/debility Signs/Symptoms as evidenced by pt meeting </= 50% of estimated energy needs x3-4 month, unintentional weight loss of 16% x3-4 month. Status Active Problem Recommendation Dietitian Recommendations/Changes Continue regular/general diet. Consistency per [employer], currently pureed with honey thick liquids. Continue ensure enlive 120mL PO 4x/day at [facility] (provides 700 calories, 40g protein). Add ensure pudding BID at lunch and dinner (340 calories , 8g protein). Assess need for Lonnie pending further staging of wounds. Susu Mendoza MS, RDN, LD Lab / Micro Data Result Diagrams: 11/24/20 06:20 document embedded image 11/24/20 06:20 document embedded image Micro:Microbiology 11/23/20 11:25 Blood Culture (Wb) - Anticubital Right Blood Culture - Preliminary No growth in 48 hours. 11/23/20 12:00 Blood Culture (Wb) - Anticubital Left Blood Culture - Preliminary No growth in 48 hours. 11/23/20 15:47 Mucosa - Nose SARS-CoV-2 Antigen (Rapid) - Final Physical Exam Const alert, oriented x3 and no apparent distress General Appearance: cooperative and comfortable HEENT normocephalic and head/scalp atraumatic Eyes PERRL, EOMs intact bilaterally, conjunctivae normal and no scleral icterus Eyes Narrative: No icterus Neck no lymphadenopathy, supple, no meningeal signs and no JVD Neck Narrative: No thyromegaly General: trachea midline Chest inspection of chest normal and palpation of chest normal Resp normal respiratory effort, normal air movement, no retractions, no use of accessory muscles and clear to auscultation bilaterally Cardio regular rate, regular rhythm, S1 normal heart sound and S2 normal heart sound Peripheral Pulses: pulses 2+ throughout GI normal to inspection, nondistended, normoactive bowel sounds, soft to palpation, non-tender and non-distended Extremity normal to inspection, full ROM, normal capillary refill and no clubbing, cyanosis or edema Extremity Narrative: edema in LE Skin Skin Narrative: Skin abrasions on right arm. Wound Narrative: Skin abrasions to right arm Neuro oriented x3, moves all extremities, no focal motor deficits and no sensory deficits noted Sensorium / Orientation: awake and alert Speech: speech normal Psych mental status grossly normal, thought process normal, cooperative, affect normal and speech normal Assessment & Plan Assessment/Plan (1) Weakness: (2) Acute kidney injury: PLAN: 1. Acute kidney injury -Due to improvement with IV fluids and holding furosemide most likely source is prerenal from dehydration -Continue to hold Lasix 2. Debility -Likely progression of patient's already debilitated state, as patient has history of multiple falls and injuries. -PT/OT continue to treat -Discussed a long-term facility with the patient and patient seems receptive. plan is for patient to be discharged to TCU on Saturday due to bed availability. 3. Paroxysmal atrial fibrillation -Patient currently sinus rhythm upon review of telemetry -Eliquis and metoprolol 4. Hypothyroidism -Continue levothyroxine DVT prophylaxis: No pharmacological prophylaxis due to chronic anticoagulation Documented by User: Dr. Den Gomez, 11/25/20 14:26 Subjective Subjective Patient not doing well with speech therapy. They still express concerned because he is aspirating we will with the thickened liquids. Objective Data Lab / Micro Data Result Diagrams: 11/24/20 06:20 document embedded image 11/24/20 06:20 document embedded image Physical Exam Narrative Hypophonia. Afebrile. Resp normal respiratory effort Resp Narrative: Right lower lobe crackles Cardio regular rate, regular rhythm, S1 normal heart sound and S2 normal heart sound GI normal to inspection, nondistended, normoactive bowel sounds, non-tender and non-distended Extremity General Extremity: edema Assessment & Plan Assessment/Plan (1) Weakness: (2) Acute kidney injury: PLAN: 1. Acute kidney injury improved Creatinine 1.8, up from 1.38 on 11/10 Clinically, I suspect that this is likely prerenal 2. Debility This is likely a progression the patient that is already debilitated using a walker and has just not been eating much over the past few days and is clinically dehydrated. PT OT evaluate and treat SNF 3. Paroxysmal atrial fibrillation Currently in sinus rhythm. Continue with apixaban and metoprolol succinate 4. Hypothyroidism Stable Continue levothyroxine 5. VTE prophylaxis: Not indicated as patient is already on anticoagulation 6. Advanced directives: Discussed with the patient. Patient was to be full CODE STATUS at this time. 7. Dysphagia has had issues swallowing following his cervical spine surgery Discussed comfort feeds with modified diet v NPO and alternate means of nutrition (i.e., PEG). I discouraged PEG, he agrees. Start thickened liquids with pureed foods. Continue ST. Multi Select Codes Visit Charges Visit Charges: 87476 Subs Hosp L2
[2020-11-27] VITALS (12 sets, daily range): BP systolic 112–131; BP diastolic 61–71; PULSE 100–112; RESP 16–18; TEMP 37–37.6; O2SAT 93–97
[2020-11-27] MEDS: 0.9% Saline Lock 10 ML Syringe IV ×2 (04:50→19:58)
[2020-11-27] MEDS: HYDROmorphone 0.5 MG/0.5 ML SYRINGE IV (04:50)
[2020-11-27] MEDS: Levothyroxine 100 MCG Tablet 200 MCG PO (04:50)
[2020-11-27 06:39] LABS: Absolute Lymphocyte Count 1.91 X10^3/uL (0.83-4.51); Absolute Neutrophil Count 10.8 X10^3/uL (2.0-7.7); Basophil# 0.06 X10^3/uL; Basophil% 0.4 % (0-1); Eosinophil# 0.15 X10^3/uL; Hematocrit 32.8 % (40-54); Hemoglobin 10.1 g/dL (13.0-16.5); Lymphocyte # 1.91 X10^3/ul (0.83-4.51); Lymphocyte % 12.8 % (19-41); Mean Corp Hgb Conc 30.8 g/dL (32-36); Mean Corpuscular Hgb 28.4 pg (27.0-32.0); Mean Corpuscular Volume 92.1 fL (80-94); Monocyte# 1.72 X10^3/uL; Monocyte% 11.5 % (0-10); NRBC Flagged by Analyzer 0 % (0-5); Neutrophil # 10.81 X10^3/uL (2.7-7.7); Neutrophil % 72.5 % (47-70); POSITIVE DIFFERENTIAL YES; Platelet Count 631 K/mm3 (150-450); RBC Distribution Width CV 15.2 % (11.6-14.6); RBC Distribution Width SD 51.8 fl (35.1-43.9); Red Blood Count 3.56 M/mm3 (4.6-6.2); White Blood Count 14.9 K/mm3 (4.4-11.0)
[2020-11-27 06:41] LABS: Differential Indicated SCAN CRITERIA MET
[2020-11-27 07:04] LABS: Anion Gap 7 (5-15); BUN 65 mg/dL (7-18); BUN/Creat Ratio 28.4 RATIO (10-20); Calcium,Total 8.6 mg/dL (8.5-10.1); Chloride 104 mmol/L (98-107); Creatinine, Serum 2.29 mg/dL (0.70-1.30); EST Glomerular Filtration Rate 29 mL/min (>60); Est Glom Filt Rate - Afr Amer 35 mL/min (>60); Estimated Creatinine Clearance 22.05 ml/min; Glucose 132 mg/dL (74-106); Potassium 4.1 mmol/L (3.5-5.1); Sodium Level 140 mmol/L (136-145)
[2020-11-27] MEDS: Menthol/Lanolin/Calamine/Znox 113 GM Tube 1 APPLIC TOPICAL ×2 (08:56→22:00)
[2020-11-27] MEDS: Oxybutynin 5 MG Tablet PO ×2 (08:57→22:01)
[2020-11-27] MEDS: APIXABAN 2.5 MG TABLET PO ×2 (08:57→22:02)
[2020-11-27] MEDS: Acetaminophen 500 MG Tablet PO (08:58)
[2020-11-27] MEDS: Metoprolol(XL)Succ 50 MG Tablet PO ×2 (08:58→22:01)
[2020-11-27] MEDS: Famotidine 20 MG Tablet PO (08:58)
[2020-11-27] MEDS: oxyCODONE 5 MG Tablet PO (09:01)
[2020-11-27] MEDS: Nystatin Powder 15gm Bottle 1 APPLIC TOPICAL ×2 (09:01→22:03)
--- NOTE | 2020-11-27 14:29 | PCM.PN.HOSP ---
Subjective Subjective somnolent today, but did receive oxycodone. Objective Data Objective Data Vital Signs: Vital Signs Temp Pulse Resp BP Pulse Ox 37.6 C H 112 H 17 112/62 93 11/27/20 08:53 11/27/20 11:37 11/27/20 08:53 11/27/20 08:58 11/27/20 08:53 Oxygen Flow Rate (L/min) 2 Oxygen Delivery Method Room Air Weight: 71.3 kg Body Mass Index (BMI) 24.6 Intake & Output: Intake and Output for Last 24 Hours 11/25/20 11/26/20 11/27/20 23:59 23:59 23:59 Intake Total 1720 / 1720 360 / 360 Balance 1720 / 1720 360 / 360 Medical Nutrition Assessment Dietitian: Nutrition Therapy Diagnosis Start: 11/24/20 13:49 Freq: Status: Active Protocol: Document 11/24/20 13:49 RMA (Rec: 11/24/20 13:49 RMA [id number]) Nutrition Malnutrition Evidence of Malnutrition Exists Yes Malnutrition (severe): Chronic Evidenced By Suboptimal Energy Intake ( Severe),Weight Loss (Severe), Physical Changes (Moderate) Clinical Problem Chronic Disease or Condition Related Malnutrition Etiology severe protein-calorie malnutrition in the context of chronic disease r/t inadequate oral intake d/t swallowing difficulty and advanced age/debility Signs/Symptoms as evidenced by pt meeting </= 50% of estimated energy needs x3-4 month, unintentional weight loss of 16% x3-4 month. Status Active Problem Recommendation Dietitian Recommendations/Changes Continue regular/general diet. Consistency per [employer], currently pureed with honey thick liquids. Continue ensure enlive 120mL PO 4x/day at [facility] (provides 700 calories, 40g protein). Add ensure pudding BID at lunch and dinner (340 calories , 8g protein). Assess need for Lonnie pending further staging of wounds. Susu Mendoza MS, RDN, LD Lab / Micro Data Result Diagrams: 11/27/20 05:54 11/27/20 05:54 Labs: Laboratory Results - last 24 hr 11/27/20 05:54: WBC 14.9 H, RBC 3.56 L, Hgb 10.1 L, Hct 32.8 L, MCV 92.1, MCH 28.4, MCHC 30.8 L, RDW Std Deviation 51.8 H, RDW Coeff of Juan 15.2 H, Plt Count 631 H, MPV 9.0, Immature Gran % (Auto) 1.800 H, Neut % (Auto) 72.5 H, Lymph % (Auto) 12.8 L, [place] % (Auto) 11.5 H, Eos % (Auto) 1.0, Baso % (Auto) 0.4, Absolute Neuts (auto) 10.8 H, Absolute Lymphs (auto) 1.91, Nucleated RBC % 0, Diff Path Review August foll 11/27/20 05:54: Sodium 140, Potassium 4.1, Chloride 104, Carbon Dioxide 29.0, Anion Gap 7, BUN 65 H, Creatinine 2.29 H, Estim Creat Clear Calc 22.05, Est GFR (MDRD) Af Amer 35 L, Est GFR (MDRD) Non-Af 29 L, BUN/Creatinine Ratio 28.4 H, Glucose 132 H, Calcium 8.6 Micro: Microbiology 11/23/20 11:25 Blood Culture (Wb) - Anticubital Right Blood Culture - Preliminary No growth in 48 hours. 11/23/20 12:00 Blood Culture (Wb) - Anticubital Left Blood Culture - Preliminary No growth in 48 hours. 11/23/20 15:47 Mucosa - Nose SARS-CoV-2 Antigen (Rapid) - Final Physical Exam Const Constitutional Narrative: groggy. afebrile. opens eyes to voice, but quickly dozes off. Resp normal respiratory effort, no retractions, no use of accessory muscles and clear to auscultation bilaterally Cardio S1 normal heart sound and S2 normal heart sound Cardio Narrative: tachycardic GI normal to inspection, nondistended, normoactive bowel sounds, soft to palpation, non-tender and non-distended Extremity Extremity Narrative: 2+ LE edema Assessment & Plan Assessment/Plan (1) Acute kidney injury: PLAN: 1. Acute kidney injury worse again Clinically, I suspect that this is likely prerenal Will give IVF and recheck 2. Debility This is likely a progression the patient that is already debilitated using a walker and has just not been eating much over the past few days and is clinically dehydrated. PT OT evaluate and treat SNF 3. Paroxysmal atrial fibrillation Currently tachycardic Continue with apixaban and metoprolol succinate 4. Hypothyroidism Stable Continue levothyroxine 5. VTE prophylaxis: Not indicated as patient is already on anticoagulation 6. Advanced directives: Discussed with the patient. Patient was to be full CODE STATUS at this time. 7. Dysphagia has had issues swallowing following his cervical spine surgery Discussed comfort feeds with modified diet v NPO and alternate means of nutrition (i.e., PEG). I discouraged PEG, he agrees. Start thickened liquids with pureed foods. Continue ST. Prognosis: overall guarded to poor. Charges/Coding Visit Charges Inpatient E&M: 45699 Subs Hosp L2
[2020-11-27] MEDS: 0.9% Normal Saline 1,000 ML 150 ML IV (15:37)
[2020-11-28] VITALS (12 sets, daily range): BP systolic 107–126; BP diastolic 62–87; PULSE 101–124; RESP 16–20; TEMP 36.6–38.1; O2SAT 93–99
--- NOTE | 2020-11-28 00:59 | EKG12_ITS ---
Test Reason : MILD CP Blood Pressure : / mmHG Vent. Rate : 113 BPM Atrial Rate : 113 BPM P-R Int : 160 ms QRS Dur : 082 ms QT Int : 314 ms P-R-T Axes : 029 027 026 degrees QTc Int : 430 ms Sinus tachycardia with Premature atrial complexes Otherwise normal ECG When compared with ECG of 23-NOV-2020 11:27, MANUAL COMPARISON REQUIRED, DATA IS UNCONFIRMED Confirmed by SAMANTHA BERG, MARILY ([id number]), publications editor JANETT AMBRIZ ([id number]) on 11/30/2020 2:01:37 PM Referred By: DR SANTOS Confirmed By:LALIT SINGH MD
[2020-11-28] MEDS: Acetaminophen 500 MG Tablet PO ×3 (01:06→19:55)
--- NOTE | 2020-11-28 01:20 | NURSING ---
Dr Casper was notified of pt c/o chest pain 06/29 and vital signs. Order for chest x-ray and UA received.
--- NOTE | 2020-11-28 01:33 | RAD_ITS ---
EXAM: XR CHEST, 1 VIEW : 1935 CLINICAL INDICATION: fever, SOB TECHNIQUE: Frontal view of the chest. This report was created using [employer] report generation technology. COMPARISON: 11/23/20 FINDINGS: LUNGS AND PLEURAL SPACES: Right upper and left lower lobe airspace disease. No pneumothorax. No effusion. HEART: Unremarkable. Cardiac silhouette not enlarged. MEDIASTINUM: Central airways and mediastinal contour are unremarkable. BONES/JOINTS: Unremarkable. SOFT TISSUES: Unremarkable. RAD/Chest 1 View (Portable) IMPRESSION: Right upper and left lower lobe airspace disease. Findings may indicate pneumonia. at 0309 Reported and signed by: Rene De Luna MD Electronically Signed: Rene De Luna MD at 3:08 EDT Tel , Service support ,
[2020-11-28 02:21] LABS: Mucous, Urine 0 SEEN /hpf (<or=2+); Squamous Epithelial Cells - UA 0 SEEN /hpf (0-5)
--- NOTE | 2020-11-28 02:22 | NURSING ---
Straight catheterized pt to obtain urine sample. Drained 700 ml cloudy foul smelling urine. Pt states he feels much better.
[2020-11-28 02:24] LABS: Color, Urine Yellow (Yellow); Glucose, Dipstick Normal (Normal); Ketone-Dipstick Negative (Negative); Leukocyte Esterase-Dipstick 500 /ul (Negative); Nitrite-Dipstick Negative (Negative); Occult Blood-Urine 150 /ul (Negative); Protein-Dipstick 30 mg/dl (Negative); Specific Gravity, Urine 1.015 (1.002-1.030); Urine Bilirubin Dipstick Negative (Negative); Urine Clarity Cloudy (Clear); Urine Urobilinogen Normal (Normal)
[2020-11-28 02:32] LABS: Bacteria 2+ /hpf (None Seen); White Blood Cells >100 SEEN /hpf (0-5)
[2020-11-28 02:33] LABS: Red Blood Cells-Urine 0-5 SEEN /hpf (0-5)
--- NOTE | 2020-11-28 03:07 | PCM.PN.BLA ---
Progress Note Informed of patient's fever as well as tachycardia. He complains of chest pain. EKG shows sinus tachycardia UA suggestive of UTI. We will get blood cultures; would also get chest x-ray Start on IV ceftriaxone
[2020-11-28] MEDS: Tamsulosin HCl 0.4 MG Capsule PO ×2 (03:11→18:07)
[2020-11-28] MEDS: Ceftriaxone 1 GM/50 ML BAG IV (04:02)
[2020-11-28 06:46] LABS: Absolute Lymphocyte Count 1.87 X10^3/uL (0.83-4.51); Absolute Neutrophil Count 11.3 X10^3/uL (2.0-7.7); Basophil# 0.05 X10^3/uL; Basophil% 0.3 % (0-1); Eosinophil# 0.09 X10^3/uL; Eosinophils% 0.6 % (0-5); Hematocrit 29.1 % (40-54); Hemoglobin 8.9 g/dL (13.0-16.5); Lymphocyte # 1.87 X10^3/ul (0.83-4.51); Lymphocyte % 12.2 % (19-41); Mean Corp Hgb Conc 30.6 g/dL (32-36); Mean Corpuscular Hgb 27.8 pg (27.0-32.0); Mean Corpuscular Volume 90.9 fL (80-94); Mean Platelet Vol. 8.9 fl (6.2-12.0); Monocyte# 1.77 X10^3/uL; Monocyte% 11.5 % (0-10); NRBC Flagged by Analyzer 0 % (0-5); Neutrophil # 11.29 X10^3/uL (2.7-7.7); Neutrophil % 73.3 % (47-70); POSITIVE DIFFERENTIAL YES; Platelet Count 567 K/mm3 (150-450); RBC Distribution Width CV 15.3 % (11.6-14.6); RBC Distribution Width SD 50.6 fl (35.1-43.9); White Blood Count 15.4 K/mm3 (4.4-11.0)
[2020-11-28 06:55] LABS: Differential Indicated SCAN CRITERIA MET
[2020-11-28 07:08] LABS: Anion Gap 8 (5-15); BUN 74 mg/dL (7-18); BUN/Creat Ratio 28.7 RATIO (10-20); Chloride 108 mmol/L (98-107); Creatinine, Serum 2.58 mg/dL (0.70-1.30); EST Glomerular Filtration Rate 25 mL/min (>60); Est Glom Filt Rate - Afr Amer 31 mL/min (>60); Estimated Creatinine Clearance 19.57 ml/min; Glucose 127 mg/dL (74-106); Potassium 4.3 mmol/L (3.5-5.1); Sodium Level 142 mmol/L (136-145)
[2020-11-28 07:14] LABS: Hypochromasia 1+; Platelet Estimate ADEQUATE (ADEQ); Polychromasia RARE
[2020-11-28] MEDS: Nystatin Powder 15gm Bottle 1 APPLIC TOPICAL ×2 (09:59→22:17)
[2020-11-28] MEDS: Menthol/Lanolin/Calamine/Znox 113 GM Tube 1 APPLIC TOPICAL ×2 (09:59→22:18)
[2020-11-28] MEDS: Metoprolol Tartrate 50 MG Tablet PO (10:04)
[2020-11-28] MEDS: APIXABAN 2.5 MG TABLET PO (10:05)
[2020-11-28] MEDS: Famotidine 20 MG Tablet PO (10:05)
[2020-11-28] MEDS: Oxybutynin 5 MG Tablet PO (10:05)
[2020-11-28 14:49] LABS: Pathologist Review Reviewed
[2020-11-28 14:54] LABS: Pathologist Review Reviewed
--- NOTE | 2020-11-28 16:52 | PN.HOSP_ITS ---
Subjective Subjective Seen and examined. Patient is short of breath, conversational dyspnea, cannot complete one full sentences without pause. No chest pain. Objective Data Objective Data Vital Signs: Vital Signs Temp Pulse Resp BP Pulse Ox 97.9 F 103 H 18 125/79 H 99 11/28/20 14:08 11/28/20 14:08 11/28/20 14:08 11/28/20 14:08 11/28/20 14:08 Oxygen Flow Rate (L/min) 2 Oxygen Delivery Method Nasal Cannula Weight: 157 lb 3.033 oz Body Mass Index (BMI) 24.6 Intake & Output: Intake and Output for Last 24 Hours 11/26/20 11/27/20 11/28/20 23:59 23:59 23:59 Intake Total 360 / 360 1557.5 / 1557.5 542 / 542 Output Total 900 / 900 Balance 360 / 360 1557.5 / 1557.5 -358 / -358 Medical Nutrition Assessment Dietitian: Nutrition Therapy Diagnosis Start: 11/24/20 13:49 Freq: Status: Active Protocol: Document 11/28/20 12:56 RMA (Rec: 11/28/20 12:56 RMA [id number]) Nutrition Malnutrition Evidence of Malnutrition Exists Yes Malnutrition (severe): Chronic Evidenced By Suboptimal Energy Intake ( Severe),Weight Loss (Severe), Physical Changes (Moderate) Clinical Problem Chronic Disease or Condition Related Malnutrition Etiology severe protein-calorie malnutrition in the context of chronic disease r/t inadequate oral intake d/t swallowing difficulty and advanced age/debility Signs/Symptoms as evidenced by pt meeting </= 50% of estimated energy needs x3-4 month, unintentional weight loss of 16% x3-4 month. Status Active Problem Recommendation Dietitian Recommendations/Changes Will change diet to Regular/no added salt diet; sodium- restricted/renal diet restrictions as needed. Consistency per BUSINESS SUPPORT ASSOCIATE, currently pureed with honey thick liquids. Continue ensure enlive 120mL PO 4x/day at [employer] (provides 700 calories, 40g protein). Add ensure pudding w/ meals ( 510 calories, 12g protein). Lonnie as indicated. Lab / Micro Data Result Diagrams: 11/28/20 06:04 11/28/20 06:04 Labs: Laboratory Results - last 24 hr 11/27/20 05:54: Diff Path Review Reviewed 11/28/20 02:15: Urine Color Yellow, Urine Clarity Cloudy, Urine pH 6.0, Ur Specific [place] 1.015, Urine Protein 30 H, Urine Glucose (UA) Normal, Urine Ketones Negative, Urine Occult Blood 150 H, Urine Nitrite Negative, Urine Bilirubin Negative, Urine Urobilinogen Normal, Ur Leukocyte Esterase 500 H, Urine RBC 0-5 SEEN, Urine WBC >100 SEEN, Ur Squamous Epith Cells 0 SEEN, Urine Bacteria 2+, Urine Mucus 0 SEEN 11/28/20 06:04: WBC 15.4 H, RBC 3.20 L, Hgb 8.9 L, Hct 29.1 L, MCV 90.9, MCH 27.8, MCHC 30.6 L, RDW Std Deviation 50.6 H, RDW Coeff of Juan 15.3 H, Plt Count 567 H, MPV 8.9, Immature Gran % (Auto) 2.100 H, Neut % (Auto) 73.3 H, Lymph % (Auto) 12.2 L, Andrew % (Auto) 11.5 H, Eos % (Auto) 0.6, Baso % (Auto) 0.3, Absolute Neuts (auto) 11.3 H, Absolute Lymphs (auto) 1.87, Nucleated RBC % 0, Diff Path Review Reviewed, Platelet Estimate ADEQUATE, Polychromasia RARE, Hypochromasia 1+ 11/28/20 06:04: Sodium 142, Potassium 4.3, Chloride 108 H, Carbon Dioxide 26.0, Anion Gap 8, BUN 74 H, Creatinine 2.58 H, Estim Creat Clear Calc 19.57, Est GFR (MDRD) Af Amer 31 L, Est GFR (MDRD) Non-Af 25 L, BUN/Creatinine Ratio 28.7 H, Glucose 127 H, Calcium 8.0 L Micro: Microbiology 11/23/20 11:25 Blood Culture (Wb) - Anticubital Right Blood Culture - Final No growth in 5 days. 11/23/20 12:00 Blood Culture (Wb) - Anticubital Left Blood Culture - Final No growth in 5 days. 11/23/20 15:47 Mucosa - Nose SARS-CoV-2 Antigen (Rapid) - Final Radiography Diagnostic Testing: Radiology Impression Chest X-Ray 11/28/20 01:33 IMPRESSION: Right upper and left lower lobe airspace disease. Findings may indicate pneumonia. at 0309 Reported and signed by: Rene De Luna MD Electronically Signed: Rene De Luna MD at 3:08 EDT Tel , Service support , Physical Exam Narrative General: Alert, oriented x2, Cooperative, fatigue HEENT: Atraumatic, PERRLA, EOMI, Normocephalic Oral: No Gingival or Mucosal Lesions/ Ulcerations Neck: Supple, No JVD, Negative Carotid Bruits Lungs: Air entry diminished in bilateral lung bases. Bilateral crepitations present. Dyspnea at rest Cardiovascular: Regular rate, Regular Rhythm, Normal S1, Normal S2, No murmurs Abdomen: Bowel Sounds Present, Soft, Non Tender, Non-Distended : No renal angle tenderness. No suprapubic tenderness. Extremities: No edema, Capillary Refill Less than 3 Seconds Skin: Dry skin. No ulcer. Musculoskeletal: No Tenderness to Palpation of Joints or Extremities Neurological: Cranial nerves II-XII grossly intact, DTR 2+/4. Psych/Mental Status: Flat affect. Assessment & Plan Assessment/Plan (1) Acute kidney injury: PLAN: This 85 questioned man admitted for generalized weakness, difficulty getting up for 4 days. Found to have acute kidney injury. 1. Acute kidney injury with suspicion of UTI: Worsening of the creatinine although slight improvement at the beginning. Consult nephrology. Patient also had fever, T-max 100.6 Fahrenheit yesterday and UA suggestive of UTI therefore started on Unasyn by nighttime hospitalist. Urine culture pending. 2. Debility: Patient was evaluated by palliative care but he still wanted to be full code. Patient is short of breath and with increased disability, I feel full code is not a realistic goal. Continue PT and OT. 3. Paroxysmal atrial fibrillation patient is still mild tachycardic. In sinus rhythm. Continue with apixaban and metoprolol succinate 4. Hypothyroidism Stable Continue levothyroxine 5. VTE prophylaxis: Not indicated as patient is already on anticoagulation 6. Advanced directives: Discussed with the patient. Patient was to be full CODE STATUS at this time. 7. Dysphagia has had issues swallowing following his cervical spine surgery Discussed comfort feeds with modified diet v NPO and alternate means of nutrition (i.e., PEG). I discouraged PEG, he agrees. Start thickened liquids with pureed foods. Continue ST. Prognosis: overall guarded to poor. Charges/Coding Visit Charges Inpatient E&M: 80002 Subs Hosp L2
--- NOTE | 2020-11-28 20:59 | NURSING ---
16 F whaley placed as ordered at this time d/t urinary retention
[2020-11-28] MEDS: 0.9% Normal Saline 1,000 ML 125 ML IV (21:04)
--- NOTE | 2020-11-28 22:20 | NURSING ---
PO meds held saul d/t pt lethargy
[2020-11-29] VITALS (15 sets, daily range): BP systolic 106–140; BP diastolic 54–99; PULSE 87–97; RESP 16–18; TEMP 36.5–37; O2SAT 92–100
[2020-11-29] MEDS: 0.9% Normal Saline 1,000 ML 125 ML IV (05:37)
[2020-11-29 06:39] LABS: Absolute Neutrophil Count 7.5 X10^3/uL (2.0-7.7); Basophil# 0.05 X10^3/uL; Basophil% 0.5 % (0-1); Eosinophil# 0.19 X10^3/uL; Eosinophils% 1.8 % (0-5); Hematocrit 27.6 % (40-54); Hemoglobin 8.5 g/dL (13.0-16.5); Mean Corp Hgb Conc 30.8 g/dL (32-36); Mean Corpuscular Hgb 28.3 pg (27.0-32.0); Mean Platelet Vol. 8.8 fl (6.2-12.0); Monocyte# 1.31 X10^3/uL; Monocyte% 12.2 % (0-10); NRBC Flagged by Analyzer 0 % (0-5); Neutrophil # 7.54 X10^3/uL (2.7-7.7); Neutrophil % 69.9 % (47-70); Platelet Count 528 K/mm3 (150-450); RBC Distribution Width CV 15.3 % (11.6-14.6); RBC Distribution Width SD 51.4 fl (35.1-43.9); White Blood Count 10.8 K/mm3 (4.4-11.0)
[2020-11-29] MEDS: Levothyroxine 100 MCG Tablet 200 MCG PO (06:40)
--- NOTE | 2020-11-29 07:01 | PCM.CONS.R ---
Assessment & Plan Assessment/Plan (1) Acute kidney injury: (2) Essential hypertension: (3) UTI (urinary tract infection): PLAN: Patient has CKD stage 3 a at baseline . Baseline Cr ! 1.3 mg/dl YONIS might be prerenal from poor oral intake and being on lasix at home Cr was up to 2.58 mg/dl. Agree with IVF and holding lasix monitor RFP Will check FeUrea no need for HOUSING MANAGEMENT REPRESENTATIVE On usnasyn for UTI BP well controlled. avoid ACEI/ARB Thank you Will continue to follow HPI Consult Data Date of Consult: 11/29/20 HPI Narrative HPI Narrative: DEMETRIUS BURNS, is a 85 M who presents with wekaness. for 4 days. Patient was found to have YONIS and UTI Cr is up to 2.58 mg/dl yesterday from 1.2 last month Patient started on IV at 125 cc/hr NS. home lasix was held. lab from today is pending White cath was placed. No IV contrast. No NSAIDs use. No skin rash ROS: 12 systems review is negative today [facility] Medical History Abnormal EKG Anemia Atrial fibrillation Cancer Cat bite Chest pain Chronic pain Chronic steroid use CRF (chronic renal failure) Elevated serum creatinine Essential hypertension Former smoker GERD (gastroesophageal reflux disease) History of esophageal stricture History of thyroid cancer Hyperglycemia Hypothyroidism Irregular heart beat Osteoarthritis PAC (premature atrial contraction) Sarcoid arthropathy Sarcoidosis Sarcoidosis of lung Home Medications famotidine 20 mg tablet 40 mg PO DAILY tab 04/12/20 [History Last Taken 11/23/20] levothyroxine 200 mcg tablet 200 mcg PO DAILY 04/12/20 [History Last Taken 11/23/20] apixaban 2.5 mg tablet 2.5 mg PO BID 09/20/20 [History Last Taken Unknown] furosemide 20 mg tablet 20 mg PO DAILY PRN 09/20/20 [History Last Taken 11/23/20] metoprolol succinate 25 mg tablet,extended release 24 hr 25 mg PO BID 09/20/20 [History Last Taken 11/23/20] oxybutynin chloride 5 mg tablet 5 mg PO BID tab 09/20/20 [History Last Taken 11/23/20] acetaminophen [Tylenol Extra Strength] 500 mg PO BID 11/23/20 [History Last Taken 11/23/20] oxycodone 5 mg PO BID 11/23/20 [History Last Taken 11/23/20] Allergy/AdvReac Type Severity Reaction Status Date / Time No Known Allergies Allergy Verified 11/23/20 11:13 Family History Other CVA (cerebral vascular accident) Surgical History History of spinal surgery History of thyroidectomy S/P TURP (status post transurethral resection of prostate) Social History Smoking Status: Former smoker alcohol intake: current details: occasional substance use type: does not use caffeine: Yes Type: coffee Number of servings: 4 Physical Exam Narrative Patient looks weak.No acute distress Neck: No NVD eye: PERRLA Chest CTA Abdomen: soft No tenderness + BS ext : + 1 edema Neruo: AAOC3 White cath in place skin no rash Medical Records Data Medical Nutrition Assessment Dietitian: Nutrition Therapy Diagnosis Start: 11/24/20 13:49 Freq: Status: Active Protocol: Document 11/28/20 12:56 RMA (Rec: 11/28/20 12:56 RMA [id number]) Nutrition Malnutrition Evidence of Malnutrition Exists Yes Malnutrition (severe): Chronic Evidenced By Suboptimal Energy Intake ( Severe),Weight Loss (Severe), Physical Changes (Moderate) Clinical Problem Chronic Disease or Condition Related Malnutrition Etiology severe protein-calorie malnutrition in the context of chronic disease r/t inadequate oral intake d/t swallowing difficulty and advanced age/debility Signs/Symptoms as evidenced by pt meeting </= 50% of estimated energy needs x3-4 month, unintentional weight loss of 16% x3-4 month. Status Active Problem Recommendation Dietitian Recommendations/Changes Will change diet to Regular/no added salt diet; sodium- restricted/renal diet restrictions as needed. Consistency per SUGAR SAMPLER, currently pureed with honey thick liquids. Continue ensure enlive 120mL PO 4x/day at [employer] (provides 700 calories, 40g protein). Add ensure pudding w/ meals ( 510 calories, 12g protein). Lonnie as indicated. Lab / Micro Data Result Diagrams: 11/29/20 06:10 11/28/20 06:04 Labs: Laboratory Results - last 24 hr 11/27/20 05:54: Diff Path Review Reviewed 11/28/20 06:04: Diff Path Review Reviewed, Platelet Estimate ADEQUATE, Polychromasia RARE, Hypochromasia 1+ 11/28/20 06:04: Sodium 142, Potassium 4.3, Chloride 108 H, Carbon Dioxide 26.0, Anion Gap 8, BUN 74 H, Creatinine 2.58 H, Estim Creat Clear Calc 19.57, Est GFR (MDRD) Af Amer 31 L, Est GFR (MDRD) Non-Af 25 L, BUN/Creatinine Ratio 28.7 H, Glucose 127 H, Calcium 8.0 L 11/29/20 06:10: WBC 10.8, RBC 3.00 L, Hgb 8.5 L, Hct 27.6 L, MCV 92.0, MCH 28.3, MCHC 30.8 L, RDW Std Deviation 51.4 H, RDW Coeff of Juan 15.3 H, Plt Count 528 H, MPV 8.8, Immature Gran % (Auto) 2.600 H, Neut % (Auto) 69.9, Lymph % (Auto) 13.0 L, [place] % (Auto) 12.2 H, Eos % (Auto) 1.8, Baso % (Auto) 0.5, Absolute Neuts (auto) 7.5, Absolute Lymphs (auto) 1.40, Nucleated RBC % 0 Micro: Microbiology 11/23/20 11:25 Blood Culture (Wb) - Anticubital Right Blood Culture - Final No growth in 5 days. 11/23/20 12:00 Blood Culture (Wb) - Anticubital Left Blood Culture - Final No growth in 5 days.
[2020-11-29 07:02] LABS: Anion Gap 8 (5-15); BUN 70 mg/dL (7-18); Calcium,Total 7.6 mg/dL (8.5-10.1); Chloride 114 mmol/L (98-107); Creatinine, Serum 2.12 mg/dL (0.70-1.30); EST Glomerular Filtration Rate 32 mL/min (>60); Est Glom Filt Rate - Afr Amer 38 mL/min (>60); Estimated Creatinine Clearance 23.82 ml/min; Glucose 109 mg/dL (74-106); Potassium 3.9 mmol/L (3.5-5.1); Sodium Level 147 mmol/L (136-145)
[2020-11-29] MEDS: 0.45% Normal Saline 1,000 ML 75 ML IV ×2 (07:58→20:27)
[2020-11-29] MEDS: Metoprolol Tartrate 50 MG Tablet PO ×2 (10:05→20:27)
[2020-11-29] MEDS: Menthol/Lanolin/Calamine/Znox 113 GM Tube 1 APPLIC TOPICAL ×2 (10:05→20:28)
[2020-11-29] MEDS: Nystatin Powder 15gm Bottle 1 APPLIC TOPICAL ×2 (10:05→20:28)
[2020-11-29] MEDS: Oxybutynin 5 MG Tablet PO ×2 (10:06→20:27)
[2020-11-29] MEDS: Famotidine 20 MG Tablet PO (10:06)
[2020-11-29] MEDS: APIXABAN 2.5 MG TABLET PO ×2 (10:06→20:27)
--- NOTE | 2020-11-29 14:22 | PN.HOSP_ITS ---
Subjective Subjective Patient seen and examined. He was quite lethargic and drowsy so unable to do review of systems Objective Data Objective Data Vital Signs: Vital Signs Temp Pulse Resp BP Pulse Ox 98.4 F 94 16 120/99 H 99 11/29/20 14:05 11/29/20 14:05 11/29/20 14:05 11/29/20 14:05 11/29/20 14:05 Oxygen Flow Rate (L/min) 2 Oxygen Delivery Method Nasal Cannula Weight: 157 lb 3.033 oz Body Mass Index (BMI) 24.6 Intake & Output: Intake and Output for Last 24 Hours 11/27/20 11/28/20 11/29/20 23:59 23:59 23:59 Intake Total 1557.5 / 1557.5 894 / 894 1932.83 / 1932.83 Output Total 1000 / 2400 2600 / 2600 Balance 1557.5 / 1557.5 -106 / -1506 -667.17 / -667.17 Medical Nutrition Assessment Dietitian: Nutrition Therapy Diagnosis Start: 11/24/20 13:49 Freq: Status: Active Protocol: Document 11/28/20 12:56 RMA (Rec: 11/28/20 12:56 RMA [id number]) Nutrition Malnutrition Evidence of Malnutrition Exists Yes Malnutrition (severe): Chronic Evidenced By Suboptimal Energy Intake ( Severe),Weight Loss (Severe), Physical Changes (Moderate) Clinical Problem Chronic Disease or Condition Related Malnutrition Etiology severe protein-calorie malnutrition in the context of chronic disease r/t inadequate oral intake d/t swallowing difficulty and advanced age/debility Signs/Symptoms as evidenced by pt meeting </= 50% of estimated energy needs x3-4 month, unintentional weight loss of 16% x3-4 month. Status Active Problem Recommendation Dietitian Recommendations/Changes Will change diet to Regular/no added salt diet; sodium- restricted/renal diet restrictions as needed. Consistency per GEAR CUTTING MACHINE SET UP OPERATOR, currently pureed with honey thick liquids. Continue ensure enlive 120mL PO 4x/day at [employer] (provides 700 calories, 40g protein). Add ensure pudding w/ meals ( 510 calories, 12g protein). Lonnie as indicated. Lab / Micro Data Result Diagrams: 11/29/20 06:10 11/29/20 06:10 Labs: Laboratory Results - last 24 hr 11/27/20 05:54: Diff Path Review Reviewed 11/28/20 06:04: Diff Path Review Reviewed 11/29/20 06:10: WBC 10.8, RBC 3.00 L, Hgb 8.5 L, Hct 27.6 L, MCV 92.0, MCH 28.3, MCHC 30.8 L, RDW Std Deviation 51.4 H, RDW Coeff of Juan 15.3 H, Plt Count 528 H, MPV 8.8, Immature Gran % (Auto) 2.600 H, Neut % (Auto) 69.9, Lymph % (Auto) 13.0 L, [place] % (Auto) 12.2 H, Eos % (Auto) 1.8, Baso % (Auto) 0.5, Absolute Neuts (auto) 7.5, Absolute Lymphs (auto) 1.40, Nucleated RBC % 0 11/29/20 06:10: Sodium 147 H, Potassium 3.9, Chloride 114 H, Carbon Dioxide 25.0, Anion Gap 8, BUN 70 H, Creatinine 2.12 H, Estim Creat Clear Calc 23.82, Est GFR (MDRD) Af Amer 38 L, Est GFR (MDRD) Non-Af 32 L, BUN/Creatinine Ratio 33.0 H, Glucose 109 H, Calcium 7.6 L 11/29/20 08:25: Urine Creatinine 55.40 Micro: Microbiology 11/28/20 02:15 Urine Catheter - Catheter Urine Culture - Preliminary Gram negative ventura 11/23/20 11:25 Blood Culture (Wb) - Anticubital Right Blood Culture - Final No growth in 5 days. 11/23/20 12:00 Blood Culture (Wb) - Anticubital Left Blood Culture - Final No growth in 5 days. 11/23/20 15:47 Mucosa - Nose SARS-CoV-2 Antigen (Rapid) - Final Physical Exam Const Constitutional Narrative: drowsy Orientation / Consciousness: lethargic Exam Limitations: altered mental status HEENT head/scalp atraumatic and moist oral mucous membranes Head and Scalp: normocephalic Eyes PERRL, EOMs intact bilaterally and conjunctivae normal Neck no lymphadenopathy Resp Resp Narrative: mildly diminished breath sounds bibasally, no wheezes or crackles. On 2l of oxygen. Cardio regular rate, regular rhythm, S1 normal heart sound, S2 normal heart sound and no murmurs GI normal to inspection, nondistended, normoactive bowel sounds, soft to palpation, non-tender and non-distended Extremity normal to inspection, full ROM and no clubbing, cyanosis or edema Peripheral Pulses: Yes pulses 2+ throughout Skin no rashes or lesions noted Neuro Neuro Narrative: lethargic, drowsy, minimally responsive Assessment & Plan Assessment/Plan (1) UTI (urinary tract infection): (2) Weakness: (3) Acute kidney injury: PLAN: #UTI * on IV unasyn * wbc down to 10.8 from 15.4 on admission * urine cultures pending * #YONIS * Cr is down to 2.12 today from 2.58 on admission. Baseline Cr is ~ 1.18 * nephrology on board * being hydrated gently with IVF * lasix on hold. White catheter in place * per nephro, YONIS likely pre renal. FeUrea pending. * #Acute metabolic encephalopathy with debility * patient very lethargic; was deemed hospice appropriate, but wants to maintain being full code * PT/OT on board. * Fall precautions * encephalopathy could be due to UTI and YONIS * #Paroxysmal afib * HR better controlled * on eliquis and metoprolol * #hypothyroidism: on synthroid #Anemia * hb is 8.5 today, down from 8.9 on admission. * baseline is ~ 10. Will monitor, and hold off on aggressive workup for now due to patient's very debilitated state * #Dysphagia * this is chronic * on thickened liquids with pureed feeds * speech therapy on board * aspiration precautions * DVT prophylaxis: on eliquis Disposition: for DC to TCU once medically stable. Prognosis: very poor Charges/Coding Visit Charges Inpatient E&M: 46529 Subs Hosp L2
[2020-11-29] MEDS: Tamsulosin HCl 0.4 MG Capsule PO (16:54)
--- NOTE | 2020-11-29 17:45 | NURSING ---
Report called to CAROL [place] at [phone].
[2020-11-29 18:55] LABS: Urea Nitrogen, Urine 787 mg/dL (NO RANGE EST.)
[2020-11-29] MEDS: Acetaminophen 500 MG Tablet PO (20:27)
[2020-11-30] MEDS: Acetaminophen 500 MG Tablet PO (03:44)
[2020-11-30 03:45] VITALS: BP 137/76; PULSE 72; RESP 16; TEMP 36.5; O2SAT 100
[2020-11-30] MEDS: Levothyroxine 100 MCG Tablet 200 MCG PO (05:07)
[2020-11-30 07:20] LABS: Absolute Lymphocyte Count 1.45 X10^3/uL (0.83-4.51); Absolute Neutrophil Count 6.8 X10^3/uL (2.0-7.7); Basophil# 0.05 X10^3/uL; Basophil% 0.5 % (0-1); Hematocrit 27.9 % (40-54); Hemoglobin 8.2 g/dL (13.0-16.5); Lymphocyte # 1.45 X10^3/ul (0.83-4.51); Lymphocyte % 14.5 % (19-41); Mean Corp Hgb Conc 29.4 g/dL (32-36); Mean Corpuscular Volume 95.2 fL (80-94); Monocyte# 0.99 X10^3/uL; Monocyte% 9.9 % (0-10); NRBC Flagged by Analyzer 0 % (0-5); Neutrophil # 6.79 X10^3/uL (2.7-7.7); Neutrophil % 67.9 % (47-70); Platelet Count 598 K/mm3 (150-450); RBC Distribution Width CV 15.1 % (11.6-14.6); RBC Distribution Width SD 53.5 fl (35.1-43.9); Red Blood Count 2.93 M/mm3 (4.6-6.2)
[2020-11-30 07:31] VITALS: O2SAT 97
[2020-11-30 07:51] LABS: Anion Gap 7 (5-15); BUN 52 mg/dL (7-18); BUN/Creat Ratio 37.7 RATIO (10-20); Chloride 112 mmol/L (98-107); Creatinine, Serum 1.38 mg/dL (0.70-1.30); EST Glomerular Filtration Rate 52 mL/min (>60); Est Glom Filt Rate - Afr Amer 63 mL/min (>60); Estimated Creatinine Clearance 36.59 ml/min; Glucose 101 mg/dL (74-106); Potassium 3.8 mmol/L (3.5-5.1); Sodium Level 144 mmol/L (136-145)
[2020-11-30 09:05] VITALS: PULSE 80
[2020-11-30] MEDS: Menthol/Lanolin/Calamine/Znox 113 GM Tube 1 APPLIC TOPICAL (09:05)
[2020-11-30] MEDS: Metoprolol Tartrate 50 MG Tablet PO (09:05)
[2020-11-30] MEDS: APIXABAN 2.5 MG TABLET PO (09:06)
[2020-11-30] MEDS: Nystatin Powder 15gm Bottle 1 APPLIC TOPICAL (09:06)
[2020-11-30] MEDS: Oxybutynin 5 MG Tablet PO (09:06)
[2020-11-30] MEDS: Famotidine 20 MG Tablet PO (09:06)
[2020-11-30 09:22] VITALS: RESP 18; O2SAT 95
--- NOTE | 2020-11-30 09:44 | PCM.PN.REN ---
Subjective Subjective Following for acute kidney injury on chronic kidney disease. The patient denies increasing shortness of breath. He denies nausea, vomiting, or chest pain. Appetite is better. Objective Data Objective Data Vital Signs: Vital Signs Temp Pulse Resp BP Pulse Ox 97.7 F L 80 18 137/76 H 95 11/30/20 03:45 11/30/20 09:05 11/30/20 09:22 11/30/20 03:45 11/30/20 09:22 Oxygen Flow Rate (L/min) 2 Oxygen Delivery Method Nasal Cannula Weight: 71.3 kg Body Mass Index (BMI) 24.6 Intake & Output: Intake and Output for Last 24 Hours 11/28/20 11/29/20 11/30/20 23:59 23:59 23:59 Intake Total 894 / 894 3108.58 / 3108.58 150 / 150 Output Total 1000 / 2400 2950 / 2950 700 / 700 Balance -106 / -1506 158.58 / 158.58 -550 / -550 Medical Nutrition Assessment Dietitian: Nutrition Therapy Diagnosis Start: 11/24/20 13:49 Freq: Status: Active Protocol: Document 11/28/20 12:56 RMA (Rec: 11/28/20 12:56 RMA [id number]) Nutrition Malnutrition Evidence of Malnutrition Exists Yes Malnutrition (severe): Chronic Evidenced By Suboptimal Energy Intake ( Severe),Weight Loss (Severe), Physical Changes (Moderate) Clinical Problem Chronic Disease or Condition Related Malnutrition Etiology severe protein-calorie malnutrition in the context of chronic disease r/t inadequate oral intake d/t swallowing difficulty and advanced age/debility Signs/Symptoms as evidenced by pt meeting </= 50% of estimated energy needs x3-4 month, unintentional weight loss of 16% x3-4 month. Status Active Problem Recommendation Dietitian Recommendations/Changes Will change diet to Regular/no added salt diet; sodium- restricted/renal diet restrictions as needed. Consistency per [employer], currently pureed with honey thick liquids. Continue ensure enlive 120mL PO 4x/day at [employer] (provides 700 calories, 40g protein). Add ensure pudding w/ meals ( 510 calories, 12g protein). Lonnie as indicated. Lab / Micro Data Result Diagrams: 11/30/20 06:20 11/30/20 06:20 Labs: Laboratory Results - last 24 hr 11/29/20 18:40: Urine Urea Nitrogen 787 11/30/20 06:20: WBC 10.0, RBC 2.93 L, Hgb 8.2 L, Hct 27.9 L, MCV 95.2 H, MCH 28.0, MCHC 29.4 L, RDW Std Deviation 53.5 H, RDW Coeff of Juan 15.1 H, Plt Count 598 H, MPV 9.0, Immature Gran % (Auto) 4.200 H, Neut % (Auto) 67.9, Lymph % (Auto) 14.5 L, [place] % (Auto) 9.9, Eos % (Auto) 3.0, Baso % (Auto) 0.5, Absolute Neuts (auto) 6.8, Absolute Lymphs (auto) 1.45, Nucleated RBC % 0 11/30/20 06:20: Sodium 144, Potassium 3.8, Chloride 112 H, Carbon Dioxide 25.0, Anion Gap 7, BUN 52 H, Creatinine 1.38 H, Estim Creat Clear Calc 36.59, Est GFR (MDRD) Af Amer 63, Est GFR (MDRD) Non-Af 52 L, BUN/Creatinine Ratio 37.7 H, Glucose 101, Calcium 8.0 L Micro: Microbiology 11/28/20 02:15 Urine Catheter - Catheter Urine Culture - Preliminary Enterobacter cloacae complex 11/23/20 11:25 Blood Culture (Wb) - Anticubital Right Blood Culture - Final No growth in 5 days. 11/23/20 12:00 Blood Culture (Wb) - Anticubital Left Blood Culture - Final No growth in 5 days. 11/23/20 15:47 Mucosa - Nose SARS-CoV-2 Antigen (Rapid) - Final Physical Exam Narrative General: Alert and oriented x3. No apparent distress. HEENT: Normocephalic, atraumatic. Mucous membrane moist. Neck: Supple. Heart: Normal S1, S2. No rubs or murmurs. Lungs: Bibasilar crackles. Abdomen: Normal bowel sound, soft, nontender, no guarding or rebound. Extremity: No edema of the lower extremity. Assessment & Plan Assessment/Plan (1) Acute kidney injury: PLAN: Suspect YONIS is secondary to volume depletion since renal function has improved with IV fluid. Renal function has improved. Serum creatinine from today is 1.38 which is close to his prior baseline. The patient is starting to develop some basilar crackles on exam. Therefore, I will stop IV fluid. Continue to hold furosemide for 1 more day. Encouraged the patient to increase oral intake. Recheck renal function tomorrow (2) Chronic kidney disease, stage 3a: PLAN: Baseline serum creatinine is around 1.3 mg/dL. (3) Essential hypertension: PLAN: BP is controlled. He is on metoprolol tartrate 50 mg twice a day. He is off of furosemide for now. We will continue to monitor blood pressure. (4) UTI (urinary tract infection): PLAN: The patient is being treated with Unasyn. Since his creatinine clearance is now over 30 mL/min, it is okay to increase Unasyn to every 6 hours from the nephrology standpoint.
[2020-11-30 09:45] VITALS: BP 105/60; PULSE 84; RESP 20; TEMP 36.6; O2SAT 95
--- NOTE | 2020-11-30 10:58 | CASEMGMT ---
SOCIAL WORK Discussed patient's case and temporary auth with Celia with TCU. Temporary auth for TCU was good through 11/29/20. Celia to submit for auth for TCU at this time. Plan: TCU pending auth Martha Valle MSW, BACK GRINDER
--- NOTE | 2020-11-30 11:41 | PCM.DC.SUM ---
Providers Date of Admission: 11/23/20 Primary Care Physician: Dr. Angeline Batista MD Consultations 11/28/20 17:05 Consult: Nephrology Routine Consulting Provider: Adolph Rhodes Reason for Consult: YONIS on CKD3, possible UTI EMERGENT Consult: No MD Notified: Yes Date Notified: 11/28/20 Time Notified: 17:05 Method of Notification: Answering Service Reason For Visit: DEBILITY, YONIS Diagnosis Discharge Diagnosis (1) Acute kidney injury: Status: Acute Code(s): N17.9 - Acute kidney failure, unspecified (2) Chronic kidney disease, stage 3a: Status: Chronic Code(s): N18.31 - Chronic kidney disease, stage 3a (3) Essential hypertension: Status: Acute Code(s): I10 - Essential (primary) hypertension (4) UTI (urinary tract infection): Status: Acute Code(s): N39.0 - Urinary tract infection, site not specified Medications at Discharge Home Medications famotidine 20 mg tablet 40 mg PO DAILY tab 04/12/20 levothyroxine 200 mcg tablet 200 mcg PO DAILY 04/12/20 apixaban 2.5 mg tablet 2.5 mg PO BID 09/20/20 furosemide 20 mg tablet 20 mg PO DAILY PRN 09/20/20 metoprolol succinate 25 mg tablet,extended release 24 hr 25 mg PO BID 09/20/20 oxybutynin chloride 5 mg tablet 5 mg PO BID tab 09/20/20 acetaminophen [Tylenol Extra Strength] 500 mg PO BID 11/23/20 oxycodone 5 mg PO BID 11/23/20 sulfamethoxazole-trimethoprim [Bactrim DS] 1 tab PO BID #6 tab 11/30/20 Hospital Course Operations None Procedures None Summary of Care Provided Minutes Spent on Discharge: 50 Hospital Course: Patient is an 85 y/o male with an extensive PMh as outlined below who was admitted via the ED on 11/23/2020 with a complaint of weakness and difficulty getting up for the past 4 days prior to admission. He had recently been treated for pneumonia and had a fall with head contusion. He had been given an event monitor which he had received but hadnt yet used it yet. He was admitted and managed for worsening debility and mechanical falls. PT/OT was consulted. Urinalysis showed evidence of UTI after he developed fever and tachycardia. He was started on IV ceftriaxone. Labs also showed evidence of YONIS and nephrology was consulted. Creatinine gradually did improve after he was hydrated with fluids and trended down to his baseline after he peaked at 2.58. Creatinine was 1.38 at time of discharge. Urine culture grew Enterobacter cloacae. Patient remained stable and was discharged to the transitional care unit after he was seen by PT OT and deemed as needing skilled therapy. He is to follow-up with his primary care doctor and utility sales and service manager. He was discharged on p.o. Bactrim double strength 1 tablet twice daily for 3 days. Patient was seen and examined prior to discharge. He was much more alert and better today and had no other complaints. Review of systems otherwise negative. Labs and vitals reviewed. Medication reviewed and reconciled. Physical Exam Const alert, oriented x3 and no apparent distress Constitutional Narrative: drowsy General Appearance: cooperative and comfortable Orientation / Consciousness: lethargic Exam Limitations: no limitations HEENT normocephalic, head/scalp atraumatic and moist oral mucous membranes Eyes PERRL, EOMs intact bilaterally, conjunctivae normal and no scleral icterus Eyes Narrative: No icterus Neck no lymphadenopathy, supple, no meningeal signs and no JVD Neck Narrative: No thyromegaly General: trachea midline Chest inspection of chest normal and palpation of chest normal Resp normal air movement Resp Narrative: mildly diminished breath sounds bibasally, no wheezes or crackles. On 2l of oxygen. Auscultation: diminished lung sounds diffuse Cardio regular rate, regular rhythm, S1 normal heart sound, S2 normal heart sound and no murmurs Cardio Narrative: tachycardic Peripheral Pulses: pulses 2+ throughout GI normal to inspection, nondistended, normoactive bowel sounds, soft to palpation, non-tender and non-distended Extremity normal to inspection, full ROM, normal capillary refill and no clubbing, cyanosis or edema Extremity Narrative: 2+ LE edema General Extremity: edema Skin no rashes or lesions noted Skin Narrative: Skin abrasions on right arm. Wound Narrative: Skin abrasions to right arm Neuro oriented x3, moves all extremities, no focal motor deficits and no sensory deficits noted Sensorium / Orientation: awake and alert Speech: speech normal Psych mental status grossly normal, thought process normal, cooperative, affect normal and speech normal Medical Records Data Medical Nutrition Assessment Dietitian: Nutrition Therapy Diagnosis Start: 11/24/20 13:49 Freq: Status: Active Protocol: Document 11/28/20 12:56 RMA (Rec: 11/28/20 12:56 RMA [id number]) Nutrition Malnutrition Evidence of Malnutrition Exists Yes Malnutrition (severe): Chronic Evidenced By Suboptimal Energy Intake ( Severe),Weight Loss (Severe), Physical Changes (Moderate) Clinical Problem Chronic Disease or Condition Related Malnutrition Etiology severe protein-calorie malnutrition in the context of chronic disease r/t inadequate oral intake d/t swallowing difficulty and advanced age/debility Signs/Symptoms as evidenced by pt meeting </= 50% of estimated energy needs x3-4 month, unintentional weight loss of 16% x3-4 month. Status Active Problem Recommendation Dietitian Recommendations/Changes Will change diet to Regular/no added salt diet; sodium- restricted/renal diet restrictions as needed. Consistency per PRESCHOOL HEAD TEACHER, currently pureed with honey thick liquids. Continue ensure enlive 120mL PO 4x/day at [employer] (provides 700 calories, 40g protein). Add ensure pudding w/ meals ( 510 calories, 12g protein). Lonnie as indicated. Weight / BMI Weight Weight: 157 lb 3.033 oz Body Mass Index (BMI) 24.6 ABG / Lab / Microbiology Data Result Diagrams: 11/30/20 06:20 11/30/20 06:20 Laboratory: Laboratory Results - last 24 hr 11/29/20 18:40: Urine Urea Nitrogen 787 11/30/20 06:20: WBC 10.0, RBC 2.93 L, Hgb 8.2 L, Hct 27.9 L, MCV 95.2 H, MCH 28.0, MCHC 29.4 L, RDW Std Deviation 53.5 H, RDW Coeff of Juan 15.1 H, Plt Count 598 H, MPV 9.0, Immature Gran % (Auto) 4.200 H, Neut % (Auto) 67.9, Lymph % (Auto) 14.5 L, O'Brien % (Auto) 9.9, Eos % (Auto) 3.0, Baso % (Auto) 0.5, Absolute Neuts (auto) 6.8, Absolute Lymphs (auto) 1.45, Nucleated RBC % 0 11/30/20 06:20: Sodium 144, Potassium 3.8, Chloride 112 H, Carbon Dioxide 25.0, Anion Gap 7, BUN 52 H, Creatinine 1.38 H, Estim Creat Clear Calc 36.59, Est GFR (MDRD) Af Amer 63, Est GFR (MDRD) Non-Af 52 L, BUN/Creatinine Ratio 37.7 H, Glucose 101, Calcium 8.0 L Microbiology: Microbiology 11/28/20 02:15 Urine Catheter - Catheter Urine Culture - Preliminary Enterobacter cloacae complex 11/23/20 11:25 Blood Culture (Wb) - Anticubital Right Blood Culture - Final No growth in 5 days. 11/23/20 12:00 Blood Culture (Wb) - Anticubital Left Blood Culture - Final No growth in 5 days. 11/23/20 15:47 Mucosa - Nose SARS-CoV-2 Antigen (Rapid) - Final D/C Instructions Discharge Diet: - (dysphagia diet, with pureed feeds and thickened liquids) Discharge Activity: Return to Normal Activity Weight Bearing Status: Weight bearing as tolerated Call your doctor if you observe: Fever of 101 or Higher, Shortness of breath, Dizziness and Swelling in the ankles Meaningful Use Info Meaningful Use Diagnoses (Choose all that apply): None applicable Discharge Plan Admission Admit Date/Time: 11/23/20 15:32 Primary Reason for Your Visit: debility, UTI, YONIS Attending Provider: Eva Hanks Primary Care Provider: Angeline Batista Consulting Providers: Adolph Rhodes Discharge Orders/Prescriptions Prescriptions: New sulfamethoxazole-trimethoprim [Bactrim DS] 800-160 mg tablet 1 tab PO BID Qty: 6 RF: 0 Continued levothyroxine 200 mcg tablet 200 mcg PO DAILY RF: 0 famotidine 20 mg tablet 40 mg PO DAILY RF: 0 furosemide 20 mg tablet 20 mg PO DAILY PRN (Reason: edema) RF: 0 oxybutynin chloride 5 mg tablet 5 mg PO BID RF: 0 Eliquis 2.5 mg tablet 2.5 mg PO BID RF: 0 metoprolol succinate 25 mg tablet extended release 24 hr 25 mg PO BID RF: 0 oxycodone 5 mg/5 mL solution 5 mg PO BID RF: 0 acetaminophen [Tylenol Extra Strength] 500 mg Tablet 500 mg PO BID RF: 0 Referrals / Follow Up: Adolph Rhodes MD [STAFF PHYSICIAN] - Within 2 Weeks Angeline Batista MD [Primary Care Provider] - In 1 Week ( OUT OF OFFICE. THE APPOINTMENT IS WITH THE COMMERCIAL ELECTRICIAN: MONDAY DECEMBER 07, 2020 @ 1:30 PM) Disposition Disposition (needs filled in before D/C Order can be placed): [facility] Facility Charges/Coding Visit Charges Inpatient E&M: 76993 Disch Hosp
[2020-11-30 13:57] VITALS: PULSE 72; RESP 20; O2SAT 95
--- NOTE | 2020-11-30 14:50 | PN.HOSP_ITS ---
Subjective Subjective Patient seen and examined. He is much more alert today and communicative and states he feels very well. He had a good night sleep and has no complaints this morning. Review of systems otherwise negative. He has remained hemodynamically stable. Kidney function has improved markedly. Objective Data Objective Data Vital Signs: Vital Signs Temp Pulse Resp BP Pulse Ox 97.9 F 72 20 H 105/60 95 11/30/20 09:45 11/30/20 13:57 11/30/20 13:57 11/30/20 09:45 11/30/20 13:57 Oxygen Flow Rate (L/min) 1 Oxygen Delivery Method Nasal Cannula Weight: 157 lb 3.033 oz Body Mass Index (BMI) 24.6 Intake & Output: Intake and Output for Last 24 Hours 11/28/20 11/29/20 11/30/20 23:59 23:59 23:59 Intake Total 894 / 894 3108.58 / 3108.58 1791 / 1791 Output Total 1000 / 2400 2950 / 2950 900 / 900 Balance -106 / -1506 158.58 / 158.58 891 / 891 Medical Nutrition Assessment Dietitian: Nutrition Therapy Diagnosis Start: 11/24/20 13:49 Freq: Status: Active Protocol: Document 11/28/20 12:56 RMA (Rec: 11/28/20 12:56 RMA [id number]) Nutrition Malnutrition Evidence of Malnutrition Exists Yes Malnutrition (severe): Chronic Evidenced By Suboptimal Energy Intake ( Severe),Weight Loss (Severe), Physical Changes (Moderate) Clinical Problem Chronic Disease or Condition Related Malnutrition Etiology severe protein-calorie malnutrition in the context of chronic disease r/t inadequate oral intake d/t swallowing difficulty and advanced age/debility Signs/Symptoms as evidenced by pt meeting </= 50% of estimated energy needs x3-4 month, unintentional weight loss of 16% x3-4 month. Status Active Problem Recommendation Dietitian Recommendations/Changes Will change diet to Regular/no added salt diet; sodium- restricted/renal diet restrictions as needed. Consistency per PURCHASE REQUEST EDITOR, currently pureed with honey thick liquids. Continue ensure enlive 120mL PO 4x/day at [employer] (provides 700 calories, 40g protein). Add ensure pudding w/ meals ( 510 calories, 12g protein). Lonnie as indicated. Lab / Micro Data Result Diagrams: 11/30/20 06:20 11/30/20 06:20 Labs: Laboratory Results - last 24 hr 11/29/20 18:40: Urine Urea Nitrogen 787 11/30/20 06:20: WBC 10.0, RBC 2.93 L, Hgb 8.2 L, Hct 27.9 L, MCV 95.2 H, MCH 28.0, MCHC 29.4 L, RDW Std Deviation 53.5 H, RDW Coeff of Juan 15.1 H, Plt Count 598 H, MPV 9.0, Immature Gran % (Auto) 4.200 H, Neut % (Auto) 67.9, Lymph % (Auto) 14.5 L, [place] % (Auto) 9.9, Eos % (Auto) 3.0, Baso % (Auto) 0.5, Absolute Neuts (auto) 6.8, Absolute Lymphs (auto) 1.45, Nucleated RBC % 0 11/30/20 06:20: Sodium 144, Potassium 3.8, Chloride 112 H, Carbon Dioxide 25.0, Anion Gap 7, BUN 52 H, Creatinine 1.38 H, Estim Creat Clear Calc 36.59, Est GFR (MDRD) Af Amer 63, Est GFR (MDRD) Non-Af 52 L, BUN/Creatinine Ratio 37.7 H, Glucose 101, Calcium 8.0 L Micro: Microbiology 11/28/20 02:15 Urine Catheter - Catheter Urine Culture - Preliminary Enterobacter cloacae complex 11/23/20 11:25 Blood Culture (Wb) - Anticubital Right Blood Culture - Final No growth in 5 days. 11/23/20 12:00 Blood Culture (Wb) - Anticubital Left Blood Culture - Final No growth in 5 days. 11/23/20 15:47 Mucosa - Nose SARS-CoV-2 Antigen (Rapid) - Final Physical Exam Const alert, oriented x3 and no apparent distress Constitutional Narrative: drowsy General Appearance: cooperative and comfortable Exam Limitations: no limitations HEENT normocephalic, head/scalp atraumatic and moist oral mucous membranes Head and Scalp: normocephalic Eyes PERRL, EOMs intact bilaterally, conjunctivae normal and no scleral icterus Eyes Narrative: No icterus Neck no lymphadenopathy, supple, no meningeal signs and no JVD Neck Narrative: No thyromegaly General: trachea midline Chest inspection of chest normal and palpation of chest normal Resp normal air movement Resp Narrative: mildly diminished breath sounds bibasally, no wheezes or crackles. On 2l of oxygen. Auscultation: diminished lung sounds diffuse Cardio regular rate, regular rhythm, S1 normal heart sound, S2 normal heart sound and no murmurs Cardio Narrative: tachycardic Peripheral Pulses: pulses 2+ throughout GI normal to inspection, nondistended, normoactive bowel sounds, soft to palpation, non-tender and non-distended Extremity normal to inspection, full ROM, normal capillary refill and no clubbing, cyanosis or edema General Extremity: edema Peripheral Pulses: Yes pulses 2+ throughout Skin no rashes or lesions noted Skin Narrative: Skin abrasions on right arm. Wound Narrative: Skin abrasions to right arm Neuro oriented x3, moves all extremities, no focal motor deficits and no sensory deficits noted Sensorium / Orientation: awake and alert Speech: speech normal Psych mental status grossly normal, thought process normal, cooperative, affect normal and speech normal Assessment & Plan Assessment/Plan (1) UTI (urinary tract infection): (2) Weakness: (3) Acute kidney injury: PLAN: #UTI * on IV unasyn * wbc down to 10.8 from 15.4 on admission * urine culture growing enterobacter cloacae. * blood cultures negative * will stop unasyn and switch to bactrim PO based on sensitivities * * #YONIS * Cr is down to 1.38 from 2.58 on admission. Baseline Cr is ~ 1.18 * nephrology on board * DC IVF. * lasix on hold. White catheter in place * per nephro, YONIS likely pre renal. * #Acute metabolic encephalopathy with debility * Resolving. * Patient is much more alert today and communicative. * PT/OT on board. * Fall precautions * #Paroxysmal afib * HR controlled * on eliquis and metoprolol * #hypothyroidism: on synthroid #Anemia * hb is 8.2 today, down from 8.9 on admission. * baseline is ~ 10. Will monitor, and hold off on aggressive workup for now due to patient's very debilitated state * #Dysphagia * this is chronic * on thickened liquids with pureed feeds * speech therapy on board * aspiration precautions * DVT prophylaxis: on eliquis Disposition: for DC to TCU. Awaiting pre-CERT. Charges/Coding Visit Charges Inpatient E&M: 00295 Subs Hosp L2
--- NOTE | 2020-11-30 15:11 | CASEMGMT ---
SOCIAL WORK Call from Celia with [facility], patient approved. beer coil cleaner updated. Plan: [facility] Valle, TRANSMISSIONS SYSTEMS OPERATOR, SENIOR JAVASCRIPT ENGINEER
--- NOTE | 2020-11-30 15:20 | NURSING ---
report called to [facility] maradiaga
--- NOTE | 2020-11-30 15:54 | PCM.TXEXTCAR ---
Diet 11/24/20 13:02 Diet: Regular - General Food consistency:: Pureed Liquid Consistency:: Honey/Moderately Thick Dietary Modifications:: No Added Salt Type of Dietary Supplement:: Ensure Pudding Is pt able to select menu?: No Diet Comments: oral care min every 4 hours, 1:1 supervision with ALL intake & monitor sats Routine Orders/Code Status Enema Type: Fleetz Enema Frequency: Daily PRN Suppository Type: Dulcolax 10mg Suppository Frequency: Daily PRN O2 Frequency: PRN Keep PO Greater than or Equal to (%): 90 Code Status: Full Code Wound(s) Back of head: Wound Type: contusion from fall RIGHT ARM: Wound Type: Skin Tear coccyx: Wound Type: Pressure Injury left lower lip: Wound Type: Abrasion Therapies Weight Bearing: Weight bearing as tolerated Physical Therapy: Eval and Treat Occupational Therapy: Eval and Treat Problem/Diagnosis (1) Acute kidney injury: Status: Acute (2) Chronic kidney disease, stage 3a: Status: Chronic (3) Essential hypertension: Status: Acute (4) UTI (urinary tract infection): Status: Acute Allergies/Procedures Done in Hospital Allergies No Known Allergies Allergy (Verified 11/23/20 11:13) Type of Care/Length of Stay Estimated LOS: More Than 30 Days Type of Care Needed: Skilled Rehab Potential: Poor Prognosis: Poor Additional Orders/Day of Discharge Day of Discharge: 11/30/20 Dietary and Speech Recommendations Dietitian Recommendations/Changes: Will change diet to Regular/no added salt diet; sodium-restricted/renal diet restrictions as needed. Consistency per FARM MACHINERY ASSEMBLER, currently pureed with honey thick liquids. Continue ensure enlive 120mL PO 4x/day at [employer] (provides 700 calories, 40g protein). Add ensure pudding w/ meals (510 calories, 12g protein). Lonnie as indicated. Discharge Plan Admission Admit Date/Time: 11/23/20 15:32 Primary Reason for Your Visit: debility, UTI, YONIS Attending Provider: Eva Hanks Primary Care Provider: Angeline Batista Consulting Providers: Adolph Rhodes Discharge Orders/Prescriptions Prescriptions: New sulfamethoxazole-trimethoprim [Bactrim DS] 800-160 mg tablet 1 tab PO BID Qty: 6 RF: 0 Continued levothyroxine 200 mcg tablet 200 mcg PO DAILY RF: 0 famotidine 20 mg tablet 40 mg PO DAILY RF: 0 furosemide 20 mg tablet 20 mg PO DAILY PRN (Reason: edema) RF: 0 oxybutynin chloride 5 mg tablet 5 mg PO BID RF: 0 Eliquis 2.5 mg tablet 2.5 mg PO BID RF: 0 metoprolol succinate 25 mg tablet extended release 24 hr 25 mg PO BID RF: 0 oxycodone 5 mg/5 mL solution 5 mg PO BID RF: 0 acetaminophen [Tylenol Extra Strength] 500 mg Tablet 500 mg PO BID RF: 0 Referrals / Follow Up: Adolph Rhodes MD [STAFF PHYSICIAN] - Within 2 Weeks Angeline Batista MD [Primary Care Provider] - In 1 Week ( OUT OF OFFICE. THE APPOINTMENT IS WITH THE DIRECTOR OF AGRICULTURE: MONDAY DECEMBER 07, 2020 @ 1:30 PM) Disposition Disposition (needs filled in before D/C Order can be placed): Custodial Facility
== END 2020-11-30 16:11 | disposition skilled nursing facility (03) | DRG 682 ==
LOC: ED 15:48 → PCU 16:57 → MS3 11-29 18:14
PROVIDERS: Internal Medicine; Internal Medicine Nephrology; Nurse Practitioner Family; Emergency Provider Emergency Medicine; PCP Family Medicine; Visit Provider Student in an Organized Health Care Education/Training Program
DX: N17.9 Acute kidney failure, unspecified (principal); E43 Unspecified severe protein-calorie malnutrition; G93.41 Metabolic encephalopathy; N39.0 Urinary tract infection, site not specified; I12.9 Hypertensive chronic kidney disease with stage 1 through stage 4 chronic kidney disease, or unspecified chronic kidney disease; N18.31 Chronic kidney disease, stage 3a; I48.0 Paroxysmal atrial fibrillation; R53.81 Other malaise; G89.29 Other chronic pain; E86.0 Dehydration; R13.10 Dysphagia, unspecified; I49.1 Atrial premature depolarization; D86.86 Sarcoid arthropathy; D86.0 Sarcoidosis of lung; Z20.822 Contact with and (suspected) exposure to COVID-19; E89.0 Postprocedural hypothyroidism; S40.811A Abrasion of right upper arm, initial encounter; K21.9 Gastro-esophageal reflux disease without esophagitis; Z68.24 Body mass index [BMI] 24.0-24.9, adult; Z79.890 Hormone replacement therapy; Z79.52 Long term (current) use of systemic steroids; Z79.01 Long term (current) use of anticoagulants; Z79.899 Other long term (current) drug therapy; Z87.891 Personal history of nicotine dependence; Z85.850 Personal history of malignant neoplasm of thyroid; Z87.01 Personal history of pneumonia (recurrent)
CPT/HCPCS: 36415; 71045; 80048; 80053; 81001; 82570; 83605; 83735; 84484; 84540; 85025; 87040; 87077; 87086; 87088; 87186; 87426; 92507; 92526; 92610; 93005; 97110; 97116; 97162; 97166; 97530; 97535; 97802; 97803; 99285; J7030; P9612; A4216; J0295

== ENCOUNTER 2020-11-30 16:12 | Inpatient (IN) | payer MEDICARE, SELFPAY ==
[2020-11-23 17:15] VITALS: BMI 24.6
[2020-11-30 16:33] VITALS: BP 141/58; PULSE 89; RESP 17; TEMP 36.6; O2SAT 95; BMI 24.6
[2020-11-30 20:00] VITALS: PULSE 93; RESP 18
[2020-11-30] MEDS: APIXABAN 2.5 MG TABLET PO (20:27)
[2020-11-30] MEDS: Acetaminophen 500 MG Tablet PO (20:27)
[2020-11-30] MEDS: Smz/Tmp Ds Tablet 1 TABLET PO (20:27)
[2020-11-30] MEDS: Oxybutynin 5 MG Tablet PO (20:27)
[2020-11-30] MEDS: oxyCODONE 5 MG Tablet PO (20:32)
[2020-11-30 20:34] VITALS: BP 148/84; PULSE 94
[2020-11-30] MEDS: Metoprolol(XL)Succ 25 MG Tablet PO (20:34)
--- NOTE | 2020-11-30 20:51 | HP.PCM_ITS ---
HPI - General General Date of Admission: 11/30/20 HPI Narrative 11/23/2020 DEMETRIUS BURNS, is a 85 Male who presents to [facility] Emergency Department with weakness. Unable to get out of chair for 4 days. unable to care for him. Recent hospitalization 3 weeks prior for sepsis, pneumonia. Acute kidney injury. 11/23/2020 Admit to Hospital. Hold Lasix, give IV fluids for acute kidney injury. PT/OT for debility. 11/24/2020 Acute kidney injury improved. 11/25/2020 PT/OT for TCU. Hold Lasix for acute kidney injury. 11/26/2020 Acute kidney injury worse, continue to hold Lasix. 11/27/2020 IV fluids for prerenal azotemia, acute kidney injury. 11/28/2020 Tachycardia, blood cultures sent. Ceftriaxone IV for urinary tract infection, obtain Chest X-ray. 11/29/2020 Drowsy, lethargic. Unasyn IV for urinary tract infection. Prerenal acute kidney injury improved from creatinine 2.58 to creatinine 2.12. Hospice appropriate, but patient maintained full code. 11/30/2020 PT/OT for TCU. Enterobacter Cloacae urinary tract infection to finish treatment with bactrim x 3 days. 11/30/2020 Admit to TCU with debility, here for rehabiltation, strengthening, prior to discharge home with . [facility] Medical History Abnormal EKG Anemia Atrial fibrillation Cancer Cat bite Chest pain Chronic pain Chronic steroid use CRF (chronic renal failure) Elevated serum creatinine Essential hypertension Former smoker GERD (gastroesophageal reflux disease) History of esophageal stricture History of thyroid cancer Hyperglycemia Hypothyroidism Irregular heart beat Osteoarthritis PAC (premature atrial contraction) Sarcoid arthropathy Sarcoidosis Sarcoidosis of lung Home Medications famotidine 20 mg tablet 40 mg PO DAILY tab 04/12/20 [History Last Taken 11/23/20] levothyroxine 200 mcg tablet 200 mcg PO DAILY 04/12/20 [History Last Taken 11/23/20] apixaban 2.5 mg tablet 2.5 mg PO BID 09/20/20 [History Last Taken Unknown] furosemide 20 mg tablet 20 mg PO DAILY PRN 09/20/20 [History Last Taken 11/23/20] metoprolol succinate 25 mg tablet,extended release 24 hr 25 mg PO BID 09/20/20 [History Last Taken 11/23/20] oxybutynin chloride 5 mg tablet 5 mg PO BID tab 09/20/20 [History Last Taken 11/23/20] acetaminophen [Tylenol Extra Strength] 500 mg PO BID 11/23/20 [History Last Taken 11/23/20] oxycodone 5 mg PO BID 11/23/20 [History Last Taken 11/23/20] sulfamethoxazole-trimethoprim [Bactrim DS] 1 tab PO BID 11/30/20 [History Last Taken Unknown] Allergy/AdvReac Type Severity Reaction Status Date / Time No Known Allergies Allergy Verified 11/23/20 11:13 Family History Other CVA (cerebral vascular accident) Surgical History History of spinal surgery History of thyroidectomy S/P TURP (status post transurethral resection of prostate) Social History (Updated 11/30/20 @ 20:[address] Tony Molina MD) household members: spouse Smoking Status: Former smoker alcohol intake: current details: occasional substance use type: does not use caffeine: Yes Type: coffee Number of servings: 4 ROS Constitutional Constitutional: Denies chills, fever(s) or weight gain ENT HEENT: Denies headache(s), nasal congestion or nasal discharge Cardiovascular Cardiovascular: Denies chest pain or palpitations Respiratory/Chest Respiratory/Chest: Denies cough, excessive phlegm production or shortness of breath with exertion Gastrointestinal Gastrointestinal: Denies abdominal pain, nausea or vomiting Genitourinary Genitourinary: Denies dysuria Musculoskeletal Musculoskeletal: Denies joint pain or joint swelling Integumentary Integumentary: Denies rash or wounds Neurologic Neurologic: Denies focal weakness, numbness or tingling Psychiatric Psychiatric: Reports auditory hallucinations; Denies anxiety, depression, homicidal ideation or suicidal ideation Vital Signs Vital Signs Vital Signs: 11/30/20 16:33 11/30/20 20:34 Temperature 97.8 F Temperature Source Temporal Pulse Rate 89 94 Respiratory Rate 17 Blood Pressure 141/58 H 148/84 H Blood Pressure Mean 85 Blood Pressure Source Monitor Blood Pressure Position Supine Blood Pressure Location Right Arm Pulse Ox 95 Oxygen Delivery Method Nasal Cannula Oxygen Flow Rate (L/min) 2 Weight Weight: 71.3 kg Body Mass Index (BMI) 24.6 Physical Exam Const alert and oriented x3 General Appearance: cooperative HEENT normocephalic Eyes PERRL and EOMs intact bilaterally Neck supple, no JVD and no carotid bruits Resp normal respiratory effort, normal air movement and clear to auscultation bilaterally Cardio regular rate and regular rhythm GI normal to inspection, nondistended, normoactive bowel sounds, non-tender and non-distended Extremity normal capillary refill General Extremity: Negative for edema Skin no rashes or lesions noted General Skin Exam: no breakdown Psych affect normal Appearance: appropriate Assessment & Plan Assessment/Plan (1) Debility: (2) Acute kidney injury: (3) Urinary tract infection: (4) Dysphagia: (5) Sarcoidosis: (6) Atrial fibrillation: (7) Gastroesophageal reflux disease: (8) Hypertension: (9) Edema: (10) Overactive bladder: PLAN: 85 year old male with below past medical history hospitalized for weakness secondary to prerenal acute kidney injury, urinary tract infection, complicated by encephalopathy, admitted to TCU with debility, here for rehabilitation, strengthening, prior to discharge home with . * Debility - PT/OT. * Dysphagia - ST. * Pain - Tylenol 1000MG BID, Oxycodone 5MG Q6H PRN pain (6-10). * Bowel - Senna/colace 1 tablet twice daily, Dulcolax 10mg [place] daily PRN. * Adult immunization - Administer prevnar 13, pneumovax 23, Fluzone, covid19 vaccine as appropriate. * DVT prophylaxis - Not necessary, on Eliquis. * Atrial fibrillation - Metoprolol succinate 25mg twice daily, Eliquis 2.5mg twice daily. * Nutrition - Ensure Enlive 120ml 4x/day. * GERD - Famotidine 40mg daily. * Edema - Lasix 20mg daily PRN. * Hypothyroidism - Levothyroxine 200mcg daily. * Overactive bladder - Oxybutynin 5mg twice daily. * E. Cloacae urinary tract infection - Bactrim 1 tablet twice daily thru 12/03/2020.
[2020-12-01 05:43] LABS: Hematocrit 28.3 % (40-54); Hemoglobin 8.7 g/dL (13.0-16.5); Mean Corp Hgb Conc 30.7 g/dL (32-36); Mean Corpuscular Hgb 28.3 pg (27.0-32.0); Mean Corpuscular Volume 92.2 fL (80-94); Mean Platelet Vol. 8.7 fl (6.2-12.0); POSITIVE COUNT YES; POSITIVE MORPHOLOGY YES; Platelet Count 625 K/mm3 (150-450); RBC Distribution Width CV 15.1 % (11.6-14.6); RBC Distribution Width SD 50.6 fl (35.1-43.9); Red Blood Count 3.07 M/mm3 (4.6-6.2); White Blood Count 10.2 K/mm3 (4.4-11.0)
[2020-12-01 06:10] LABS: Differential Indicated MANUAL DIFF
[2020-12-01 06:14] LABS: Anion Gap 7 (5-15); BUN 42 mg/dL (7-18); BUN/Creat Ratio 35.3 RATIO (10-20); Calcium,Total 7.9 mg/dL (8.5-10.1); Chloride 111 mmol/L (98-107); Creatinine, Serum 1.19 mg/dL (0.70-1.30); EST Glomerular Filtration Rate 62 mL/min (>60); Est Glom Filt Rate - Afr Amer 75 mL/min (>60); Estimated Creatinine Clearance 42.43 ml/min; Glucose 86 mg/dL (74-106); Potassium 4.1 mmol/L (3.5-5.1); Sodium Level 144 mmol/L (136-145)
[2020-12-01 06:43] LABS: Metamyelocyte 1 % (0-1); Myelocyte 4 % (0-0); Neutrophil-Segmented 65 % (47-70); Promyelocyte 1 % (0-0)
[2020-12-01 06:44] LABS: Absolute Neutrophil Count 6.6 X10^3/uL (2.0-7.7); Eosinophil 3 % (0-5); Lymphocyte 19 % (19-41); Monocyte 7 % (0-10)
[2020-12-01 06:45] LABS: Absolute Lymphocyte Count 1.94 X10^3/uL (0.83-4.51); Platelet Estimate MOD INC (ADEQ); Red Cell Morphology NORM C+C NORMAL (NORM C&C)
[2020-12-01 06:53] VITALS: BP 136/69; PULSE 84; RESP 16; TEMP 36.6; O2SAT 98
[2020-12-01] MEDS: Smz/Tmp Ds Tablet 1 TABLET PO (06:56)
[2020-12-01] MEDS: Oxybutynin 5 MG Tablet PO ×2 (06:56→17:44)
[2020-12-01] MEDS: APIXABAN 2.5 MG TABLET PO ×2 (06:56→17:44)
[2020-12-01] MEDS: Famotidine 20 MG Tablet 40 MG PO (06:57)
[2020-12-01] MEDS: Levothyroxine 100 MCG Tablet 200 MCG PO (06:57)
[2020-12-01 06:58] VITALS: PULSE 84
[2020-12-01] MEDS: Metoprolol(XL)Succ 25 MG Tablet PO ×2 (06:58→17:44)
[2020-12-01] MEDS: Acetaminophen 500 MG Tablet 1000 MG PO ×2 (07:01→17:44)
[2020-12-01] MEDS: Senna/Docusate Sodium 1 Tablet PO ×2 (07:02→17:44)
[2020-12-01 10:00] VITALS: PULSE 130; RESP 20; O2SAT 91
[2020-12-01 10:58] LABS: Pathologist Review Reviewed
[2020-12-01 11:02] VITALS: O2SAT 94
[2020-12-01] MEDS: Tuberculin,Purif.prot.deriv. 50 TU/ML Vial 0.1 ML ID (11:24)
--- NOTE | 2020-12-01 11:54 | EKG12_ITS ---
Test Reason : TACHY Blood Pressure : / mmHG Vent. Rate : 078 BPM Atrial Rate : 078 BPM P-R Int : 172 ms QRS Dur : 090 ms QT Int : 398 ms P-R-T Axes : 030 022 025 degrees QTc Int : 453 ms Sinus rhythm with Premature atrial complexes Otherwise normal ECG Confirmed by ANGELLA BERG, STEVE ([id number]), proposal editor JANETT AMBRIZ ([id number]) on 12/06/2020 9:00:20 AM Referred By: SEN Confirmed By:STEVE PERALES MD
--- NOTE | 2020-12-01 11:55 | NURSING ---
this RN called into pt room by Speech therapist. pt noted to have an O2 sat of 77 on 2L NC and a heart rate of 127. pt states he has some SOB. This RN increases supplemental O2 to 3L with little to no change in O2 saturation. This RN then increases O2 to 4L via NC. pt's O2 sat increased to 89%. Pt's lung sounds assessed with fine crackles throughout and apical pulse regular and bounding at 130 BPM. supplemental O2 increased to 5L NC and pt O2 sats increased to 91%. CAROL Cai notifies Dr. Watson, and Dr. Watson orders an EKG. Respiratory notified of STAT EKG order. This RN will continue to monitor pt for increased SOB and tachycardia. pt denies further needs and call light within reach. Speech therapist remains at bedside.
--- NOTE | 2020-12-01 12:56 | RAD_ITS ---
EXAM: XR CHEST, 2 VIEWS CLINICAL INDICATION: Hypoxia, SOB, crackles in lungs TECHNIQUE: Frontal and lateral views of the chest. This report was created using [employer] report generation technology. COMPARISON: None. FINDINGS: LUNGS AND PLEURAL SPACES: Mild decrease in ill-defined infiltrate above the minor fissure in the right upper lobe. Mild asymmetric bibasilar fibrosis are unchanged. No pneumothorax. No effusion. HEART: Unremarkable. Cardiac silhouette not enlarged. MEDIASTINUM: Central airways and mediastinal contour are unremarkable. BONES/JOINTS: Unremarkable. SOFT TISSUES: Unremarkable. RAD/Chest PA and Lateral IMPRESSION: Mild decrease in size of right upper lobe pneumonia above the minor fissure. Electronically Signed: John Cornelius MD at 14:00 EDT , Service support ,
--- NOTE | 2020-12-01 13:44 | PCM.PN.BLA ---
Progress Note I was asked to see the patient by nursing for increased oxygen requirement and a heart rate of 130. EKG shows NSR at 78 BPM now with [address] elevation. No ST depression He has peaked T waves in the precordial leads but, this is also seen on EKG from July. He is now 80% on 6 LPM via nursing but, on my PE he has no cyanosis. He has some SOB but no cp. He is coughing per nursing. . He is afebrile. All lab from today was personally reviewed. Hemoglobin is low at 8.7. Platelets are high at 625,000. WBC is normal but he has 4% myelocytes and 1% promyelocytes. I do not know if this is new or chronic. BUN is 42 and the creatinine is 1.19. The BUN is actually coming down and it was 70 on 11/29/2020. Creatinine is also improving and it has come down from 2.58 on 11/28/2020. He had a negative COVID on 11/23/20. He has a UTI - UA on 11/28/20. Culture grew Enterobacter cloacae. It is resistant to cephalosporins, Macrobid, Zosyn, tetracycline. He is currently on Bactrim. It is sensitive to yannick quinolones. CXR shows PNA in the R mid lung and also in the left base. Physical Exam Const alert Constitutional Narrative: Pleasant and cooperative. Resp Resp Narrative: Good respiratory effort. He has coarse crackles in the bases bilaterally that do not resolve after several deep breaths. No wheezing, no rhonchi. No conversational dyspnea. Mildly tachypneic. Extremity Extremity Narrative: No cyanosis. Assessment & Plan Assessment/Plan (1) Urinary tract infection: QUALIFIERS: Urinary tract infection type: site unspecified (2) Community acquired bacterial pneumonia: (3) Acute respiratory failure with hypoxemia: PLAN: 1. DC Bactrim 2. Start Levaquin. 3. Check a ABG - I do not think the Pulse ox of 80% is correct. 4. I suspect the immature WBC's are due to the infection but, would check a CBC and diff after tx of UTI/PNA to be sure it resolves. 5. I suspect the PNA is due to bacteremic spread from the UTI Visit Charges Inpatient E&M: 05819 Subs Hosp L3
--- NOTE | 2020-12-01 14:25 | CHAPLAIN ---
Type of Pastoral Visit _x__ Initial Visit ___ Follow-up Visit ___ On-call Visit ___ General Patient Visit ___ Spiritual Assessment ___ Family Conference ___ Bereavement ___ Rapid Response ___ Code Blue ___ Other (describe below) Pastoral Care Referral From _x__ Patient ___ Family ___ Nurse ___ Physician ___ Hydraulic Technician ___ Traffic Coordinator ___ Other (describe below) Sacrament/Intervention _x__ Active listening ___ Anointing ___ Judaism ___ Bereavement ___ Communion ___ Sun exploration ___ _x__ Life review ___ Prayer ___ Reconciliation ___ Sacrament of Sick _x__ Supportive presence ___ Wedding ___ Other (describe below) Pastoral Comments patient lying in bed and watching news on TV; pt is talkative and gives life review and political views; pt states he prays every morning and is not distressed about his situation; pt then states he is ready to sleep
[2020-12-01] MEDS: oxyCODONE 5 MG Tablet PO ×2 (14:37→22:26)
[2020-12-01 14:46] LABS: Ferritin 1187 ng/mL (26-388); Iron 21 ug/dL (65-175); Iron Binding Capacity,Total 143 ug/dL (250-450); PERCENT IRON SATURATION 14.7 % (15.0-55.0)
[2020-12-01 14:46] LABS: Base Excess 1 mmol/L (-2 to +2); Bicarbonate 24.9 mmol/L (22-26); Blood Gas Specimen Type ART; FI02 44; O2 Delivery Device Cannula; PO2 122 mmHG (75-100); SITE R Brach; SO2 99 % (95-99); Total Carbon Dioxide 26 mmol/L; pCO2 37.7 mmHg (35-45); pH 7.43 (7.35-7.45)
[2020-12-01 14:49] VITALS: BP 148/71; PULSE 78; RESP 16; TEMP 36.1; O2SAT 98
[2020-12-01] MEDS: levoFLOXacin 500 MG Tablet PO (17:43)
[2020-12-01 17:44] VITALS: PULSE 78
[2020-12-02] VITALS (7 sets, daily range): BP systolic 104–127; BP diastolic 52–76; PULSE 67–85; RESP 16–18; TEMP 36.2–36.3; O2SAT 91–98
[2020-12-02] MEDS: Oxybutynin 5 MG Tablet PO ×2 (06:43→17:31)
[2020-12-02] MEDS: levoFLOXacin 250 MG Tablet PO (06:43)
[2020-12-02] MEDS: Levothyroxine 100 MCG Tablet 200 MCG PO (06:43)
[2020-12-02] MEDS: Senna/Docusate Sodium 1 Tablet PO (06:44)
[2020-12-02] MEDS: Famotidine 20 MG Tablet 40 MG PO (06:44)
[2020-12-02] MEDS: APIXABAN 2.5 MG TABLET PO ×2 (06:44→17:32)
[2020-12-02] MEDS: Metoprolol(XL)Succ 25 MG Tablet PO ×2 (06:44→17:31)
[2020-12-02] MEDS: Acetaminophen 500 MG Tablet 1000 MG PO ×3 (06:45→21:35)
[2020-12-02] MEDS: oxyCODONE 5 MG Tablet PO ×3 (09:05→23:19)
--- NOTE | 2020-12-02 10:38 | CASEMGMT ---
Social Work SW met w/pt for initial assessment. SW reviewed code status w/pt, pt confirms full code status. SW reviewed MOLST form w/pt, communication to physician and form in chart. SW explained insurance and that length of stay determined by how pt is doing and by insurance--SW explained this will be reviewed in plan of care meeting. OT then came in to see pt and pt also having shortness of breath, nurse aware. Anticipated discharge will be home w/ and possible home health. Pt has had a referral to [facility] after the last hospitalization however did not go as pt states he did not need it. Pt on oxygen here, may need oxygen for homegoing. SW will continue to follow. MELISSA Rush
[2020-12-02] MEDS: Ferrous Sulfate 325 MG Tablet PO (11:20)
--- NOTE | 2020-12-02 12:30 | NURSING ---
This nurse called and talked with Dr. Garcia office to update that pt was transferred to TCU and to see if he is going to come to TCU to see pt or if he is going to see him in office as an outpatient, Dr. Garcia was consulted and seen pt on acute side of hospital on 11/29/20, Office staff stated they would update Dr. Garcia and would be in contact.
--- NOTE | 2020-12-02 13:20 | MDS.RN ---
completed pain interview for nessa 12/03/20
--- NOTE | 2020-12-02 15:53 | CON.PCM.RE_ITS ---
HPI Consult Data Date of Consult: 12/02/20 HPI Narrative HPI Narrative: DEMETRIUS BURNS, is a 85 M who presents [facility] Medical History Abnormal EKG Anemia Atrial fibrillation Cancer Cat bite Chest pain Chronic pain Chronic steroid use CRF (chronic renal failure) Elevated serum creatinine Essential hypertension Former smoker GERD (gastroesophageal reflux disease) History of esophageal stricture History of thyroid cancer Hyperglycemia Hypothyroidism Irregular heart beat Osteoarthritis PAC (premature atrial contraction) Sarcoid arthropathy Sarcoidosis Sarcoidosis of lung Home Medications famotidine 20 mg tablet 40 mg PO DAILY tab 04/12/20 [History Last Taken 11/23/20] levothyroxine 200 mcg tablet 200 mcg PO DAILY 04/12/20 [History Last Taken 11/23/20] apixaban 2.5 mg tablet 2.5 mg PO BID 09/20/20 [History Last Taken Unknown] furosemide 20 mg tablet 20 mg PO DAILY PRN 09/20/20 [History Last Taken 08/10] metoprolol succinate 25 mg tablet,extended release 24 hr 25 mg PO BID 09/20/20 [History Last Taken 11/23/20] oxybutynin chloride 5 mg tablet 5 mg PO BID tab 09/20/20 [History Last Taken 11/23/20] acetaminophen [Tylenol Extra Strength] 500 mg PO BID 11/23/20 [History Last Taken 11/23/20] oxycodone 5 mg PO BID 11/23/20 [History Last Taken 11/23/20] sulfamethoxazole-trimethoprim [Bactrim DS] 1 tab PO BID 11/30/20 [History Last Taken Unknown] Allergy/AdvReac Type Severity Reaction Status Date / Time No Known Allergies Allergy Verified 11/23/20 11:13 Family History Other CVA (cerebral vascular accident) Surgical History History of spinal surgery History of thyroidectomy S/P TURP (status post transurethral resection of prostate) Social History (Updated 11/30/20 @ 20:[address] Tony Molina MD) household members: spouse Smoking Status: Former smoker alcohol intake: current details: occasional substance use type: does not use caffeine: Yes Type: coffee Number of servings: 4 ROS Constitutional Constitutional: Denies chills, fever(s) or weight gain ENT HEENT: Denies headache(s), nasal congestion or nasal discharge Cardiovascular Cardiovascular: Denies chest pain or palpitations Respiratory/Chest Respiratory/Chest: Denies cough, excessive phlegm production or shortness of breath with exertion Gastrointestinal Gastrointestinal: Denies abdominal pain, nausea or vomiting Genitourinary Genitourinary: Denies dysuria Musculoskeletal Musculoskeletal: Denies joint pain or joint swelling Integumentary Integumentary: Denies rash or wounds Neurologic Neurologic: Denies focal weakness, numbness or tingling Psychiatric Psychiatric: Reports auditory hallucinations; Denies anxiety, depression, homicidal ideation or suicidal ideation Medical Records Data Medical Nutrition Assessment Dietitian: Nutrition Therapy Diagnosis Start: 12/01/20 10:47 Freq: Status: Active Protocol: Document 12/01/20 11:17 BP (Rec: 12/01/20 11:17 BP [id number]) Nutrition Malnutrition Evidence of Malnutrition Exists Yes Malnutrition (severe): Chronic Evidenced By Suboptimal Energy Intake ( Severe),Weight Loss (Severe), Physical Changes (Moderate) Clinical Problem Chronic Disease or Condition Related Malnutrition Etiology severe protein-calorie malnutrition in the context of chronic disease r/t inadequate oral intake d/t severe oropharyngeal dysphagia and advanced age/debility Signs/Symptoms as evidenced by pt consuming < /=50% energy intake compared to estimated energy needs x 3- 4 months, unintentional weight loss of 16% x3-4 months, moderate temporal scooping/ depression, moderate orbital region depression/hollow look, and moderate clavicle bone protrusion. Status Active Problem Recommendation Dietitian Recommendations/Changes Continue Regular diet with no added salt. Will provided fortified foods at pt meals. Will continue ensure pudding with meals. Will provide Lonnie 1 pkt BID at [facility] to promote wound healing. Will discontinue ensure enlive d/t res requires honey/ moderately thick liquids. Lab / Micro Data Result Diagrams: 12/01/20 05:20 12/01/20 05:20 Micro: Microbiology 12/02/20 09:50 Sputum, Expectorated/Coughed Gram Stain - Final
--- NOTE | 2020-12-02 15:54 | NURSING ---
Addendum entered by Rosa Adams 12/02/20 17:40: NOTIFIED OF NEW ORDERS. Original Note: DR. CRABTREE ON UNIT TO SEE R' FOR F/U. N.O. LASIX AND RENAL PROFILE.
[2020-12-02] MEDS: 0.9% Saline Lock 10 ML Syringe IV (17:32)
[2020-12-02] MEDS: Furosemide 20 MG Tablet PO (17:48)
--- NOTE | 2020-12-02 18:07 | NURSING ---
Addendum entered by Rosa Adams 12/02/20 18:14: R' AND NOTIFIED OF NEW ORDERS. I.S. GIVEN AND ENCOURAGED QHR WHILE AWAKE. Original Note: NOTIFIED DR RASHID OF PAIN 10/29 AFTER OXYIR GIVEN. ORDER TO INCREASE TYLENOL TO Q8HRS. ALOS, ADDED MUCINEX AND I.S. ORDER.
--- NOTE | 2020-12-02 20:27 | NURSING ---
Pt. unable to swallow pills whole. Dr. Watson notified via phone, new order received to stop mucinex as ordered and change to liquid guaifenesin 600mg TID
[2020-12-02] MEDS: guaiFENesin 10 ML UDC (200MG/10ML) 30 ML PO (21:32)
--- NOTE | 2020-12-03 03:44 | NURSING ---
T&R at this time. Thickened water offered and accepted without difficulty. Kpad offered and declined despite education, patient states it won't work. No distress observed or reported. Call light in reach.
[2020-12-03 04:33] VITALS: BP 126/63; PULSE 65; RESP 14; TEMP 36.1; O2SAT 92
[2020-12-03] MEDS: 0.9% Saline Lock 10 ML Syringe IV (04:35)
[2020-12-03] MEDS: Famotidine 20 MG Tablet 40 MG PO (04:43)
[2020-12-03 04:44] VITALS: BP 126/63; PULSE 65
[2020-12-03] MEDS: Levothyroxine 100 MCG Tablet 200 MCG PO (04:44)
[2020-12-03] MEDS: Furosemide 20 MG Tablet PO (04:44)
[2020-12-03] MEDS: Metoprolol(XL)Succ 25 MG Tablet PO ×2 (04:44→17:48)
[2020-12-03] MEDS: Senna/Docusate Sodium 1 Tablet PO ×2 (04:44→17:48)
[2020-12-03] MEDS: Oxybutynin 5 MG Tablet PO ×2 (04:44→17:49)
[2020-12-03] MEDS: Acetaminophen 500 MG Tablet 1000 MG PO ×3 (04:45→22:06)
[2020-12-03] MEDS: levoFLOXacin 250 MG Tablet PO (04:45)
[2020-12-03] MEDS: APIXABAN 2.5 MG TABLET PO ×2 (04:45→17:49)
[2020-12-03] MEDS: guaiFENesin 10 ML UDC (200MG/10ML) 30 ML PO ×3 (04:46→22:07)
--- NOTE | 2020-12-03 08:21 | CPS ---
STARTED BY NURSING
--- NOTE | 2020-12-03 08:32 | NURSING ---
Notified Dr. Watson of patient request to have liquid pain medication, like I took at home Received order to d/c oxy 5 mg q6hr PRN. Received new order for Roxinol 2-4 mg q4hr PRN for pain. Will add order.
--- NOTE | 2020-12-03 10:09 | PCM.CONS.R ---
Assessment & Plan Assessment/Plan (1) Acute kidney injury: PLAN: YONIS was likely due to volume depletion. Renal function improved with IV fluid. Renal function is now actually below his usual baseline serum creatinine which is around 1.3 mg/dL. I believe that YONIS from volume depletion has resolved. The patient is now developing some edema of the lower extremity along with crackles in the bases of his lungs. Therefore, I will restart Lasix at his home dose which is 20 mg/day. We will monitor renal function to make sure there is no recurrence of volume depletion. (2) Chronic kidney disease, stage 3a: PLAN: Baseline serum creatinine is 1.3 mg/dL. (3) Hypertension: PLAN: BP is well controlled on metroprolol. Continue to monitor BP. (4) Urinary tract infection: QUALIFIERS: Urinary tract infection type: site unspecified PLAN: The patient is being treated with levofloxacin for UTI. Management as per hospital medicine service. (5) Sarcoidosis: PLAN: The patient has a history of sarcoidosis although he is not on active treatment with corticosteroid. Serum calcium is actually on the low side. We will monitor calcium and renal function. HPI Consult Data Date of Consult: 12/02/20 HPI Narrative HPI Narrative: The patient is a 85-year-old man who is known to our service from the [facility] hospital side. The patient has a history of atrial fibrillation, GERD, hypertension, thyroid cancer, hypothyroidism and sarcoidosis. The patient was admitted from 11/23/2020 until 11/28/2020 with UTI complicated by acute kidney injury. We were consulted while he was in the acute care hospital for YONIS which was thought to be due to volume depletion and diuresis. His serum creatinine peaked at 2.58 mg/dL on 11/28/2020. Renal function improved after holding furosemide and giving back some IV fluid. Serum creatinine from 12/01/2020 is 1.19 mg/dL. However, the patient is starting to develop lower extremity edema. The patient denies current chest pain, shortness of breath at rest, nausea, vomiting or diarrhea. Appetite is not bad. He denies lower urinary tract symptoms such as urinary frequency, urgency, hesitancy or incontinence. [facility] Medical History Abnormal EKG Anemia Atrial fibrillation Cancer Cat bite Chest pain Chronic pain Chronic steroid use CRF (chronic renal failure) Elevated serum creatinine Essential hypertension Former smoker GERD (gastroesophageal reflux disease) History of esophageal stricture History of thyroid cancer Hyperglycemia Hypothyroidism Irregular heart beat Osteoarthritis PAC (premature atrial contraction) Sarcoid arthropathy Sarcoidosis Sarcoidosis of lung Home Medications famotidine 20 mg tablet 40 mg PO DAILY tab 04/12/20 [History Last Taken 11/23/20] levothyroxine 200 mcg tablet 200 mcg PO DAILY 04/12/20 [History Last Taken 11/23/20] apixaban 2.5 mg tablet 2.5 mg PO BID 09/20/20 [History Last Taken Unknown] furosemide 20 mg tablet 20 mg PO DAILY PRN 09/20/20 [History Last Taken 11/23/20] metoprolol succinate 25 mg tablet,extended release 24 hr 25 mg PO BID 09/20/20 [History Last Taken 11/23/20] oxybutynin chloride 5 mg tablet 5 mg PO BID tab 09/20/20 [History Last Taken 11/23/20] acetaminophen [Tylenol Extra Strength] 500 mg PO BID 11/23/20 [History Last Taken 11/23/20] oxycodone 5 mg PO BID 11/23/20 [History Last Taken 11/23/20] sulfamethoxazole-trimethoprim [Bactrim DS] 1 tab PO BID 11/30/20 [History Last Taken Unknown] Allergy/AdvReac Type Severity Reaction Status Date / Time No Known Allergies Allergy Verified 11/23/20 11:13 Family History Other CVA (cerebral vascular accident) Surgical History History of spinal surgery History of thyroidectomy S/P TURP (status post transurethral resection of prostate) Social History (Updated 11/30/20 @ 20:[address] Tony Molina MD) household members: spouse Smoking Status: Former smoker alcohol intake: current details: occasional substance use type: does not use caffeine: Yes Type: coffee Number of servings: 4 ROS ROS Narrative Review of systems as per HPI. 10 out of 10 review of system was done and are otherwise noncontributory to the current HPI. Physical Exam Narrative General: Alert and oriented x3, no apparent distress HEENT: Normocephalic, atraumatic. Mucous membrane moist. There is no mucosal erythema. Hearing is intact. Pupils are equal round and reactive to light. Neck: Supple, no JVD. Heart: Normal S1, S2. There is no rubs, murmurs or gallops. Lungs: Bibasilar crackles. Abdomen: Normal bowel sound, soft, nontender, no guarding or rebound. Extremity: 1+ lower extremity edema. There is no clubbing or cyanosis. Full passive range of motion. Neurologic: No focal neurologic deficit. Psychiatric: Normal mood and affect. Medical Records Data Medical Nutrition Assessment Dietitian: Nutrition Therapy Diagnosis Start: 12/01/20 10:47 Freq: Status: Active Protocol: Document 12/01/20 11:17 BP (Rec: 12/01/20 11:17 BP [id number]) Nutrition Malnutrition Evidence of Malnutrition Exists Yes Malnutrition (severe): Chronic Evidenced By Suboptimal Energy Intake ( Severe),Weight Loss (Severe), Physical Changes (Moderate) Clinical Problem Chronic Disease or Condition Related Malnutrition Etiology severe protein-calorie malnutrition in the context of chronic disease r/t inadequate oral intake d/t severe oropharyngeal dysphagia and advanced age/debility Signs/Symptoms as evidenced by pt consuming < /=50% energy intake compared to estimated energy needs x 3- 4 months, unintentional weight loss of 16% x3-4 months, moderate temporal scooping/ depression, moderate orbital region depression/hollow look, and moderate clavicle bone protrusion. Status Active Problem Recommendation Dietitian Recommendations/Changes Continue Regular diet with no added salt. Will provided fortified foods at pt meals. Will continue ensure pudding with meals. Will provide Lonnie 1 pkt BID at [facility] to promote wound healing. Will discontinue ensure enlive d/t res requires honey/ moderately thick liquids. Lab / Micro Data Result Diagrams: 12/01/20 05:20 12/01/20 05:20 Micro: Microbiology 12/02/20 17:20 Stool Stool Occult Blood (LEANN) - Final 12/02/20 09:50 Sputum, Expectorated/Coughed Gram Stain - Final
[2020-12-03] MEDS: Ferrous Sulfate 325 MG Tablet PO (11:16)
[2020-12-03] MEDS: morphine (oral solution) 10MG/0.5ML Syringe SL/PO (11:24)
[2020-12-03 14:14] VITALS: BP 122/53; PULSE 76; RESP 16; TEMP 36.7; O2SAT 98
[2020-12-03 17:48] VITALS: PULSE 76
[2020-12-04] MEDS: morphine (oral solution) 10MG/0.5ML Syringe SL/PO ×4 (00:47→21:05)
[2020-12-04 01:09] VITALS: PULSE 90; RESP 12; O2SAT 98
[2020-12-04] MEDS: guaiFENesin 10 ML UDC (200MG/10ML) 30 ML PO ×3 (04:37→20:58)
[2020-12-04] MEDS: Acetaminophen 500 MG Tablet 1000 MG PO ×3 (04:38→21:01)
[2020-12-04] MEDS: Oxybutynin 5 MG Tablet PO ×2 (04:39→17:33)
[2020-12-04] MEDS: Famotidine 20 MG Tablet 40 MG PO (04:39)
[2020-12-04] MEDS: Furosemide 20 MG Tablet PO (04:39)
[2020-12-04] MEDS: Levothyroxine 100 MCG Tablet 200 MCG PO (04:40)
[2020-12-04] MEDS: APIXABAN 2.5 MG TABLET PO ×2 (04:40→17:33)
[2020-12-04] MEDS: levoFLOXacin 250 MG Tablet PO (04:40)
[2020-12-04] MEDS: Senna/Docusate Sodium 1 Tablet PO ×2 (04:40→17:33)
[2020-12-04 06:42] LABS: Albumin, Serum 1.8 g/dL (3.2-5.0); BUN 42 mg/dL (7-18); BUN/Creat Ratio 26.6 RATIO (10-20); Calcium,Total 8.4 mg/dL (8.5-10.1); Chloride 109 mmol/L (98-107); Creatinine, Serum 1.58 mg/dL (0.70-1.30); EST Glomerular Filtration Rate 45 mL/min (>60); Est Glom Filt Rate - Afr Amer 54 mL/min (>60); Estimated Creatinine Clearance 31.96 ml/min; Glucose 84 mg/dL (74-106); Phosphorus 4.7 mg/dL (2.5-4.9); Potassium 4.8 mmol/L (3.5-5.1); Sodium Level 142 mmol/L (136-145)
[2020-12-04 07:30] VITALS: BP 97/66; PULSE 98; RESP 14; TEMP 36.3
[2020-12-04] MEDS: Ferrous Sulfate 325 MG Tablet PO (11:57)
--- NOTE | 2020-12-04 11:59 | PCM.PN.REN ---
Subjective Subjective Following for acute kidney injury. The patient denies shortness of breath at rest well with He actually did physical therapy per RN yesterday. There is no diarrhea. He denies nausea or vomiting. Objective Data Objective Data Vital Signs: Vital Signs Temp Pulse Resp BP Pulse Ox 97.3 F L 98 14 97/66 98 12/04/20 07:30 12/04/20 07:30 12/04/20 07:30 12/04/20 07:30 12/04/20 01:09 Oxygen Flow Rate (L/min) 2 Oxygen Delivery Method Nasal Cannula Weight: 71.3 kg Body Mass Index (BMI) 24.6 Intake & Output: Intake and Output for Last 24 Hours 12/02/20 12/03/20 12/04/20 23:59 23:59 23:59 Intake Total 620 / 620 460 / 460 50 / 50 Output Total 1100 / 1100 1000 / 1000 650 / 650 Balance -480 / -480 -540 / -540 -600 / -600 Medical Nutrition Assessment Dietitian: Nutrition Therapy Diagnosis Start: 12/01/20 10:47 Freq: Status: Active Protocol: Document 12/01/20 11:17 BP (Rec: 12/01/20 11:17 BP [id number]) Nutrition Malnutrition Evidence of Malnutrition Exists Yes Malnutrition (severe): Chronic Evidenced By Suboptimal Energy Intake ( Severe),Weight Loss (Severe), Physical Changes (Moderate) Clinical Problem Chronic Disease or Condition Related Malnutrition Etiology severe protein-calorie malnutrition in the context of chronic disease r/t inadequate oral intake d/t severe oropharyngeal dysphagia and advanced age/debility Signs/Symptoms as evidenced by pt consuming < /=50% energy intake compared to estimated energy needs x 3- 4 months, unintentional weight loss of 16% x3-4 months, moderate temporal scooping/ depression, moderate orbital region depression/hollow look, and moderate clavicle bone protrusion. Status Active Problem Recommendation Dietitian Recommendations/Changes Continue Regular diet with no added salt. Will provided fortified foods at pt meals. Will continue ensure pudding with meals. Will provide Lonnie 1 pkt BID at [facility] to promote wound healing. Will discontinue ensure enlive d/t res requires honey/ moderately thick liquids. Lab / Micro Data Result Diagrams: 12/01/20 05:20 12/04/20 04:50 Labs: Laboratory Results - last 24 hr 12/04/20 04:50: Sodium 142, Potassium 4.8, Chloride 109 H, Carbon Dioxide 27.0, BUN 42 H, Creatinine 1.58 H, Estim Creat Clear Calc 31.96, Est GFR (MDRD) Af Amer 54 L, Est GFR (MDRD) Non-Af 45 L, BUN/Creatinine Ratio 26.6 H, Glucose 84, Calcium 8.4 L, Phosphorus 4.7, Albumin 1.8 L Micro: Microbiology 12/02/20 09:50 Sputum, Expectorated/Coughed Gram Stain - Final 12/02/20 09:50 Sputum, Expectorated/Coughed Respiratory Culture - Final Presumptive C albicans 12/02/20 17:20 Stool Stool Occult Blood (LEANN) - Final Physical Exam Narrative General: Alert and oriented x3, no apparent distress Neck: Supple, no JVD. Heart: Normal S1, S2. There is no rubs, murmurs or gallops. Lungs: Bibasilar crackles. Abdomen: Normal bowel sound, soft, nontender, no guarding or rebound. Extremity: No lower extremity edema. There is no clubbing or cyanosis. Assessment & Plan Assessment/Plan (1) Acute kidney injury: PLAN: YONIS was likely due to volume depletion. Renal function improved with IV fluid when he was at the acute care hospital. I restarted the patient back on Lasix on 12/02/2020 since his creatinine was below usual baseline. However, repeat serum creatinine today is worse at 1.58 mg/dL. Since there is absence of edema on exam today, I will stop Lasix for now. Basilar crackles on exam may be due to lower respiratory infection. We will continue to watch him clinically. Recheck renal function again on 12/06/2020 since he did get a dose of Lasix today before it was discontinued. (2) Chronic kidney disease, stage 3a: PLAN: Baseline serum creatinine is 1.3 mg/dL. (3) Hypertension: PLAN: BP is actually on the lower side although he is not symptomatic. He is on metoprolol only. Continue to monitor BP. (4) Urinary tract infection: QUALIFIERS: Urinary tract infection type: site unspecified PLAN: The patient is being treated with levofloxacin for UTI. Management as per hospital medicine service. (5) Sarcoidosis: PLAN: The patient has a history of sarcoidosis although he is not on active treatment with corticosteroid. Serum calcium is normal. We will monitor calcium and renal function.
[2020-12-04 14:27] VITALS: BP 129/51; PULSE 91; RESP 15; TEMP 36.4; O2SAT 99
[2020-12-04 17:34] VITALS: PULSE 91
[2020-12-04] MEDS: Metoprolol(XL)Succ 25 MG Tablet PO (17:34)
[2020-12-04 20:38] VITALS: O2SAT 93
--- NOTE | 2020-12-04 21:25 | NURSING ---
Pt c/o being cold, warm blanket given, temp checked 99.4 oral, tylenol given crushed in applesauce, took without difficulty. Will continue to monitor.
[2020-12-04 23:15] VITALS: TEMP 37.5
--- NOTE | 2020-12-04 23:15 | NURSING ---
Temp rechecked- 99.5 oral. Tongue and mucous membranes dry and cracked. Oral care performed with toothettes and mouthwash. Mouth moisturizer applied to lips and a small amount placed on tongue which pt moved across tongue himself. Cool washcloth applied to forehead. Sheet removed from feet, but would like slipper socks left in place. Call light w/ in reach.
[2020-12-05] VITALS (7 sets, daily range): BP systolic 90–109; BP diastolic 43–61; PULSE 63–113; RESP 16–22; TEMP 36.2–37.1; O2SAT 90–92
[2020-12-05] MEDS: Famotidine 20 MG Tablet 40 MG PO (07:05)
[2020-12-05] MEDS: levoFLOXacin 250 MG Tablet PO (07:05)
[2020-12-05] MEDS: Senna/Docusate Sodium 1 Tablet PO (07:05)
[2020-12-05] MEDS: APIXABAN 2.5 MG TABLET PO ×2 (07:05→17:02)
[2020-12-05] MEDS: Acetaminophen 500 MG Tablet 1000 MG PO ×3 (07:05→22:26)
[2020-12-05] MEDS: Levothyroxine 100 MCG Tablet 200 MCG PO (07:06)
[2020-12-05] MEDS: Oxybutynin 5 MG Tablet PO ×2 (07:08→17:02)
[2020-12-05] MEDS: guaiFENesin 10 ML UDC (200MG/10ML) 30 ML PO (07:09)
--- NOTE | 2020-12-05 07:10 | NURSING ---
Pt awakens easily this morning, very dry this morning, pt states he is ok this morning, meds given, but pt only able to take 4 spoonfuls of thickened robitussin. Mouth care given, pt took 5 spoonfuls of thickened water and then said that's enough. Encouraged pt to try more to stay hydrated. O2 remains at 3l per nc. HOB left elevated after meds given.
--- NOTE | 2020-12-05 08:00 | NURSING ---
Pt very lethargic BP 90/49 Pulse 113 mucosa very dry Intake very poor d/t pt not liking thickened liquids. Dr. Watson updated new order for D5w 1/2ns 75ml 1000ml.
[2020-12-05] MEDS: Dext 5%-0.45% NS 1,000 ML 75 ML IV (09:20)
[2020-12-05] MEDS: morphine (oral solution) 10MG/0.5ML Syringe SL/PO ×2 (09:43→22:31)
--- NOTE | 2020-12-05 13:25 | PN.PALL_ITS ---
Subjective Subjective Palliative asked to see the patient again due to a decline with dysphagia. Discussed with ST Joyce and nurse, Funmilayo. Originally saw patient 11/25/2020 as an inpatient for palliative care consultation secondary to generalized weakness, functional decline, and supportive care for comorbid conditions. He has since moved to the TCU 11/30 for further rehab. Patient has history of esophageal stricture and thyroid cancer. He appears to be aspirating despite restrictions in his diet. He is only receiving teaspoon ful size bites of liquid and is still not able to successfully swallow. He is so weak, he cannot complete the recommended 3 hard swallows. There is concerns for ongoing aspiration. Patient also has a history of sarcoidosis, acute on chronic renal failure, atrial fibrillation, hypertension, polyosteoarthritis, and anemia. He is on chronic steroids. He also has chronic neck and back pain and follows with Dr. Taylor for pain management. He is receiving IV fluids for an acute kidney injury, thought to be likely related to volume depletion. Nephrology was consulted and saw the patient 12/03, at which time he noted he had some increased lower extremity edema and crackles in the bases of his lungs. He restarted Lasix at that time, which is 20 mg a day. The following day, Lasix was discontinued since lower extremity edema improved. However, patient is still receiving the IV fluids. I did discuss with nurse and they are to clarify if this is to be continued. I did call his and discuss my recommendations of deciding between PEG tube and hospice, which I did lean towards hospice at this time. I did discuss the risks of aspiration, pneumonia, as well as other complications given his weakness and comorbid conditions. I also spoke with the patient and family member visiting regarding my recommendations. Patient appears to be resistant to hospice, states that is just giving up and he is not willing to do that. He denies any pain, shortness of breath, or cough. He does have shortness of breath on occasion. He is very weak and having difficulties overall with strength. He is being treated for UTI as well. Objective Data Objective Data Reviewed labs and progress notes, vitals, nurses notes. Vital Signs: Vital Signs Temp Pulse Resp BP Pulse Ox 97.1 F L 90 22 H 99/43 L 90 12/05/20 13:19 12/05/20 13:19 12/05/20 13:19 12/05/20 13:19 12/05/20 13:19 Oxygen Flow Rate (L/min) 4 Oxygen Delivery Method Nasal Cannula Weight: 71.3 kg Body Mass Index (BMI) 24.6 Intake & Output: Intake and Output for Last 24 Hours 12/03/20 12/04/20 12/05/20 23:59 23:59 23:59 Intake Total 460 / 460 170 / 170 60 / 60 Output Total 1000 / 1000 1150 / 1150 500 / 500 Balance -540 / -540 -980 / -980 -440 / -440 Medical Nutrition Assessment Dietitian: Malnutrition Criteria Met Start: 12/01/20 10:47 Freq: Status: Active Protocol: Document 12/01/20 11:17 BP (Rec: 12/01/20 11:17 BP [id number]) Nutrition Malnutrition Evidence of Malnutrition Exists Yes Malnutrition (severe): Chronic Evidenced By Suboptimal Energy Intake ( Severe),Weight Loss (Severe), Physical Changes (Moderate) Clinical Problem Chronic Disease or Condition Related Malnutrition Etiology severe protein-calorie malnutrition in the context of chronic disease r/t inadequate oral intake d/t severe oropharyngeal dysphagia and advanced age/debility Signs/Symptoms as evidenced by pt consuming < /=50% energy intake compared to estimated energy needs x 3- 4 months, unintentional weight loss of 16% x3-4 months, moderate temporal scooping/ depression, moderate orbital region depression/hollow look, and moderate clavicle bone protrusion. Status Active Problem Recommendation Dietitian Recommendations/Changes Continue Regular diet with no added salt. Will provided fortified foods at pt meals. Will continue ensure pudding with meals. Will provide Lonnie 1 pkt BID at [facility] to promote wound healing. Will discontinue ensure enlive d/t res requires honey/ moderately thick liquids. Lab / Micro Data Result Diagrams: 12/01/20 05:20 12/04/20 04:50 Micro: Microbiology 12/02/20 09:50 Sputum, Expectorated/Coughed Gram Stain - Final 12/02/20 09:50 Sputum, Expectorated/Coughed Respiratory Culture - Final Presumptive C albicans 12/02/20 17:20 Stool Stool Occult Blood (LEANN) - Final Physical Exam Const alert, oriented x3 and no apparent distress Constitutional Narrative: very pleasant and cooperative HEENT normocephalic and head/scalp atraumatic Mouth: dry mucous membranes Neck General: trachea midline Resp normal respiratory effort and normal air movement Effort and Inspection: symmetric chest movement Auscultation: crackles bilateral base (Few basilar crackles, fine) and diminished lung sounds; Negative for rhonchi or wheezes Cardio regular rhythm, S1 normal heart sound and S2 normal heart sound Rate: tachycardic GI soft to palpation, non-tender and non-distended Extremity General Extremity: edema bilateral (1+ pitting bilateral lower extremities, shins to feet.); Negative for clubbing or cyanosis Skin Skin Narrative: Skin to bilateral lower extremities thin/taut, edema present Neuro CN's II-XII intact bilaterally and no focal motor deficits Psych mental status grossly normal Psych Narrative: Patient is optimistic, wants to recover and get back home. He is somewhat unrealistic with his expectations regarding his health, but is receptive to discussion. Attitude: calm Memory / Cognition: memory grossly intact Assessment & Plan Assessment/Plan (1) Debility: (2) Dysphagia: (3) Community acquired bacterial pneumonia: (4) Acute respiratory failure with hypoxemia: (5) Edema: (6) Sarcoidosis: (7) Chronic kidney disease, stage 3a: (8) UTI (urinary tract infection): (9) Weakness: (10) Atrial fibrillation: QUALIFIERS: Atrial fibrillation type: unspecified Qualified Code(s): I48.91 - Unspecified atrial fibrillation (11) History of thyroid cancer: (12) Chronic steroid use: PLAN: 85-year-old male seen today for palliative follow-up, not currently enrolled but still in the hospital. Declining with increased dysphagia, weakness, likely aspiration pneumonia, overall functional decline. 1. Dysphagia and weakness: Discussed results of evaluation from speech therapist this morning, recommendations have been n.p.o. but patient wishes to continue with fluid intake. He has declined PEG tube in the past. We discussed hospice versus PEG tube, this is pretty much his options at this point. 12/05:He does have some rales in his bases but does not feel short of breath. He remains on oxygen. Nephrology had started on home dose of Lasix at 20 mg p. o. daily. Patient has been getting IV fluids for hypotension and YONIS. He is still on IV fluids, asked nursing to clarify with nephrology and with attending if they intend on continuing the fluids. He does have some lower extremity edema today. 2. Pneumonia/respiratory failure/sarcoidosis/CKD stage III with YONIS/UTI/atrial fibrillation/chronic steroid use/history of thyroid cancer: Complicates overall care, management, recovery, and prognosis. Patient is very debilitated and cachectic. With his dysphagia and weakness, he is hospice appropriate. There is a plan of care meeting tomorrow, 12/06. I cannot attend as I already have scheduled patients, however I reached out to our liaison to see if they can make the meeting at 1 PM. They will let TCU staff know. His overall prognosis is q uite poor at this point. I would also be happy to talk with family over the phone if they have more questions or concerns. I did speak to his on the phone today, and family in the room. Thank you for the opportunity to participate in this patient's care, please do not hesitate to contact [facility] with any further questions or concerns. Palliative direct line is [phone]. Please contact me with any urgent needs at [phone]. Greater than 50% of F2F visit dedicated to education and counseling of palliative care services, medications, comorbid conditions and potential assistance with management, and plan of care moving forward. Start time: 1245 End time: 1350
--- NOTE | 2020-12-05 13:37 | NURSING ---
Pt having difficulty with swallowing pt is very tired. D/T risk of aspiration pneumonia held Ferrous.
--- NOTE | 2020-12-05 15:26 | NURSING ---
wound photo: right heel
--- NOTE | 2020-12-05 15:43 | NURSING ---
PT HAS APPOINTMENT WITH [facility] ON 01/11/21 AT 11 AM. PER OFFICE,IF PT GOES HOSPICE THE APPOINTMENT IS TO BE CANCELED.
--- NOTE | 2020-12-05 15:48 | PCM.PN.RX ---
Progress Note - Pharmacy Subjective: TCU Admission Objective: Allergies No Known Allergies Allergy (Verified 11/23/20 11:13) Current Medications Generic Name Dose Route Start Last Admin Trade Name Freq PRN Reason Stop Dose Admin Acetaminophen 1,000 mg 12/02/20 22:00 12/05/20 14:09 Acetaminophen 500 Mg Tablet PO 1,000 mg Q8 OK Administration Apixaban 2.5 mg 11/30/20 18:00 12/05/20 07:05 Apixaban 2.5 Mg Tablet PO 2.5 mg BID OK Administration Bisacodyl 10 mg 11/30/20 16:51 Bisacodyl 10 Mg Suppository RC DAILY PRN PRN Constipation Calamine/Phenol 1 applic 12/05/20 18:00 Menthol/Lanolin/Calamine/Znox 113 Gm Tube TOPICAL BID [facility] Protocol Famotidine 40 mg 12/01/20 06:00 12/05/20 07:05 Famotidine 20 Mg Tablet PO 40 mg DAILY OK Administration Ferrous Sulfate 300 mg 12/05/20 12:40 12/05/20 13:37 Ferrous Sulfate 300 Mg/5 Ml Udc PO Not Given LUNCH [facility] Guaifenesin 30 ml 12/03/20 06:00 12/05/20 14:35 Guaifenesin 10 Ml Udc (200mg/10ml) PO Not Given TID [facility] Dextrose/Sodium Chloride 1,000 mls @ 75 mls/hr 12/05/20 08:35 12/05/20 09:20 IV 12/05/20 21:54 75 mls/hr .[id number] OK Administration Levofloxacin 250 mg 12/02/20 06:00 12/05/20 07:05 Levofloxacin 250 Mg Tablet PO 250 mg DAILY@0600 [facility] Administration Levothyroxine Sodium 200 mcg 12/01/20 06:00 12/05/20 07:06 Levothyroxine 100 Mcg Tablet PO 200 mcg 0600 [facility] Administration Metoprolol Succinate 25 mg 11/30/20 18:00 12/05/20 08:42 Metoprolol(Xl)Succ 25 Mg Tablet PO Not Given BID OK Morphine Sulfate 2 - 4 mg 12/03/20 08:35 12/05/20 09:43 Morphine (Oral Solution) 10mg/0.5ml Syringe SL/PO 4 mg Q4H PRN PRN Administration Pain Score 1-10 Nutritional Formula 1 packet 12/01/20 17:00 12/05/20 09:54 Nutritional Supplement (Lonnie) Packet PO 1 packet BIDCM OK Administration Oxybutynin Chloride 5 mg 11/30/20 18:00 12/05/20 07:08 Oxybutynin 5 Mg Tablet PO 5 mg BID OK Administration Senna/Docusate Sodium 1 tablet 12/01/20 06:00 12/05/20 07:05 Senna/Docusate Sodium 1 Tablet PO 1 tablet BID OK Administration Sodium Chloride 10 - 40 ml 11/30/20 18:26 12/03/20 04:35 0.9% Saline Lock 10 Ml Syringe IV 10 ml UD PRN Administration SALINE FLUSH Tuberculin PPD 0.1 ml 12/08/20 10:00 Tuberculin,Purif.Prot.Deriv. 50 Tu/Ml Vial ID 12/08/20 10:01 X1 ONE Problem List (Last Reviewed 11/30/20 @ 20:[address] Tony Molina MD) Acute respiratory failure with hypoxemia (Acute) Community acquired bacterial pneumonia (Acute) Overactive bladder (Acute) Edema (Acute) Hypertension (Chronic) Gastroesophageal reflux disease (Acute) Atrial fibrillation (Acute) Sarcoidosis (Acute) Dysphagia (Acute) Urinary tract infection (Acute) Acute kidney injury (Acute) Debility (Acute) Chronic kidney disease, stage 3a (Chronic) UTI (urinary tract infection) (Acute) Weakness (Acute) Atrial fibrillation (Acute) History of thyroid cancer (Chronic) Chronic steroid use (Chronic) Sarcoidosis (Chronic) Vital Signs Temp Pulse Resp BP Pulse Ox 97.1 F L 90 22 H 99/43 L 90 12/05/20 13:19 12/05/20 13:19 12/05/20 13:19 12/05/20 13:19 12/05/20 13:19 Oxygen Flow Rate (L/min) 4 Oxygen Delivery Method Nasal Cannula Weight: 71.3 kg Body Mass Index (BMI) 24.6 Sodium 142 mmol/L (136-145) 12/04/20 04:50 Potassium 4.8 mmol/L (3.5-5.1) 12/04/20 04:50 Chloride 109 mmol/L (98-107) H 12/04/20 04:50 Carbon Dioxide 27.0 mmol/L (21.0-32.0) 12/04/20 04:50 Anion Gap 7 (5-15) 12/01/20 05:20 BUN 42 mg/dL (7-18) H 12/04/20 04:50 Creatinine 1.58 mg/dL (0.70-1.30) H 12/04/20 04:50 Est GFR (MDRD) Af Amer 54 mL/min (>60) L 12/04/20 04:50 Est GFR (MDRD) Non-Af 45 mL/min (>60) L 12/04/20 04:50 BUN/Creatinine Ratio 26.6 RATIO (10-20) H 12/04/20 04:50 Glucose 84 mg/dL (74-106) 12/04/20 04:50 Assessment/Plan: 1. Pain: acetaminophen 1000mg Q8 and morphine oral solution 2-4mg PO/SL Q4H PRN pain 1-10. Please continue to monitor for increased pain, PRN usage, constipation and respiratory depression. *2. Enterobacter cloacae UTI: levofloxacin 250mg PO daily. Please consider adding a stop date. Please continue to monitor for S/S of infection, renal function, and diarrhea. 3. Atrial fibrillation: metoprolol succinate 50mg PO BID and apixaban 2.5mg PO BID. Please continue to monitor HR (last 90), BP (last 99/43), S/S of bleeding and hemoglobin (last 8.7g/dL). 4. GERD: famotidine 20mg PO daily. Changed from 40mg due to renal function. Please continue to monitor for S/S of GERD and renal funciton. 5. Hypothyroidism: levothyroxine 200mcg PO daily. Please continue to monitor TSH (last 03/2020) and for S/S of hypo/hyperthyroidism. 6. Overactive bladder: oxybutynin 5mg PO BID. Please continue to monitor for S/S of overactive bladder and anticholinergic symptoms. 7. Iron deficiency: ferrous sulfate oral solution 300mg/5mL PO lunch. Please continue to monitor hemoglobin (last 8.7g/dL), constipation and dark stools. 8. Cough: guaifenesin liquid 600mg PO TID. Please continue to monitor for cough. Psychotropic Medications: None Unnecessary Medications: None Bowel Regimen: senna/docusate 1T PO BID and bisacodyl 10mg RC daily PRN constipation. Please continue to monitor for constipation and PRN usage. Date of Note:: 12/05/20
--- NOTE | 2020-12-05 16:54 | NURSING ---
Pt's daughter brought in Smoothit for pt. Thickened smoothie with thickener to honey thick. Educated pt and family on risk of aspiration.
[2020-12-05] MEDS: Menthol/Lanolin/Calamine/Znox 113 GM Tube 1 APPLIC TOPICAL (17:02)
--- NOTE | 2020-12-05 19:10 | NURSING ---
Pt taking Metoprolol XL which is not suppose to be Crushed. Dr. David new order for Metoprolol Tartrate 12.5mg.
--- NOTE | 2020-12-05 22:38 | NURSING ---
HOB elevated, mouth care given, pt asked to sit up and watch a movie, found a western on tv, pt states that's perfect, a ander never gets tired of westerns. No distress noted, call light in reach
--- NOTE | 2020-12-06 02:37 | NURSING ---
Mouth care given and moisturizer put on lips.
[2020-12-06 06:11] VITALS: BP 95/55; PULSE 90; RESP 20; TEMP 36.6; O2SAT 94
[2020-12-06] MEDS: levoFLOXacin 250 MG Tablet PO (06:16)
[2020-12-06] MEDS: Acetaminophen 500 MG Tablet 1000 MG PO ×3 (06:17→20:17)
[2020-12-06] MEDS: APIXABAN 2.5 MG TABLET PO ×2 (06:18→18:19)
[2020-12-06] MEDS: Levothyroxine 100 MCG Tablet 200 MCG PO (06:18)
[2020-12-06] MEDS: Senna/Docusate Sodium 1 Tablet PO ×2 (06:19→18:19)
[2020-12-06] MEDS: guaiFENesin 10 ML UDC (200MG/10ML) 30 ML PO (06:19)
[2020-12-06] MEDS: Famotidine 20 MG Tablet PO (06:19)
[2020-12-06] MEDS: Oxybutynin 5 MG Tablet PO ×2 (06:20→18:18)
[2020-12-06] MEDS: Menthol/Lanolin/Calamine/Znox 113 GM Tube 1 APPLIC TOPICAL ×2 (06:22→18:18)
[2020-12-06 06:23] LABS: Albumin, Serum 1.6 g/dL (3.2-5.0); BUN 47 mg/dL (7-18); BUN/Creat Ratio 26.7 RATIO (10-20); Calcium,Total 8.2 mg/dL (8.5-10.1); Chloride 110 mmol/L (98-107); Creatinine, Serum 1.76 mg/dL (0.70-1.30); EST Glomerular Filtration Rate 39 mL/min (>60); Est Glom Filt Rate - Afr Amer 48 mL/min (>60); Estimated Creatinine Clearance 28.69 ml/min; Glucose 89 mg/dL (74-106); Potassium 4.4 mmol/L (3.5-5.1); Sodium Level 142 mmol/L (136-145)
[2020-12-06 06:48] VITALS: O2SAT 94
--- NOTE | 2020-12-06 09:33 | PN.RENAL_ITS ---
Subjective Subjective No acute events. sleeping On NC at 3l/min has jovana Objective Data Objective Data Vital Signs: Vital Signs Temp Pulse Resp BP Pulse Ox 97.8 F 90 20 H 95/55 L 94 12/06/20 06:11 12/06/20 06:11 12/06/20 06:11 12/06/20 06:11 12/06/20 06:48 Oxygen Flow Rate (L/min) 3 Oxygen Delivery Method Nasal Cannula Weight: 71.3 kg Body Mass Index (BMI) 24.6 Intake & Output: Intake and Output for Last 24 Hours 12/04/20 12/05/20 12/06/20 23:59 23:59 23:59 Intake Total 170 / 170 1180 / 1180 Output Total 1150 / 1150 800 / 800 600 / 600 Balance -980 / -980 380 / 380 -600 / -600 Medical Nutrition Assessment Dietitian: Malnutrition Criteria Met Start: 12/01/20 10:47 Freq: Status: Active Protocol: Document 12/01/20 11:17 BP (Rec: 12/01/20 11:17 BP [id number]) Nutrition Malnutrition Evidence of Malnutrition Exists Yes Malnutrition (severe): Chronic Evidenced By Suboptimal Energy Intake ( Severe),Weight Loss (Severe), Physical Changes (Moderate) Clinical Problem Chronic Disease or Condition Related Malnutrition Etiology severe protein-calorie malnutrition in the context of chronic disease r/t inadequate oral intake d/t severe oropharyngeal dysphagia and advanced age/debility Signs/Symptoms as evidenced by pt consuming < /=50% energy intake compared to estimated energy needs x 3- 4 months, unintentional weight loss of 16% x3-4 months, moderate temporal scooping/ depression, moderate orbital region depression/hollow look, and moderate clavicle bone protrusion. Status Active Problem Recommendation Dietitian Recommendations/Changes Continue Regular diet with no added salt. Will provided fortified foods at pt meals. Will continue ensure pudding with meals. Will provide Lonnie 1 pkt BID at [facility] to promote wound healing. Will discontinue ensure enlive d/t res requires honey/ moderately thick liquids. Lab / Micro Data Result Diagrams: 12/01/20 05:20 12/06/20 05:40 Labs: Laboratory Results - last 24 hr 12/06/20 05:40: Sodium 142, Potassium 4.4, Chloride 110 H, Carbon Dioxide 28.0, BUN 47 H, Creatinine 1.76 H, Estim Creat Clear Calc 28.69, Est GFR (MDRD) Af Amer 48 L, Est GFR (MDRD) Non-Af 39 L, BUN/Creatinine Ratio 26.7 H, Glucose 89, Calcium 8.2 L, Phosphorus 4.0, Albumin 1.6 L Micro: Microbiology 12/02/20 09:50 Sputum, Expectorated/Coughed Gram Stain - Final 12/02/20 09:50 Sputum, Expectorated/Coughed Respiratory Culture - Final Presumptive C albicans 12/02/20 17:20 Stool Stool Occult Blood (LEANN) - Final Physical Exam Narrative General: sleeping, no apparent distress Neck: Supple, no JVD. Heart: Normal S1, S2. There is no rubs, murmurs or gallops. Lungs: decreased BS by anterior ascultation Abdomen: Normal bowel sound, soft, nontender, no guarding or rebound. Extremity: +1 lower extremity edema. There is no clubbing or cyanosis. Assessment & Plan Assessment/Plan (1) Acute kidney injury: PLAN: YONIS was likely due to volume depletion. Renal function improved with IV fluid when he was at the acute [facility] hospital. Patient was started back on Lasix on 12/02/2020 since his creatinine was below usual baseline. However, repeat serum creatinine was worse at 1.58 mg/dL. last lasix dose was on 12/04. Cr today is higher 1.7 mg/dl Will give the patient a bolus of IVF 50 cc/hour Will start midodrine 5 mg TID since he has low BP recheck RFP in am (2) Chronic kidney disease, stage 3a: PLAN: Baseline serum creatinine is 1.3 mg/dL. (3) Hypertension: PLAN: BP is actually on the lower side although he is not symptomatic. He is on metoprolol only. Will add midodrine (4) Urinary tract infection: QUALIFIERS: Urinary tract infection type: site unspecified PLAN: The patient is being treated with levofloxacin for UTI. Management as per hospital medicine service. (5) Sarcoidosis: PLAN: The patient has a history of sarcoidosis although he is not on acti ve treatment with corticosteroid. Serum calcium is normal. We will monitor calcium and renal function.
[2020-12-06] MEDS: 0.9% Normal Saline 1,000 ML 500 ML IV (10:01)
[2020-12-06] MEDS: 0.9% Saline Lock 10 ML Syringe IV (10:08)
[2020-12-06] MEDS: Ferrous Sulfate 300 MG/5 ML UDC PO (11:46)
--- NOTE | 2020-12-06 11:50 | CASEMGMT ---
BIMS and PHQ9 interviews completed on this date for MDS assessment. MARIO Parikh
[2020-12-06] MEDS: morphine (oral solution) 10MG/0.5ML Syringe SL/PO ×2 (11:56→20:14)
[2020-12-06] MEDS: Midodrine HCl 5 MG Tablet 10 MG PO ×2 (12:04→18:23)
[2020-12-06 12:08] VITALS: BP 112/52; PULSE 90
--- NOTE | 2020-12-06 12:53 | NURSING ---
Pt's in room Feeding pt and pt educated on risk of aspiration Pneumonia. Pt states he is aware and that he is taking small bites Adv patient that he is a supervised feed and he should staff in room at all times. states that she is in the room at this time and she can help him.
[2020-12-06 15:19] VITALS: BP 115/55; PULSE 83; RESP 20; TEMP 36.3; O2SAT 91
--- NOTE | 2020-12-06 16:27 | CASEMGMT ---
Social Work Plan of Care meeting held on this date with pt, pt and pt son in attendance. Pt is currently receiving PT/OT/ST. Since admission pt has been requiring additional assistance during functional tasks. Pt continues too have difficulty with swallowing requiring honey thick liquids and puree. Pt requesting a regular diet. Team spoke with pt about options of feeding tube vs. hospice. Son asked for meeting outside of room. Team met with son who is realistic about pt care needs and prognosis. SW explained that insurance update is due today and continued stay is not guaranteed. Options of care were presented including continuation in rehab unit if insurance allows, Feeding Tube placement, home with hospice or ECF with hospice. Pt son inquiring about IPU and SW explained that pt would need to meet qualifications to go there. Pt son states he will talk to pt and about options and let team know decision. Pt son Murphy requesting to speak with SW after he spoke with pt and pt . Pt opting for no feeding tube. Son inquiring about pt going to IPU. Son states family cannot provide 24 hour care. SW again explained that pt would need to be symptomatic and qualify for the IPU and this may not happen for the pt. Son requests that SW contact hospice for IPU. Ref[facility] fax[facility] and Joon spoke to Zhou and updated on the above. Zhou will pass referral on to Dr. Sears and will let SW know determination. SW did provide pt son with list of private duty aids and area alf facilities. Nursing updated. SW to continue to follow. MARIO Parikh
--- NOTE | 2020-12-06 16:36 | CHAPLAIN ---
Type of Pastoral Visit ___ Initial Visit _x__ Follow-up Visit ___ On-call Visit ___ General Patient Visit ___ Spiritual Assessment ___ Family Conference ___ Bereavement ___ Rapid Response ___ Code Blue ___ Other (describe below) Pastoral Care Referral From ___ Patient ___ Family _x__ Nurse ___ Physician ___ Momd Teacher ___ Sole Rounder ___ Other (describe below) Sacrament/Intervention _x__ Active listening ___ Anointing ___ Uatsdin ___ Bereavement ___ Communion _x__ Sun exploration ___ _x__ Life review _x__ Prayer ___ Reconciliation ___ Sacrament of Sick _x__ Supportive presence ___ Wedding ___ Other (describe below) Pastoral Comments RN recommended visit as patient and family are considering hospice; pt welcoming and is talkative about his ideas and his life experiences; pt states that he is ready for whatever is to happen with him and that he is going to never give up; pt expresses his philosophy on life and his shinto beliefs; prayer is welcomed
[2020-12-06 18:21] VITALS: BP 99/44; PULSE 90
--- NOTE | 2020-12-06 18:30 | NURSING ---
Pt in room at this time gave pt his try and pt is in bed sitting at 90 degrees eating dinner by himself. Reinforced speech therapy's orders. Pt voiced that he understands and is okay and not having any issues with eating.
[2020-12-07 06:00] VITALS: BP 135/64; PULSE 72
[2020-12-07] MEDS: Menthol/Lanolin/Calamine/Znox 113 GM Tube 1 APPLIC TOPICAL ×2 (06:01→17:57)
[2020-12-07] MEDS: Oxybutynin 5 MG Tablet PO ×2 (06:01→17:55)
[2020-12-07 06:02] VITALS: PULSE 72
[2020-12-07] MEDS: APIXABAN 2.5 MG TABLET PO ×2 (06:02→17:56)
[2020-12-07] MEDS: Metoprolol Tartrate 25 MG Tablet 12.5 MG PO (06:02)
[2020-12-07] MEDS: levoFLOXacin 250 MG Tablet PO (06:02)
[2020-12-07] MEDS: Senna/Docusate Sodium 1 Tablet PO ×2 (06:03→17:56)
[2020-12-07] MEDS: Famotidine 20 MG Tablet PO (06:03)
[2020-12-07] MEDS: Levothyroxine 100 MCG Tablet 200 MCG PO (06:03)
[2020-12-07] MEDS: Acetaminophen 500 MG Tablet 1000 MG PO ×3 (06:04→22:17)
[2020-12-07 06:10] LABS: Anion Gap 4 (5-15); BUN 40 mg/dL (7-18); Chloride 113 mmol/L (98-107); Creatinine, Serum 1.43 mg/dL (0.70-1.30); Glucose 82 mg/dL (74-106); Sodium Level 144 mmol/L (136-145)
[2020-12-07 06:55] VITALS: O2SAT 95
--- NOTE | 2020-12-07 08:39 | CASEMGMT ---
Social Work Return call from Zhou at [facility] who states Dr. Sears reviewed pt information and while pt is appropriate for Hospice services, he does not currently qualify for the I[facility]. Phone call to pt son Murphy and updated. Murphy states he will be in a little after 9 to talk with pt and family to make decision on course of action. offered for Hospice nurse to meet with them and Murphy is agreeable. Zhou at [facility] notified and will meet with pt and family later this morning. MARIO Parikh
[2020-12-07] MEDS: Midodrine HCl 5 MG Tablet 10 MG PO ×3 (09:09→17:55)
--- NOTE | 2020-12-07 09:38 | PCM.PN.REN ---
Subjective Subjective No acute events Objective Data Objective Data Vital Signs: Vital Signs Temp Pulse Resp BP Pulse Ox 97.4 F L 72 20 H 135/64 H 95 12/06/20 15:19 12/07/20 06:02 12/06/20 15:19 12/07/20 06:00 12/07/20 06:55 Oxygen Flow Rate (L/min) 3 Oxygen Delivery Method Room Air Weight: 72.66 kg Body Mass Index (BMI) 24.6 Intake & Output: Intake and Output for Last 24 Hours 12/05/20 12/06/20 12/07/20 23:59 23:59 23:59 Intake Total 1180 / 1180 240 / 240 240 / 240 Output Total 800 / 800 1050 / 1050 650 / 650 Balance 380 / 380 -810 / -810 -410 / -410 Medical Nutrition Assessment Dietitian: Malnutrition Criteria Met Start: 12/01/20 10:47 Freq: Status: Active Protocol: Document 12/01/20 11:17 BP (Rec: 12/01/20 11:17 BP [id number]) Nutrition Malnutrition Evidence of Malnutrition Exists Yes Malnutrition (severe): Chronic Evidenced By Suboptimal Energy Intake ( Severe),Weight Loss (Severe), Physical Changes (Moderate) Clinical Problem Chronic Disease or Condition Related Malnutrition Etiology severe protein-calorie malnutrition in the context of chronic disease r/t inadequate oral intake d/t severe oropharyngeal dysphagia and advanced age/debility Signs/Symptoms as evidenced by pt consuming < /=50% energy intake compared to estimated energy needs x 3- 4 months, unintentional weight loss of 16% x3-4 months, moderate temporal scooping/ depression, moderate orbital region depression/hollow look, and moderate clavicle bone protrusion. Status Active Problem Recommendation Dietitian Recommendations/Changes Continue Regular diet with no added salt. Will provided fortified foods at pt meals. Will continue ensure pudding with meals. Will provide Lonnie 1 pkt BID at [facility] to promote wound healing. Will discontinue ensure enlive d/t res requires honey/ moderately thick liquids. Lab / Micro Data Result Diagrams: 12/01/20 05:20 12/07/20 05:23 Labs: Laboratory Results - last 24 hr 12/07/20 05:23: Sodium 144, Potassium 4.0, Chloride 113 H, Carbon Dioxide 27.0, Anion Gap 4 L, BUN 40 H, Creatinine 1.43 H, BUN/Creatinine Ratio 28.0 H, Glucose 82 Micro: Microbiology 12/02/20 09:50 Sputum, Expectorated/Coughed Gram Stain - Final 12/02/20 09:50 Sputum, Expectorated/Coughed Respiratory Culture - Final Presumptive C albicans 12/02/20 17:20 Stool Stool Occult Blood (LEANN) - Final Physical Exam Narrative General: sleeping, no apparent distress Neck: Supple, no JVD. Heart: Normal S1, S2. There is no rubs, murmurs or gallops. Lungs: decreased BS by anterior ascultation Abdomen: Normal bowel sound, soft, nontender, no guarding or rebound. Extremity: +1 lower extremity edema. There is no clubbing or cyanosis. Assessment & Plan Assessment/Plan (1) Acute kidney injury: PLAN: YONIS was likely due to volume depletion. Renal function improved with IV fluid when he was at the acute care hospital. Patient was started back on Lasix on 12/02/2020 since his creatinine was below usual baseline. However, repeat serum creatinine on December 04 was worse at 1.58 mg/dL. last lasix dose was on 12/04. Patient received a bolus of IV fluid December 06 for continuous creatinine rise Creatinine started better 1.4 today No need for IV fluid. No need for diuretics Okay to give Lasix if worsening breathing status Continue midodrine 10 mg TID since he has low BP recheck RFP in am (2) Chronic kidney disease, stage 3a: PLAN: Baseline serum creatinine is 1.3 mg/dL. (3) Hypertension: PLAN: BP is actually on the lower side although he is not symptomatic. He is on metoprolol only. Continue midodrine e (4) Urinary tract infection: QUALIFIERS: Urinary tract infection type: site unspecified PLAN: The patient is being treated with levofloxacin for UTI. Management as per hospital medicine service. (5) Sarcoidosis: PLAN: The patient has a history of sarcoidosis although he is not on active treatment with corticosteroid. Serum calcium is normal. We will monitor calcium and renal function.
[2020-12-07] MEDS: Ferrous Sulfate 300 MG/5 ML UDC PO (13:21)
[2020-12-07] MEDS: morphine (oral solution) 10MG/0.5ML Syringe SL/PO ×2 (13:33→22:34)
[2020-12-07 15:56] VITALS: PULSE 60; RESP 16; O2SAT 92
[2020-12-07 16:00] VITALS: BP 114/60; PULSE 55; RESP 16; TEMP 35.9; O2SAT 92
--- NOTE | 2020-12-07 16:48 | CASEMGMT ---
Social Work SW spoke with Mauricio from [facility] who has met with pt and family. Pt plans to return home with his on 12/09/20 with hospice services. SW met with pt and pt confirmed this discharge plan. Team updated. Discharge Date: 12/09/20 Discharge Disposition: Home with , hospice services MARIO Parikh
[2020-12-07 17:55] VITALS: PULSE 55
--- NOTE | 2020-12-07 20:30 | PCM.DC.SUM ---
Providers Date of Admission: 11/30/20 Primary Care Physician: Dr. 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 Routine Comment: Reason for Consult:: Wound to coccyx, right heel Comments:: patient needs heel boots 12/02/20 15:55 Consult: Nephrology Routine Consulting Provider: Florina Sebastian Reason for Consult: RENAL FAILURE EMERGENT Consult: No MD Notified: Yes Date Notified: 12/02/20 Time Notified: 15:55 Method of Notification: Answering Service Comments:: SAW R' ON UNIT Reason For Visit: DEBILITY, ACUTE KIDNEY INJURY Diagnosis Discharge Diagnosis (1) Acute kidney injury: Status: Acute Code(s): N17.9 - Acute kidney failure, unspecified (2) Chronic kidney disease, stage 3a: Status: Chronic Code(s): N18.31 - Chronic kidney disease, stage 3a (3) Hypertension: Status: Chronic Code(s): I10 - Essential (primary) hypertension (4) Urinary tract infection: Status: Acute Code(s): N39.0 - Urinary tract infection, site not specified Qualifiers: Urinary tract infection type: site unspecified (5) Sarcoidosis: Status: Chronic Code(s): D86.9 - Sarcoidosis, unspecified Medications at Discharge Home Medications famotidine 20 mg tablet 40 mg PO DAILY tab 04/12/20 levothyroxine 200 mcg tablet 200 mcg PO DAILY 04/12/20 oxybutynin chloride 5 mg tablet 5 mg PO BID tab 09/20/20 acetaminophen 1,000 mg PO Q8 #0 tab 12/07/20 metoprolol tartrate 12.5 mg PO BID #0 tab 12/07/20 Hospital Course Operations None Procedures None Summary of Care Provided Minutes Spent on Discharge: 35 Hospital Course: 85 year old male with below past medical history hospitalized for weakness secondary to prerenal acute kidney injury, urinary tract infection, complicated by encephalopathy, admitted to TCU with debility, here for rehabilitation, strengthening, prior to discharge home with . Resident dying. Discharge home with 12/09/2020, Hospice services. Physical Exam Const alert and oriented x3 General Appearance: cooperative HEENT normocephalic Eyes PERRL and EOMs intact bilaterally Neck supple, no JVD and no carotid bruits Resp normal respiratory effort, normal air movement and clear to auscultation bilaterally Cardio regular rate and regular rhythm GI normal to inspection, nondistended, normoactive bowel sounds, non-tender and non-distended Extremity normal capillary refill General Extremity: Negative for edema Skin no rashes or lesions noted General Skin Exam: no breakdown Psych affect normal Appearance: appropriate Medical Records Data Medical Nutrition Assessment Dietitian: Malnutrition Criteria Met Start: 12/01/20 10:47 Freq: Status: Active Protocol: Document 12/01/20 11:17 BP (Rec: 12/01/20 11:17 BP [id number]) Nutrition Malnutrition Evidence of Malnutrition Exists Yes Malnutrition (severe): Chronic Evidenced By Suboptimal Energy Intake ( Severe),Weight Loss (Severe), Physical Changes (Moderate) Clinical Problem Chronic Disease or Condition Related Malnutrition Etiology severe protein-calorie malnutrition in the context of chronic disease r/t inadequate oral intake d/t severe oropharyngeal dysphagia and advanced age/debility Signs/Symptoms as evidenced by pt consuming < /=50% energy intake compared to estimated energy needs x 3- 4 months, unintentional weight loss of 16% x3-4 months, moderate temporal scooping/ depression, moderate orbital region depression/hollow look, and moderate clavicle bone protrusion. Status Active Problem Recommendation Dietitian Recommendations/Changes Continue Regular diet with no added salt. Will provided fortified foods at pt meals. Will continue ensure pudding with meals. Will provide Lonnie 1 pkt BID at [facility] to promote wound healing. Will discontinue ensure enlive d/t res requires honey/ moderately thick liquids. Weight / BMI Weight Weight: 72.66 kg Body Mass Index (BMI) 24.6 ABG / Lab / Microbiology Data Result Diagrams: 12/01/20 05:20 12/07/20 05:23 Laboratory: Laboratory Results - last 24 hr 12/07/20 05:23: Sodium 144, Potassium 4.0, Chloride 113 H, Carbon Dioxide 27.0, Anion Gap 4 L, BUN 40 H, Creatinine 1.43 H, BUN/Creatinine Ratio 28.0 H, Glucose 82 Microbiology: Microbiology 12/02/20 09:50 Sputum, Expectorated/Coughed Gram Stain - Final 12/02/20 09:50 Sputum, Expectorated/Coughed Respiratory Culture - Final Presumptive C albicans 12/02/20 17:20 Stool Stool Occult Blood (LEANN) - Final D/C Instructions Discharge Diet: No restrictions Discharge Activity: Return to Normal Activity, May Shower and Use Walker Weight Bearing Status: Weight bearing as tolerated Call your doctor if you observe: Fever of 101 or Higher, Inability to urinate, Inability to have a bowel movement, Shortness of breath, Dizziness, Fainting spells, Swelling in the ankles, Chest pain and Uncontrolled pain Please Follow Up With: Angeline Batista MD (PCP) When: 1 week. Meaningful Use Info Meaningful Use Diagnoses (Choose all that apply): None applicable Discharge Plan Admission Admit Date/Time: 11/30/20 16:12 Primary Reason for Your Visit: Debility. Attending Provider: Tony Molina Chi Primary Care Provider: Angeline Batista Consulting Providers: Florina Sebastian Instructions Additional Instructions / Restrictions: [facility] Discharge Orders/Prescriptions Prescriptions: New acetaminophen 500 mg Tablet 1,000 mg PO Q8 Qty: 0 RF: 0 metoprolol tartrate 25 mg Tablet 12.5 mg PO BID Qty: 0 RF: 0 Continued levothyroxine 200 mcg tablet 200 mcg PO DAILY RF: 0 famotidine 20 mg tablet 40 mg PO DAILY RF: 0 oxybutynin chloride 5 mg tablet 5 mg PO BID RF: 0 Discontinued furosemide 20 mg tablet 20 mg PO DAILY PRN (Reason: edema) RF: 0 Eliquis 2.5 mg tablet 2.5 mg PO BID RF: 0 metoprolol succinate 25 mg tablet extended release 24 hr 25 mg PO BID RF: 0 oxycodone 5 mg/5 mL solution 5 mg PO BID RF: 0 acetaminophen [Tylenol Extra Strength] 500 mg Tablet 500 mg PO BID RF: 0 sulfamethoxazole-trimethoprim [Bactrim DS] 800-160 mg tablet 1 tab PO BID RF: 0 Referrals / Follow Up: Angeline Batista MD [Primary Care Provider] - Disposition Disposition (needs filled in before D/C Order can be placed): Hospice in Home
[2020-12-08] VITALS (7 sets, daily range): BP systolic 123–134; BP diastolic 54–65; PULSE 67–98; RESP 16–18; TEMP 35.7–36.1; O2SAT 91–97
[2020-12-08 05:55] LABS: Hemoglobin 9.3 g/dL (13.0-16.5); Mean Corpuscular Hgb 27.6 pg (27.0-32.0); Mean Platelet Vol. 8.6 fl (6.2-12.0); POSITIVE COUNT YES; POSITIVE MORPHOLOGY YES; RBC Distribution Width CV 15.3 % (11.6-14.6); RBC Distribution Width SD 51.1 fl (35.1-43.9); Red Blood Count 3.37 M/mm3 (4.6-6.2); White Blood Count 10.9 K/mm3 (4.4-11.0)
[2020-12-08] MEDS: Menthol/Lanolin/Calamine/Znox 113 GM Tube 1 APPLIC TOPICAL ×2 (06:03→17:24)
[2020-12-08] MEDS: Acetaminophen 500 MG Tablet 1000 MG PO ×3 (06:03→21:05)
[2020-12-08] MEDS: Metoprolol Tartrate 25 MG Tablet 12.5 MG PO ×2 (06:04→17:23)
[2020-12-08 06:05] LABS: Differential Indicated MANUAL DIFF
[2020-12-08] MEDS: Senna/Docusate Sodium 1 Tablet PO ×2 (06:06→17:24)
[2020-12-08] MEDS: levoFLOXacin 250 MG Tablet PO (06:06)
[2020-12-08] MEDS: APIXABAN 2.5 MG TABLET PO ×2 (06:06→17:24)
[2020-12-08] MEDS: Famotidine 20 MG Tablet PO (06:06)
[2020-12-08] MEDS: Oxybutynin 5 MG Tablet PO ×2 (06:06→17:23)
[2020-12-08 06:08] LABS: Platelet Count 817 K/mm3 (150-450)
[2020-12-08 06:31] LABS: Anion Gap 4 (5-15); BUN 43 mg/dL (7-18); BUN/Creat Ratio 34.7 RATIO (10-20); Calcium,Total 8.8 mg/dL (8.5-10.1); Chloride 111 mmol/L (98-107); Creatinine, Serum 1.24 mg/dL (0.70-1.30); EST Glomerular Filtration Rate 59 mL/min (>60); Est Glom Filt Rate - Afr Amer 71 mL/min (>60); Estimated Creatinine Clearance 40.72 ml/min; Glucose 84 mg/dL (74-106); Potassium 4.2 mmol/L (3.5-5.1); Sodium Level 143 mmol/L (136-145)
[2020-12-08 06:33] LABS: Total Cells Counted 100 (MANUAL DIFF)
[2020-12-08 06:35] LABS: Neutrophil-Segmented 68 % (47-70)
[2020-12-08 06:36] LABS: Eosinophil 2 % (0-5); Lymphocyte 19 % (19-41); Metamyelocyte 1 % (0-1); Monocyte 9 % (0-10); Myelocyte 1 % (0-0); Platelet Estimate MKD INC (ADEQ); Red Cell Morphology NORM C+C NORMAL (NORM C&C)
[2020-12-08 06:37] LABS: Absolute Lymphocyte Count 2.08 X10^3/uL (0.83-4.51); Absolute Neutrophil Count 7.4 X10^3/uL (2.0-7.7); Lymphocyte # 2.08 X10^3/ul (0.83-4.51); Neutrophil # 7.44 X10^3/uL (2.7-7.7)
--- NOTE | 2020-12-08 06:59 | NURSING ---
notified of critical platelet count of 817. no new orders received.
[2020-12-08] MEDS: Levothyroxine 100 MCG Tablet 200 MCG PO (07:03)
[2020-12-08] MEDS: Midodrine HCl 5 MG Tablet 10 MG PO ×3 (08:52→17:23)
[2020-12-08] MEDS: morphine (oral solution) 10MG/0.5ML Syringe SL/PO ×2 (08:52→21:06)
--- NOTE | 2020-12-08 09:28 | PCM.PN.REN ---
Subjective Subjective No N/V. No worsening breathing Objective Data Objective Data Vital Signs: Vital Signs Temp Pulse Resp BP Pulse Ox 96.2 F L 77 16 129/65 H 95 12/08/20 06:01 12/08/20 06:04 12/08/20 06:01 12/08/20 06:04 12/08/20 06:40 Oxygen Flow Rate (L/min) 3 Oxygen Delivery Method Nasal Cannula Weight: 72.66 kg Body Mass Index (BMI) 24.6 Intake & Output: Intake and Output for Last 24 Hours 12/06/20 12/07/20 12/08/20 23:59 23:59 23:59 Intake Total 240 / 240 480 / 480 160 / 160 Output Total 1050 / 1050 650 / 650 625 / 625 Balance -810 / -810 -170 / -170 -465 / -465 Medical Nutrition Assessment Dietitian: Malnutrition Criteria Met Start: 12/01/20 10:47 Freq: Status: Active Protocol: Document 12/01/20 11:17 BP (Rec: 12/01/20 11:17 BP [id number]) Nutrition Malnutrition Evidence of Malnutrition Exists Yes Malnutrition (severe): Chronic Evidenced By Suboptimal Energy Intake ( Severe),Weight Loss (Severe), Physical Changes (Moderate) Clinical Problem Chronic Disease or Condition Related Malnutrition Etiology severe protein-calorie malnutrition in the context of chronic disease r/t inadequate oral intake d/t severe oropharyngeal dysphagia and advanced age/debility Signs/Symptoms as evidenced by pt consuming < /=50% energy intake compared to estimated energy needs x 3- 4 months, unintentional weight loss of 16% x3-4 months, moderate temporal scooping/ depression, moderate orbital region depression/hollow look, and moderate clavicle bone protrusion. Status Active Problem Recommendation Dietitian Recommendations/Changes Continue Regular diet with no added salt. Will provided fortified foods at pt meals. Will continue ensure pudding with meals. Will provide Lonine 1 pkt BID at [facility] to promote wound healing. Will discontinue ensure enlive d/t res requires honey/ moderately thick liquids. Lab / Micro Data Result Diagrams: 12/08/20 05:18 12/08/20 05:18 Labs: Laboratory Results - last 24 hr 12/08/20 05:18: WBC 10.9, RBC 3.37 L, Hgb 9.3 L, Hct 31.0 L, MCV 92.0, MCH 27.6, MCHC 30.0 L, RDW Std Deviation 51.1 H, RDW Coeff of Juan 15.3 H, Plt Count 817 H*, MPV 8.6, Neut % (Auto) Not Reportable, Absolute Neuts (auto) 7.4, Absolute Lymphs (auto) 2.08, Total Counted 100, Neutrophils % (Manual) 68, Lymphocytes % (Manual) 19, Monocytes % (Manual) 9, Eosinophils % (Manual) 2, Metamyelocytes % 1, Myelocytes % 1 H, Diff Path Review August foll, Platelet Estimate [employer] INC, RBC Morphology NORM C+C 12/08/20 05:18: Sodium 143, Potassium 4.2, Chloride 111 H, Carbon Dioxide 28.0, Anion Gap 4 L, BUN 43 H, Creatinine 1.24, Estim Creat Clear Calc 40.72, Est GFR (MDRD) Af Amer 71, Est GFR (MDRD) Non-Af 59 L, BUN/Creatinine Ratio 34.7 H, Glucose 84, Calcium 8.8 Micro: Microbiology 12/02/20 09:50 Sputum, Expectorated/Coughed Gram Stain - Final 12/02/20 09:50 Sputum, Expectorated/Coughed Respiratory Culture - Final Presumptive C albicans 12/02/20 17:20 Stool Stool Occult Blood (LEANN) - Final Physical Exam Narrative General: sleeping, no apparent distress Neck: Supple, no JVD. Heart: Normal S1, S2. There is no rubs, murmurs or gallops. Lungs: decreased BS by anterior ascultation Abdomen: Normal bowel sound, soft, nontender, no guarding or rebound. Extremity: +1 lower extremity edema. There is no clubbing or cyanosis. Assessment & Plan Assessment/Plan (1) Acute kidney injury: PLAN: YONIS was likely due to volume depletion. Renal function improved with IV fluid when he was at the acute care hospital. Patient was started back on Lasix on 12/02/2020 since his creatinine was below usual baseline. However, repeat serum creatinine on December 04 was worse at 1.58 mg/dL. last lasix dose was on 12/04. Patient received a bolus of IV fluid on December 06 for continuous creatinine rise Cr has been improving for the lat 24 hrs. Cr is down to 1.2 mg/dl today No need for IV fluid. No need for diuretics Okay to give Lasix if worsening breathing status Continue midodrine 10 mg TID recheck RFP in am (2) Chronic kidney disease, stage 3a: PLAN: Baseline serum creatinine is 1.3 mg/dL. (3) Hypertension: PLAN: BP is actually on the lower side although he is not symptomatic. He is on metoprolol only. Continue midodrine e (4) Urinary tract infection: QUALIFIERS: Urinary tract infection type: site unspecified PLAN: The patient is being treated with levofloxacin for UTI. Management as per hospital medicine service. (5) Sarcoidosis: PLAN: The patient has a history of sarcoidosis although he is not on active treatment with corticosteroid. Serum calcium is normal. We will monitor calcium and renal function.
[2020-12-08 11:51] LABS: Pathologist Review Reviewed
[2020-12-08] MEDS: Tuberculin,Purif.prot.deriv. 50 TU/ML Vial 0.1 ML ID (12:24)
[2020-12-08] MEDS: Ferrous Sulfate 300 MG/5 ML UDC PO (12:24)
--- NOTE | 2020-12-08 14:47 | CASEMGMT ---
Social Work SW spoke with pt son Murphy and confirmed that pt plans to return home tomorrow 12/09/20. DME to be delivered at noon and Murphy would like transport at 3pm. 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 Pt notified of discharge time and nursing updated. Orders faxed to Hospice and phone call to hospice notifying of discharge date and time. No other SW needs. Discharage Date: 12/09 at 1500 Discharge Dispostion: home with family and services of [facility] MARIO Walden
[2020-12-09 04:58] VITALS: BP 143/77; PULSE 70
[2020-12-09] MEDS: Menthol/Lanolin/Calamine/Znox 113 GM Tube 1 APPLIC TOPICAL (05:02)
[2020-12-09 05:03] VITALS: BP 143/77; PULSE 70
[2020-12-09] MEDS: Oxybutynin 5 MG Tablet PO (05:03)
[2020-12-09] MEDS: APIXABAN 2.5 MG TABLET PO (05:03)
[2020-12-09] MEDS: Metoprolol Tartrate 25 MG Tablet 12.5 MG PO (05:03)
[2020-12-09] MEDS: Acetaminophen 500 MG Tablet 1000 MG PO ×2 (05:04→11:14)
[2020-12-09] MEDS: Levothyroxine 100 MCG Tablet 200 MCG PO (05:04)
[2020-12-09] MEDS: Senna/Docusate Sodium 1 Tablet PO (05:04)
[2020-12-09] MEDS: Famotidine 20 MG Tablet PO (05:04)
[2020-12-09] MEDS: morphine (oral solution) 10MG/0.5ML Syringe SL/PO ×2 (05:10→11:27)
[2020-12-09 05:30] VITALS: PULSE 70; RESP 16
[2020-12-09 06:44] VITALS: O2SAT 96
[2020-12-09] MEDS: Midodrine HCl 5 MG Tablet 10 MG PO ×2 (08:19→11:14)
[2020-12-09] MEDS: Ferrous Sulfate 300 MG/5 ML UDC PO (11:13)
[2020-12-09 14:52] VITALS: BP 128/65; PULSE 67; RESP 16; TEMP 36.1; O2SAT 95
--- NOTE | 2020-12-13 09:01 | MDS.RN ---
Information for the mds was obtained from review of the clinical record, interview of resident, staff, and direct observation of resident's care.
== END 2020-12-09 15:00 | disposition hospice, home (50) | DRG 689 ==
PROVIDERS: Internal Medicine; Internal Medicine Nephrology; Admitting Provider Family Medicine Geriatric Medicine; PCP Family Medicine; Visit Provider Family Medicine Geriatric Medicine
DX: N39.0 Urinary tract infection, site not specified (principal); E43 Unspecified severe protein-calorie malnutrition; N17.9 Acute kidney failure, unspecified; I48.91 Unspecified atrial fibrillation; K21.9 Gastro-esophageal reflux disease without esophagitis; E03.9 Hypothyroidism, unspecified; M15.9 Polyosteoarthritis, unspecified; I12.9 Hypertensive chronic kidney disease with stage 1 through stage 4 chronic kidney disease, or unspecified chronic kidney disease; N18.31 Chronic kidney disease, stage 3a; N32.81 Overactive bladder; D86.86 Sarcoid arthropathy; D86.0 Sarcoidosis of lung; R13.12 Dysphagia, oropharyngeal phase; G89.29 Other chronic pain; Z87.891 Personal history of nicotine dependence; Z79.899 Other long term (current) drug therapy; Z79.01 Long term (current) use of anticoagulants; Z68.24 Body mass index [BMI] 24.0-24.9, adult
CPT/HCPCS: 36415; 36600; 71046; 80047; 80048; 80069; 82274; 82728; 82803; 83540; 83550; 85025; 87070; 87205; 92526; 92610; 93005; 97110; 97116; 97162; 97166; 97530; 97535; 97802; J7030; A4216; J7799